=== PATIENT | female | born 1980 | race Caucasian/White ===

== ENCOUNTER 2024-06-27 08:41 | Outpatient (AMB) | payer MEDICARE, MEDICAID, SELFPAY ==
--- NOTE | 2024-06-27 08:49 | MHC.OFFVIS ---
Vital Signs 06/27/24 09:03 Height 5 ft 2 in Weight 250 lb 3.594 oz BMI 45.8 BP 120/80 Blood Pressure Location Rt brachial Position Sitting Respiration 16 Pulse 104 H Pulse Source Pulse Oximeter Pulse Oximetry (%) 97 Oxygen Delivery Method Room Air Intake Visit Reasons: Arthralgia/ATC med rec recieved Intake Note: Patient presents for Arthralgia. Cyst behind left knee and swollen since March. Right knee pain. Allergies citalopram [From Celexa] Allergy (Mild, Verified 06/27/24 08:54) Abdominal Pain Medication List - Last Reconciled 06/27/24 by Juan Mark MD albuterol sulfate 90 mcg/actuation 2 puffs inhalation Q6H PRN aspirin 81 mg PO DAILY atorvastatin 80 mg PO DAILY fluticasone propionate 50 mcg/actuation 1 spray intranasal BID hydroxychloroquine 400 mg PO DAILY levothyroxine 300 mcg PO DAILY metformin 1,000 mg PO BID semaglutide (Ozempic) 0.25 mg subcut QWEEK HPI Comments Details: L knee swelling since March. ER ruled out DVT with ultrasound. Unable to walk and using walking at times. She is also using compression stockings without benefit. She had x-ray in left knee, which revealed OA and was referred to PT. She started PT and had one session. PT noted a cyst behind knee. Cyst is painful. She also reports that provider also felt a cyst behind her knee. She denies the term Dykes's cyst being mentioned on an ultrasound. She has been taking Celebrex 100 mg twice a day without benefit. At last visit at [facility], I injected her with right knee cortisone injection 02/01/2024 with benefit. Denies fevers, rash, oral ulcers, Raynaud's phenomenon, urinary symptoms. She has been compliant with hydroxychloroquine. She denies compliance with iron supplement. Review of Systems Const All systems reviewed & are unremarkable except as noted in HPI and below Physical Exam Vital Signs: Last Vital Signs Pulse 104 H 06/27/24 09:03 Resp 16 06/27/24 09:03 BP 120/80 06/27/24 09:03 Pulse Ox 97 06/27/24 09:03 Oxygen Delivery Method Room Air 06/27/24 09:03 BMI result Body Mass Index 45.8 Const Other: General: Comfortable CVS: RRR Respiratory: clear to auscultation bilaterally. Good respiratory effort Skin: No lesions seen MSK: No tenderness of any joints. No synovitis. Good range of motion of upper extremities. Nontender joint line of knees. Tenderness of bilateral hamstrings and distal tendon attachment. No Dykes cyst was palpated. No knee effusion was palpated. Knee flexion 90 degrees left side. Assessment & Plan Assessment & Plan (1) Systemic lupus erythematosus: Comment: History of SLE diagnosed 2007 after [facility] admission presenting with pleurisy, cutaneous SLE and positive double-stranded DNA 1:20. She was on prednisone and hydroxychloroquine. History of chronic leukopenia, iron deficiency anemia, low C4 and elevated ESR. She has had myalgias related to uncontrolled hypothyroidism. Clinically quiescent on hydroxychloroquine. Code(s): M32.9 - Systemic lupus erythematosus, unspecified Category: Medical Qualifiers: Systemic lupus erythematosus organ involvement: unspecified Systemic lupus erythematosus type: unspecified Qualified Code(s): M32.9 - Systemic lupus erythematosus, unspecified Plan: Will obtain labs for disease and drug monitoring of high-risk medication this visit Continue hydroxychloroquine 400 mg daily Eye exam for hydroxychloroquine surveillance visual field testing 11/19/2021 is okay. Eye exam September 2023 without toxicity noted. She was supposed to return for visual field testing but patient does not recall following up. I have asked her to call her skin diver for visual field test. Return to clinic in 3 months (2) Other detention (current) drug therapy: Code(s): Z79.899 - Other detention (current) drug therapy Category: Medical Plan: See above. (3) Knee pain, left: Comment: History of osteoarthritis with recent cortisone injection 02/01/2024 with benefit. Subsequently, in March she developed left leg swelling and reports cyst was palpated posterior knee. I did not appreciate popliteal cyst suggestive of Dykes cyst on exam. It is possible that she has had a ruptured Dykes's cyst contributing to left leg swelling. Hamstring strain is contributing to posterior knee pain. Code(s): M25.562 - Pain in left knee Category: Medical Qualifiers: Chronicity: chronic Qualified Code(s): M25.562 - Pain in left knee; G89.29 - Other chronic pain Plan: Continue physical therapy Will increase Celebrex 100 mg b.i.d. to 200 mg b.i.d. Continue wearing compression stockings. When she is not wearing compression stockings she should wear hinged brace. Prescription sent to [facility]. Return to clinic 3 months Orders: Orders Aspartate Amino Transferase Today M32.9 - Systemic lupus erythematosus, unspecified, Z79.899 - Other detention (current) drug therapy Creatinine Today M32.9 - Systemic lupus erythematosus, unspecified, Z79.899 - Other detention (current) drug therapy T Spot TB Today M32.9 - Systemic lupus erythematosus, unspecified, Z79.899 - Other bed bug exterminator (current) drug therapy Complement C4 Today M32.9 - Systemic lupus erythematosus, unspecified, Z79.899 - Other detention (current) drug therapy Anti DNA DS Antibody Today M32.9 - Systemic lupus erythematosus, unspecified, Z79.899 - Other detention (current) drug therapy Alanine Aminotransferase Today M32.9 - Systemic lupus erythematosus, unspecified, Z79.899 - Other bed bug exterminator (current) drug therapy C Reactive Protein Today M32.9 - Systemic lupus erythematosus, unspecified, Z79.899 - Other bed bug exterminator (current) drug therapy Complete Blood Count Auto Diff Today M32.9 - Systemic lupus erythematosus, unspecified, Z79.899 - Other detention (current) drug therapy Erythrocyte Sedimentation Rate Today M32.9 - Systemic lupus erythematosus, unspecified, Z79.899 - Other detention (current) drug therapy Hepatitis B,C Profile Today M32.9 - Systemic lupus erythematosus, unspecified, Z79.899 - Other detention (current) drug therapy Complement C3 Today M32.9 - Systemic lupus erythematosus, unspecified, Z79.899 - Other detention (current) drug therapy UA w Microscopic Today M32.9 - Systemic lupus erythematosus, unspecified, Z79.899 - Other detention (current) drug therapy Medications: New leg brace (Knee Support Brace) As directed Left knee hinged brace. Dx osteoarthritis 1 ea 0RF celecoxib (Celebrex) Take 1 tablet twice a day with food. (Increased dose) 200 mg PO BID 60 caps 2RF Coding Level of Care Code Est Pt Level 4 (58233) Complex EM visit Add On G2211 Diagnoses Systemic lupus erythematosus, unspecified SLE type, unspecified organ involvement status M32.9 Systemic lupus erythematosus organ involvement: unspecified Systemic lupus erythematosus type: unspecified Other detention (current) drug therapy Z79.899 Chronic pain of left knee M25.562; G89.29 Chronicity: chronic
[2024-06-27 09:03] VITALS: BP 120/80; PULSE 104; RESP 16; O2SAT 97; BMI 45.8
== END 2024-06-27 09:35 | disposition home or self-care (01) ==
PROVIDERS: PCP Nurse Practitioner; Visit Provider Internal Medicine Rheumatology
DX: M32.9 Systemic lupus erythematosus, unspecified (principal); Z79.899 Other long term (current) drug therapy; M25.562 Pain in left knee; G89.29 Other chronic pain
CPT/HCPCS: 99214; G2211

== ENCOUNTER → 2024-06-27 08:41 | Outpatient (BNVA) | payer MEDICARE, SELFPAY | PROVIDERS: PCP Nurse Practitioner; Visit Provider Internal Medicine Rheumatology | DX: M32.9 Systemic lupus erythematosus, unspecified (principal); M25.562 Pain in left knee; G89.29 Other chronic pain; Z79.899 Other long term (current) drug therapy | CPT/HCPCS: 99212 ==

== ENCOUNTER 2024-09-27 08:43 | Outpatient (AMB) | payer MEDICARE, MEDICAID, SELFPAY ==
[2024-09-27 08:56] VITALS: BP 122/82; PULSE 93; O2SAT 97; BMI 46.7
--- NOTE | 2024-09-27 08:56 | A.OFFVIS_ITS ---
Vital Signs 09/27/24 08:56 Height 5 ft 2 in Weight 255 lb 4.725 oz BMI 46.7 BP 122/82 Blood Pressure Location Lt brachial Position Sitting Pulse 93 Pulse Source Pulse Oximeter Pulse Oximetry (%) 97 Oxygen Delivery Method Room Air Intake Visit Reasons: Arthralgia/ATC Intake Note: Patient presents for Arthralgia. Pt states that left leg is still swollen from the last time that she was seen. Accompanied by: Spouse Allergies citalopram [From Celexa] Allergy (Mild, Verified 09/27/24 09:02) Abdominal Pain HPI HPI Arthralgia/ATC: Details: She continues to have left knee pain. She completed physical therapy. Pain is mostly localized to the posterior left knee with intermittent anterior pain. She has been taking Celebrex 100 mg twice a day. She was not given higher dose prescribed last visit from pharmacy. Denies fevers, dyspnea, pleurisy, rash, oral ulcers, urinary symptoms, Raynaud's syndrome. Review of Systems Const All systems reviewed & are unremarkable except as noted in HPI and below Physical Exam Vital Signs: Last Vital Signs Pulse 93 09/27/24 08:56 BP 122/82 09/27/24 08:56 Pulse Ox 97 09/27/24 08:56 Oxygen Delivery Method Room Air 09/27/24 08:56 BMI result Body Mass Index 46.7 Const Other: General: Comfortable CVS: RRR Respiratory: clear to auscultation bilaterally. Good respiratory effort Skin: No lesions seen MSK: No tenderness of any joints. No synovitis. Good range of motion of upper extremities. Left knee joint line tenderness. Tenderness of left hamstrings and distal tendon attachment. No Dykes cyst was palpated. No knee effusion was palpated. Knee flexion 90 degrees left side. Soft tissue swelling left calf compared to right. Office Procedures AMB Joint Injection/Aspiration Joint Injection/Aspiration Details: Left knee joint Prep: site was prepped using aseptic technique Injected: 40 mg of, Kenalog, with 1 mL of and 1% plain lidocaine Procedure: The patient tolerated the procedure well. Postprocedure protocol was discussed with patient. Coding 13893 - Large joint Procedure code (CPT) selection complete Office Meds lidocaine (PF) 10 mg/mL (1 %) injection solution Performing Provider: Juan Mark MD Performing Location: [facility] Administered by: Juan Mark MD on 09/27/24 23:24 Dose Route Admin Location Dispensed Lot Number Expiration Date [facility] [place] [employer] 10 mg Infiltration 2 mL [id number] [employer] Kenalog 40 mg/mL suspension for injection Performing Provider: Juan Mark MD Performing Location: [facility] Administered by: Juan Mark MD on 09/27/24 23:24 Dose Route Admin Location Dispensed Lot Number Expiration Date [facility] [place] [employer] 40 mg intra-articular 1 mL [id number] [employer] Assessment & Plan Assessment & Plan (1) Systemic lupus erythematosus: Comment: Clinically quiescent on hydroxychloroquine. She did not have labs done after last visit. History of SLE diagnosed 2007 after [facility] admission presenting with pleurisy, cutaneous SLE and positive double-stranded DNA 1:20. She was on prednisone and hydroxychloroquine. History of chronic leukopenia, iron deficiency anemia, low C4 and elevated ESR. She has had myalgias related to uncontrolled hypothyroidism. Code(s): M32.9 - Systemic lupus erythematosus, unspecified Category: Medical Qualifiers: Systemic lupus erythematosus organ involvement: unspecified Systemic lupus erythematosus type: unspecified Qualified Code(s): M32.9 - Systemic lupus erythematosus, unspecified Plan: Patient will obtain labs for disease and drug monitoring of high-risk medication this visit Continue hydroxychloroquine 400 mg daily Eye exam for hydroxychloroquine surveillance visual field testing 11/19/2021 is okay. Eye exam September 2023 without toxicity noted. She was supposed to return for visual field testing but has not been able to schedule appointment. I have asked her to call her special events assistant for visual field test. If she does not have appointment scheduled by next visit, I will not be able to continue to prescribe hydroxychloroquine. Return to clinic in 3 months (2) Other group home (current) drug therapy: Code(s): Z79.899 - Other long term care pharmacist (current) drug therapy Category: Medical Plan: See above. (3) Osteoarthritis of left knee: Comment: Uncontrolled pain likely leading to secondary hamstring strain. She also had possibility of Dykes's cyst rupture contributing to posterior knee discomfort palpated by ortho provider. I do not appreciate Dykes's cyst on exam. Failed PT. Last cortisone injection left knee 02/01/2024 with benefit. Code(s): M17.12 - Unilateral primary osteoarthritis, left knee Category: Medical Qualifiers: Osteoarthritis type: primary Qualified Code(s): M17.12 - Unilateral primary osteoarthritis, left knee Plan: Patient received left knee cortisone injection knee brace prescription given to patient Continue to do exercises learned from PT If pain does not improve with cortisone injection, she will call office. I will then prescribe Celebrex 200 mg twice a day Return to clinic in 3 months Orders: Orders AMB Joint Injection/Aspiration Today M17.12 - Unilateral primary osteoarthritis, left knee Medications: New hydroxychloroquine 400 mg (2 x 200 mg) PO DAILY 180 tabs 0RF Refilled leg brace (Knee Support Brace) As directed Left knee hinged brace. Dx osteoarthritis 1 ea 0RF Coding Level of Care Code Est Pt Level 4 (29528) Complex EM visit Add On G2211 Diagnoses Systemic lupus erythematosus, unspecified SLE type, unspecified organ involvement status M32.9 Systemic lupus erythematosus organ involvement: unspecified Systemic lupus erythematosus type: unspecified Other long term care pharmacist (current) drug therapy Z79.899 Primary osteoarthritis of left knee M17.12 Osteoarthritis type: primary CPT Codes Coding - 41432 Large joint: 33918 - Large joint ([id number])
--- OUTSIDE RECORDS SUMMARY | 2024-09-27 09:24 | XMS_ITS | Clinical Summary ---
Author Organization [facility] Address [address] [place] [address] Phone Care Team Providers Care School Psychometrist Name Role Phone Janna De Paz Primary Care Provider [phone] Allergies Active Allergy Reactions Criticality Noted Date Comments Citalopram Hydrobromide Diarrhea,Nausea And Vomiting High 01/24/2009 abd cramping. Duloxetine 08/15/2024 Medications ferrous sulfate 325 mg (65 mg elemental iron) tablet Take 1 Tab by mouth 3 times daily. 08/30/2020 Active albuterol HFA (PROAIR HFA ; PROVENTIL HFA ; VENTOLIN HFA) 90 mcg/actuation inhaler Inhale 2 Puffs into the lungs every 6 hours as needed for Cough or Wheezing. 02/17/2012 Active levothyroxine sodium (TIROSINT) 125 mcg capsule Take 1 Tab by mouth daily. 02/02/2012 Active Active Problems Problem Noted Date Diagnosed Date DVT, lower extremity 10/24/2021 Overview (07/17/2024): 11/13/2020 Left LE DVT: near occlusive thrombosis of left common femoral and left femoral vein; occlusive thrombosis of left popliteal and posterior tibial vein Fibroid uterus 07/12/2020 Overview (07/17/2024): 08/14/2019 Pelvic Sono Impression IMPRESSION: Limited exam. Enlarged uterus with at least 2 fibroids measuring up to 9.3 cm. ??Endometrial complex not identified. Depression 01/17/2009 Sleep apnea 07/12/2007 Overview (07/17/2024): Dr lucas on cpap IMO update Systemic lupus erythematosus 03/07/2007 Overview (07/17/2024): 02/05: pleural effusions; + anti-DNA, low complements, arthralgias, rash; treated with Plaquenil and prednisone Eye exam September 2010 Hypothyroidism 11/09/2005 Overview (07/17/2024): Lab Results Component Value Date TSH 45.80 07/12/2020 TSH 10.44 02/29/2012 TSH 18.39 02/17/2012 Referral to endocrine Encounters Date Type Department Care Team Description 09/27/2024 7:30 AM EST Treatment [facility] [address] [phone] Ruthann Johnson, PT Chronic bilateral low back pain without sciatica (Primary Dx) 09/25/2024 7:30 AM EST Treatment [facility] [address] [phone] Oscar Ashraf, LABORER/KEY MAN Chronic bilateral low back pain without sciatica (Primary Dx) 09/13/2024 8:00 AM EST Treatment [facility] [address] [phone] Parth Toledo, LABORER/KEY MAN Chronic bilateral low back pain without sciatica (Primary Dx) 09/11/2024 7:30 AM EST Treatment [facility] [address] [phone] Oscar Ashraf, LABORER/KEY MAN Chronic bilateral low back pain without sciatica (Primary Dx) 09/05/2024 7:30 AM EST Treatment [facility] [address] [phone] Parth Toledo, LABORER/KEY MAN Myofascial pain (Primary Dx) 09/01/2024 7:30 AM EST Evaluation [facility] [address] [phone] Ruthann Johnson, PT Low back pain (Primary Dx); Myofascial pain; Chronic bilateral low back pain without sciatica 09/01/2024 Plan of Care Documentation [facility] [address] [phone] 08/23/2024 8:30 AM EST Treatment [address] [phone] Joann Johnson, PT Left knee pain, unspecified chronicity (Primary Dx) 08/15/2024 8:30 AM EST Consult Orthopedic Surgery [facility] 160 175 [facility] [address] [place] [address] Ina Chavarria MD Popliteal cyst, left 08/10/2024 7:30 AM EST Treatment [address] [phone] Oscar Ashraf, LABORER/KEY MAN Left knee pain, unspecified chronicity (Primary Dx) 08/03/2024 7:30 AM EST Treatment [address] [phone] Oscar Ashraf, LABORER/KEY MAN Left knee pain, unspecified chronicity (Primary Dx) 07/25/2024 7:30 AM EST Treatment [address] [phone] Parth Toledo, LABORER/KEY MAN Left knee pain, unspecified chronicity (Primary Dx) 07/20/2024 7:30 AM EST Treatment [address] [phone] Oscar Ashraf, LABORER/KEY MAN Left knee pain, unspecified chronicity (Primary Dx) 07/17/2024 7:30 AM EST Treatment [address] [phone] Moskal, Joann, PT Left knee pain, unspecified chronicity from Last 3 Months Immunizations Name Administration Dates Next Due Hepatitis B (Nhfivas-J-Qtmgk , Recombivax HB-Adult) 19yo and older 08/24/2000 PPD Test 04/09/2001,04/07/2001 Surgical History Surgery Date Site/Laterality Comments TUBAL LIGATION PROCEDURE: HISTORICAL TUBAL LIGATION SECTION PROCEDURE: HISTORICAL DELIVERY Medical History Medical History Date Comments Acute bronchospasm 01/31/2007 DX:Acute bron chospasm Pneumonia, organism unspecified(486) 01/31/2007 DX:Pneumonia, organism unspecified(486) Noncompliance with medication regimen 05/10/2008 DX:Noncompliance with medication regimen Systemic lupus erythematosus (CMS/HCC) 03/07/2007 DX:Systemic lupus erythematosus (HCC); COMMENT: 02/05: pleural effusions; + anti-DNA, low complements, arthralgias, rash; treated with Plaquenil and prednisone Depression 01/17/2009 DX:Depression Cholelithiasis 2017 DX:Cholelithiasi s Renal calculi DX:Renal calculi ; COMMENT: 2018 Fatty liver 09/2017 DX:Fatty liver Family History Medical History Relation Name Comments Hyperlipidemia Father Stroke Father Coronary artery disease Mother Hyperlipidemia Mother Breast cancer Neg Hx Ovarian cancer Neg Hx Relation Name Status Comments Brother Alive 1,healthy Father Alive Mother Alive palpitations Sister Alive 1,healthy Social History Tobacco Use Types Packs/Day Years Used Date Smoking Tobacco: Former Smokeless Tobacco: Never Alcohol Use Standard Drinks/Week Comments Yes 0 (1 standard drink = 0.6 oz pur e alcohol) Comments Unknown Sex and Gender Information Value Date Recorded Sex Assigned at Not on file Legal Sex Female 4:56 AM EST Gender Identity Not on file Sexual Orientation Not on file Obstetrics History Last Filed Vital Signs Vital Sign Reading Time Taken Comments Blood Pressure - - Pulse - - Temperature - - Respiratory Rate - - Oxygen Saturation - - Inhaled Oxygen Concentration - - Weight 114 kg (252 lb) 08/15/2024 8:33 AM EST Height 157.5 cm (5' 2 ) 08/15/2024 8:33 AM EST Body Mass Index 46.09 08/15/2024 8:33 AM EST Plan of Treatment Health Maintenance Due Date Last Done Comments Breast Cancer Screening 1980 Diabetes: Annual Foot Exam 1990 Diabetes: Annual Retina Eye Exam 1990 Hepatitis A Vaccines (1 of 2 - Risk 2-dose series) 1999 Medicare Annual Wellness Visit 07/05/2022 Social Influencers of Health Screening 07/05/2022 COVID-19 Vaccine ( season) 2024 10/07/2023, 07/31/2022, 05/13/2022, Additional history exists Diabetes: Blood Sugar Control Test (HGBA1C) 01/12/2025 07/14/2024 Diabetes: Annual Urine Albumin-Creatinine Ratio (uACR) 02/23/2025 02/24/2024, 02/17/2012 Diabetes: Annual GFR (Glomerular Filtration Rate) 02/23/2025 02/24/2024, 07/17/2010 Depression Screening 05/30/2025 05/30/2024 Cholesterol Screening (Lipid Panel) 10/06/2028 10/07/2023, 10/07/2023, 01/02/2019 DTaP,Tdap,and Td Vaccines (3 - Td or Tdap) 06/01/2033 06/01/2023, 01/13/2013 HIV Screening Completed 02/01/2012 Hepatitis C Screening Completed 07/31/2022, 011 Hepatitis B Vaccines Completed 10/07/2023, 08/24/2000, 06/16/2000 Influenza Vaccine Completed 05/02/2024, , 05/13/2022, Additional history exists Pneumococcal Vaccine: Pediatrics (0 to 5 Years) and At-Risk Patients (6 to 64 Years) Aged Out 07/14/2024, 02/10/2007 No longer eligibl e based on patient's age to complete this topic HIB Vaccines Aged Out No longer eligi ble based on patient's age to complete this topic HPV Vaccines Aged Out No longer eligi ble based on patient's age to complete this topic IPV Vaccines Aged Out No longer eligi ble based on patient's age to complete this topic MMR Vaccines Aged Out No longer eligi ble based on patient's age to complete this topic Meningococcal ACWY Vaccine Aged Out N o longer eligible based on patient's age to complete this topic Meningococcal B Vacine Aged Out No lo nger eligible based on patient's age to complete this topic RSV Immunization Patients Under 20 months Aged Out No longer eligible based on patient's age to complete this topic Varicella Vaccines Aged Out No longer eligible based on patient's age to complete this topic Goals Goal Patient Goal Type Associated Problems Recent Progress Patient-Stated? Author LTG - 8 visits General No Joann Johnson, PT Note: 05/30/2024 11:38 AM - Active [...] Patient is independent and compliant with HEP PT STG (4 visits) General No Ruthann Johnson, PT Note: Pt will demonstrate compliance with HEP Pt will report decreased pain level to < 5/10 at worst Pt will increase lumbar AROM to 75% without pain Pt will increase hip ABD MMT to 3/5 Pt will increase hip extension MMT to 3-/5 PT LTG (8 visits) General No Ruthann Johnson, PT Note: Pt will demonstrate independence with HEP Pt will report decreased pain level to < 2/10 at worst Pt will demonstrate full pain-free lumbar AROM Pt will increase hip MMT to at least 3+/5 Pt will report increased standing and walking tolerance to ad lily Procedures Procedure Name Priority Date/Time Associated Diagnosis Comments URINE ALBUMIN CREATININE RATIO Routine 02/17/2012 HIV SCREENING Routine 02/01/2012 HEPATITIS C SCREENING Routine 07/15/2011 ANNUAL BMP BLOOD TEST Routine 07/17/2010 from Last 3 Months or Most Recently Relevant to Health Maintenance Results * Urine Albumin Creatinine Ratio (02/17/2012) Urine Albumin Creatinine Ratio Abstracted Historical Provider HEALTH MAINTENANCE Final Result * HIV Screening (02/01/2012) HIV Screening Abstracted Historical Provider HEALTH MAINTENANCE Final Result * Hepatitis C Screening (07/15/2011) Hepatitis C Screening Abstracted Historical Provider HEALTH MAINTENANCE Final Result * Annual BMP Blood Test (07/17/2010) Annual BMP Blood Test Abstracted Result [facility] Historical Provider HEALTH MAINTENANCE Final Result from Last 3 Months or Most Recently Relevant to Health Maintenance Insurance MEDICARE MEDICAID - [place] Care Teams School Psychometrist Relationship Specialty Start Date End Date Janna De Paz PA [address] [place] [address] PCP - General Internal Medicine 05/12/19
--- OUTSIDE RECORDS SUMMARY | 2024-09-27 09:24 | XMS_ITS | Encounter Summary ---
Author Organization [facility] Address [address] [place] [address] Care Team Providers Care Instructional Technology Coordinator Name Role Phone Janna De Paz Primary Care Provider [phone] Reason for Visit * Consultation (Routine) - Authorized Specialty Diagnoses / Procedures Referred By Contac t Referred To Contact Physical Therapy Diagnoses Low back pain Myofascial pain Philip Saldana MD [address] [place] [address] Phone: tel: fax: [address] [address] Phone: tel: fax: Referral ID Status Reason Start Date Expiration Date Visits Requested Visits Authorized [id number] Authorized Specialty Services Required 08/24/2024 08/24/2025 8 8 Encounter Details Date Type Department Care Team (Late st Contact Info) Description 09/27/2024 7:30 AM EST Treatment [facility] [address] [phone] Ruthann Johnson PT Chronic bilateral low back pain without sciatica (Primary Dx) Social History Tobacco Use Types Packs/Day Years [...] standing and walking tolerance to ad lily documented as of this encounter Visit Diagnoses Diagnosis Chronic bilateral low back pain without sciatica- Primary documented in this encounter Care Teams Instructional Technology Coordinator Relationship Specialty Start Date End Date Janna De Paz PA [address] [place] [address] PCP - General Internal Medicine 05/12/19 documented as of this encounter
--- OUTSIDE RECORDS SUMMARY | 2024-09-27 09:24 | XMS_ITS | Encounter Summary ---
Author Organization [facility] Address [address] [place] [address] Care Team Providers Care Director Of Quantitative Research Name Role Phone Zoey Bragg NP Primary Care Provider [phone] Reason for Visit * Reason Comments Case Management SACHIN Assessment Encounter Details Date Type Department Care Team ([facility] st Contact Info) Description 11/15/2020 Interim Notes [address] [phone] Sangeeta Mccray, RN [address] [place] [phone] Social History Tobacco Use Types Packs/Day Years Used Date Smoking Tobacco: Former Cigarettes Smokeless Tobacco: Former Comments:Occassional use of cigs on stressful days Alcohol Use Standard Drinks/Week Comments Yes 1 (1 standard drink = 0.6 oz pur e alcohol) Socially Social Connections Answer Date Recorded Social Connections and Isolation 0 03/21/2019 Financial Resource Strain Answer Date R ecorded Financial Resource Strain 0 2018 Stress Answer Date Recorded Stress 0 03/21/2019 Physical Activity Answer Date Recorded Physical Activity 0 03/21/2019 Food Insecurity Answer Date Recorded Food 0 03/21/2019 Transportation Needs Answer Date Record ed Transportation 0 03/21/2019 Housing Stability Answer Date Recorded Housing 0 03/21/2019 Safety and Environment Answer Date Keanu rded Safety 0 03/21/2019 Utilities Answer Date Recorded Utilities 0 03/21/2019 Employment Answer Date Recorded Employment 0 03/21/2019 Comments No Sex and Gender Information Value Date Recorded Sex Assigned at Female 01/02/2019 9:50 AM PDT Legal Sex Female 12:35 PM PDT Gender Identity Female 01/02/2019 9:50 AM PDT Sexual Orientation Straight 05/07/2022 4: 31 PM PDT COVID-19 Exposure Response Date Recorded In the last month, have you been in contact with someone who was confirmed or suspected to have Coronavirus / COVID-19? No / Unsure 10/22/2020 4:12 PM PDT documented as of this encounter Plan of Treatment Upcoming Encounters Date Type Department Care Team (Late st Contact Info) Description 10/06/2024 4:30 PM EST / Visits [address] [phone] Monika Camacho, BLOWER BLAST FURNACE [address] [place] [phone] 10/18/2024 8:40 AM EDT Office Visit [address] [phone] Zoey Bragg NP [address] [place] [phone] 10/31/2024 8:40 AM EDT Office Visit [address] [phone] Boo Hubbard MD [address] [place] [address] documented as of this encounter Visit Diagnoses Not on filedocumented in this encounter Additional Health Concerns Infection Onset Date Last Indicated Resolved Time COVID-19 (rule-out) Comment:Added automatically based on ordered lab. 01/03/2021 01/03/2021 01/08/2021 10:45 AM PDT Assessment Noted Time PHQ-9 Depression Total Score: 0 10/08/19 21 1:42 PM PST documented as of this encounter Care Teams Director Of Quantitative Research Relationship Specialty Start Date End Date Zoey Bragg NP [address] [place] [address] PCP - General Family Medicine, SAWYER HELPER 06/07/24 documented as of this encounter
--- OUTSIDE RECORDS SUMMARY | 2024-09-27 09:25 | XMS_ITS | Encounter Summary ---
Author Organization [facility] Address [address] [place] [address] Care Team Providers Care Report Manager Name Role Phone Janna De Paz Primary Care Provider [phone] Reason for Visit * Consultation (Routine) - Closed Specialty Diagnoses / Procedures Referred By Contac t Referred To Contact Physical Therapy Diagnoses Left knee pain, unspecified chronicity Philip Saldana MD [address] [place] [address] Phone: tel: fax: [facility] [address] [address] Phone: tel: fax: Referral ID Status Reason Start Date Expiration Date V isits Requested Visits Authorized [id number] Closed Specialty Services Required 07/11/2024 07/11/2025 16 8 Encounter Details Date Type Department Care Team (Late st Contact Info) Description 09/05/2024 7:30 AM EST Treatment [facility] [address] [phone] Parth Toledo, LINDEN Myofascial pain (Primary Dx) Social History Tobacco Use Types [...] on file documented as of this encounter Progress Notes * Parth Toledo PTA - 09/05/2024 7:30 AM EST [facility] - Outpatient PHYSICAL THERAPY DAILY TREATMENT NOTE - OP Date: 09/05/2024 Visit Number: [id number] Patient Name: Isabel Morton : 1980 Age: 44 y.o. Gender: female Diagnosis: ICD-10-CM ICD-9-CM 1. Myofascial pain M79.18 729.1 Date of Onset/Surgery: 09/01/2024 Referring Provider: Philip Saldana MD Insurance: Payor: MEDICARE / Plan: MEDICARE PART A & B / Product Type: Medicare / Patient Identified by: Parth Toledo PTA Language: Setswana Medications: Current Outpatient Medications on File Prior to Visit Medication Sig Dispense Refill albuterol HFA (PROAIR HFA ; PROVENTIL HFA ; VENTOLIN HFA) 90 mcg/actuation inhaler Inhale 2 Puffs into the lungs every 6 hours as needed for Cough or Wheezing. ferrous sulfate 325 mg (65 mg elemental iron) tablet Take 1 Tab by mouth 3 times daily. levothyroxine sodium (TIROSINT) 125 mcg capsule Take 1 Tab by mouth daily. No current facility-administered medications on file prior to visit. Allergies: is allergic to citalopram hydrobromide and cymbalta [duloxetine]. Precautions: Fall risk: No Patient/Caregiver Goals: SUBJECTIVE Subjective Report: pt reports cont pain across lower back Chart Reviewed: Yes Pain Lower back 6/10 OBJECTIVE TREATMENT INTERVENTION: Nu step x 5 min Hamstring and hip flexor stretch 2 x 20 sec hold each (B) Standing hip ext/abd/marching x 15 each (B) LTR x 3 with 20 sec hold (B) H/L hip add pillow squeeze x 15 H/L abd bracing x 15 H/L abd bracing with marching x 15 (B) (B) LE traction with feet on tball ASSESSMENT/Response to Treatment Fair some pain with there ex Patient Education: Education provided: Yes Education Provided To: Patient utilizing Explanation mode(s) of education Response to Education: Verbal Understanding PLAN POC Development/Review: No Change in the Plan of Care; Participants: Patient Total Treatment Time: 30 Modalities: Therapeutic procedures: Documentation completed by Parth Toledo PTA documented in this encounter Plan of Treatment Not on [...] compliant with HEP PT STG (4 visits) Ruthann Deshpande, PT Note: Pt will demonstrate compliance with HEP Pt will report decreased pain level to < 5/10 at worst Pt will increase lumbar AROM to 75% without pain Pt will increase hip ABD MMT to 3/5 Pt will increase hip extension MMT to 3-/5 PT LTG (8 visits) Ruthann Deshpande, PT Note: Pt will demonstrate independence with HEP Pt will report decreased pain level to < 2/10 at worst Pt will demonstrate full pain-free lumbar AROM Pt will increase hip MMT to at least 3+/5 Pt will report increased standing and walking tolerance to ad lily documented as of this encounter Visit Diagnoses Diagnosis Myofascial pain- Primary Unspecified myalgia and myositis documented in this encounter Care Teams Report Manager Relationship Specialty Start Date End Date Janna De Paz PA [address] [place] [address] PCP - General Internal Medicine 05/12/19 documented as of this encounter
--- OUTSIDE RECORDS SUMMARY | 2024-09-27 09:25 | XMS_ITS | Encounter Summary ---
Author Organization [facility] Address [address] [place] [address] Care Team Providers Care Sand Blaster Name Role Phone Janna De Paz Primary Care Provider Reason for Visit * Consultation (Routine) - Authorized Specialty Diagnoses / Procedures Referred By Contac t Referred To Contact Physical Therapy Diagnoses Low back pain Myofascial pain Philip Saldana MD [address] [place] [address] Phone: tel: fax: [address] [address] Phone: tel: fax: Referral ID Status Reason Start Date Expiration Date Visits Requested Visits Authorized [id number] Authorized Specialty Services Required 08/24/2024 08/24/2025 8 8 Encounter Details Date Type Department Care Team (Latest Contact Info) Description 09/01/2024 7:30 AM EST Evaluation [facility] [address] [address] Ruthann Johnson PT Low back pain (Primary Dx); Myofascial pain; Chronic bilateral low back pain without sciatica Social History Tobacco Use Types Packs/Day Years [...] as of this encounter Progress Notes * Ruthann Johnson PT - 09/01/2024 7:30 AM EST [facility] - Outpatient PHYSICAL THERAPY EVALUATION Date: 09/01/2024 Visit Number: 7 Patient Name: Isabel Morton : 1980 Age: 44 y.o. Gender: female Diagnosis: ICD-10-CM ICD-9-CM 1. Low back pain M54.50 724.2 Ambulatory referral to Physical Therapy and Athletic Training 2. Myofascial pain M79.18 729.1 Ambulatory referral to Physical Therapy and Athletic Training Date of Onset/Surgery: 09/01/2024 Referring Provider: Philip Saldana MD Insurance: Payor: MEDICARE / Plan: MEDICARE PART A & B / Product Type: Medicare / Patient identified by: Ruthann Johnson PT Language: Speaks and understands Samoan as preferred language with no deaf interpreter required Chart Reviewed: Yes Medications: Current Outpatient Medications on File Prior [...] facility-administered medications on file prior to visit. Discussed current medications that may impact therapy. Medication list obtained and reviewed. Referto document in medical record. Advised Patient to contact MD with any questions regarding medications and importance of managing medication information. has a past medical history of Acute bronchospasm (01/31/2007), Cholelithiasis (2017), Depression (01/17/2009), Fatty liver (09/2017), Noncompliance with medication regimen (05/10/2008), Pneumonia, organism unspecified(486) (01/31/2007), Renal calculi, and Systemic lupus erythematosus (CMS/HCC) (03/07/2007). has a past surgical history that includes Tubal ligation and Section. is allergic to citalopram hydrobromide and cymbalta [duloxetine]. Precautions: DM, h/o heart condition (currently undergoing workup) Concurrent Services: No Concurrent Services Previous Medical Care/Therapy: pt goes to pain management every 5-6 months for injections into her low back (last session was 08/07/2024); pt just completed PT for L knee pain without significant improvement SUBJECTIVE History of Present Illness/Subjective Report: Pt presents with report of chronic low back pain since her hysterectomy in 2020. Pt reported that her most recent injections didn't work as well as previous injections. No recent imaging reported. Pt referred to PT for evaluation and treatment. Current Functional Limitations: Reported by Patient difficulty with housework (dishes, sweeping), shopping, prolonged walking, prolonged standing, sleeping, forward bending Is the patient at Risk for Falls: No Pain: Low back, chronic, achy/burning/throbbing/sharp/shooting, 5-6/10 currently, 9/10 at worst over the past week Home Environment: Pt lives in second floor apartment. Prior Level of Function: independent with ambulation, assist with dressing, assist with transfer into tub OBJECTIVE Posture: sitting: forward head, rounded shoulders, elevated and protracted scapulae, decreased lordosis Palpation: TTP central low back over L5/S1; CPA L2-L5: hypomobile Range of Motion: Lumbar AROM: Flexion: 50% +pain Extension: 50% +pain SB L: 50% +pain SB R: 50% +pain Rot L: 75% Rot R: 75% Hip IR PROM: WFL (B) Hip ER PROM: WFL (B) Hamstring length: decreased bilaterally to approximately -35 deg Strength: Hip MMT: ABD: 3-/5 L +pain, 3-/5 R +pain Extension: 2+/5 L +pain, 2+/5 R +pain Special Tests: Straight leg raise test: negative Crossed straight leg raise test: negative Anne's test: positive (B), L>R Leona's test: positive on L TREATMENT INTERVENTION Modalities: None performed Procedures: None performed ASSESSMENT/Response to Treatment: Isabel Morton is a 44 y.o. female presenting for outpatient physical therapy evaluation with complaints of chronic low back pain. Significant clinical findings include: decreased lumbar AROM, decreased hip and core strength and pain with functional movement. Patients progress may be limited by pain. Skilled Physical therapy is medically necessary to address limitations to increase lumbar stabilization, core strength and hip strength to provide stability in order to allow for greater ease during functional movement. Rehabilitation Potential: Rehab Potential: Functional Improvement in Response to Therapy Motivation for Rehab: Good Support Structure: Good Learning Needs: Were Patient Learning needs assessed: Yes Learning Preferences: Explanation and Printed Materials Barriers to Learning: No Barriers to Learning Patient Education: [x] Discussed, with patient and/or caregiver, the recommended plan of care/goals, the importance oftherapy and appointment compliance in order to achieve goals in a timely manner. Education provided: initiated HEP: supine piriformis and figure-4 stretch, 3 x 15 seconds each bilaterally with use of towel to assist with pull; lumbar flexion and extension AROM in HL, 10 x 5 second hold in each direction; instructed pt on proper use of towel roll to support lumbar spine when sitting Education Provided To: Patient utilizing Explanation, Demonstration, and Printed Material as mode(s) of education. Response to Education: Verbal Understanding and Demonstrated Skills GOALS Goals Addressed This Visit's Progress PT STG (4 visits) Pt will demonstrate compliance with HEP Pt will report decreased pain level to < 5/10 at worst Pt will increase lumbar AROM to 75% without pain Pt will increase hip ABD MMT to 3/5 Pt will increase hip extension MMT to 3-/5 PT STG (8 visits) Pt will demonstrate independence with HEP Pt will report decreased pain level to < 2/10 at worst Pt will demonstrate full pain-free lumbar AROM Pt will increase hip MMT to at least 3+/5 Pt will report increased standing and walking tolerance to ad lily PLAN POC Development/Review: Initial Evaluation; Participants: Patient Skilled Therapy Plan Required: YES- Reasons for Rehab and Medical Necessity -- Function in Community Planned Therapy Interventions: Cold Pack, Hot Pack, Kinesiotaping, Manual Therapy, Neuromuscular Re-education, Therapeutic Activity, Therapeutic Exercise, and Other: postural education Recommended Consults: lymphedema consult to evaluated swelling throughout LLE Equipment Recommended: none; Equipment Provided: none Frequency/Duration: 2x/wk for 4 wks BILLING TOTAL TREATMENT TIME: 60 Minutes Evaluation Medium Complexity Justification ::: A history of present problem with 1 - 2 personal factors and/or co-morbidities that impact the plan of care and An examination of body systems using standardized tests and measures in addressing a total of 3 or more elements from any of the following body structures and functions, activity limitations, and/or participation restrictions Documentation completed by Ruthann Johnson PT [address] [address] Dept: [phone] Dept PATIENT NAME: Isabel Morton : 1980 Certification: This is to certify that the above named patient, who is under my care, requires skilled Therapy services as described in the above treatment plan. I further certify that the services outlined in this plan are skilled and medically necessary. I have reviewed this plan for rehabilitation services, and I recommend that these services continue to meet the above stated goals and plan. SIGNATURE: DATE Philip Saldana MD Referring provider documented in this encounter Plan of Treatment Not on file documented as of this encounter Goals Goal Patient Goal Type Associated Problems Recent Progress Patient-Stated? Author LTG - 8 visits Joann Corley PT Note: 05/30/2024 11:38 AM - Active [...] with HEP PT STG (4 visits) Ruthann Deshpande PT Note: Pt will demonstrate compliance with [...] as of this encounter Visit Diagnoses Diagnosis Low back pain- Primary Lumbago Myofascial pain Unspecified myalgia and myositis Chronic bilateral low back pain without sciatica documented in this encounter Orders Outpatient Referral Count Last Ordered Date st Ordered Date AMB REFERRAL TO PHYSICAL THE [facility]AP[facility] AND ATHLETIC TRAINING 1 09/01/2024 documented in this encounter Care Teams Sand Blaster Relationship Specialty Start Date End Date Janna De Paz PA [facility] [place] [address] PCP - General Internal Medicine 05/12/19 documented as of this encounter
--- OUTSIDE RECORDS SUMMARY | 2024-09-27 09:25 | XMS_ITS | Encounter Summary ---
Author Organization [facility] Address [address] [place] [address] Care Team Providers Care Machine Design Teacher Name Role Phone Janna De Paz Primary Care Provider [phone] Reason for Visit * Consultation (Routine) - Authorized Specialty Diagnoses / Procedures Referred By Contac t Referred To Contact Physical Therapy Diagnoses Low back pain Myofascial pain Philip Saldana MD [address] [place] [address] Phone: tel: fax: [address] [address] Phone: tel: fax: Referral ID Status Reason Start Date Expiration Date Visits Requested Visits Authorized [id number] Authorized Specialty Services Required 08/24/2024 08/24/2025 8 8 Encounter Details Date Type Department Care Team (Late st Contact Info) Description 09/25/2024 7:30 AM EST Treatment [facility] [address] [address] Oscar Ashraf, EDGER LINER Chronic bilateral low back pain without sciatica [...] as of this encounter Progress Notes * Oscar Ashraf PTA - 09/25/2024 7:30 AM EST [facility] - Outpatient PHYSICAL THERAPY DAILY TREATMENT NOTE - OP Date: 09/25/2024 Visit Number: 5 Patient Name: Isabel Morton : 1980 Age: 44 y.o. Gender: female Diagnosis: ICD-10-CM ICD-9-CM 1. Chronic bilateral low back pain without sciatica M54.50 724.2 G89.29 338.29 Date of Onset/Surgery: 09/01/2024 Referring Provider: Philip Saldana MD Insurance: Payor: MEDICARE / Plan: MEDICARE PART A & B / Product Type: Medicare / Patient Identified by: Oscar Ashraf PTA Language: Palauan Medications: Current Outpatient Medications on File Prior [...] No Patient/Caregiver Goals: SUBJECTIVE Subjective Report: pt cont with pain in her back and knee Chart Reviewed: Yes Pain Lower back 6/10 OBJECTIVE TREATMENT INTERVENTION: Nu step x 6:30min lv 5 Hamstring and hip flexor stretch 3 x 20 sec hold each (B) Standing hip ext/abd/marching x 20 each (B) GREENtband LTR x 3 with 20 sec hold (B) 8 inch step ups x 20 Bridging x20 H/L with t-band pulldown for TA contraction x 15 with 5 sec hold ASSESSMENT/Response to Treatment Good pt mentioned making more appts sheing she missed some Patient Education: Education provided: Yes Education Provided To: Patient utilizing Explanation mode(s) of education Response to Education: Verbal Understanding PLAN POC Development/Review: No Change in the Plan of Care; Participants: Patient Total Treatment Time: 30 Modalities: Therapeutic procedures: Documentation completed by Oscar Ashraf PTA documented in this encounter Plan of [...] Primary documented in this encounter Care Teams Machine Design Teacher Relationship Specialty Start Date End Date Janna De Paz PA [address] [place] [address] PCP - General Internal Medicine 05/12/19 documented as of this encounter
--- OUTSIDE RECORDS SUMMARY | 2024-09-27 09:25 | XMS_ITS | Clinical Summary ---
Author Organization [facility] Address [address] [place] [address] Care Team Providers Care Attendant [employer] Name Role Phone Yemi Messifloresita STIVEN Primary Care Provider [phone] Source Comments PLEASE NOTE, if this patient is a minor, it may be UNLAWFUL to discuss sensitive information that is contained in these records (such as FAMILY PLANNING, MENTAL HEALTH or SUBSTANCE ABUSE) with the minor patient's parent or other person without the patient's specific authorization.[facility] Allergies Active Allergy Reactions Criticality Noted Date Comments Citalopram Other (See Comments) High 03/31/2016 Severe abdominal pain Medications miscellaneous medical supply miscIndications: Post-operative state,Uterine leiomyoma, unspecified location by miscellaneous route once daily Shower chair. 3 month need. Dx: post-operative status, h/o hysterectomy 1 Each 021 Active walker Walker, See Instructions, # 1 each, Refills 0, Tot. Refills 0, Maintenance, DX: Acute Left femoral DVT, leg pain, unstable gait Height:157 cm, Weight: 125.6 Kg , 11/15/20 12:01:00 EDT, Supply 021 Active hydrOXYchloroQUI NE (PLAQUENIL) 200 mg tablet Take 400 mg by mouth once daily 022 Active albuterol HFA 90 mcg/actuation inhalerIndicatio ns:Shortness of breath Inhale 2 Puffs into the lungs every 4 (four) hours as needed for shortness of breath 18 g 5 024 Active budesonide (PULMICORT FLEXHALER) 180 mcg/actuation inhalerIndicatio ns:Shortness of breath Inhale 1 Puff into the lungs 2 (two) times daily 3 Each 1 024 Active blood-glucose meter monitoring kitIndications:T ype 2 diabetes mellitus without complication, without long-term current use of insulin ([facility]) Check FBS daily E11.65. Freestyle Lite 1 Each 024 Active alcohol swabsIndications :Type 2 diabetes mellitus without complication, without long-term current use of insulin ([facility]) Check FBS daily E11.65. 100 Each 11 024 Active melatonin 10 mg capIndications:I nsomnia, unspecified type Take 1 Capsule by mouth nightly at bedtime as needed (insomnia) 90 Capsule 1 024 Active simvastatin (ZOCOR) 20 mg tabletIndication s:Type 2 diabetes mellitus with other circulatory complications ([facility]) Take 1 Tablet by mouth nightly at bedtime 90 Tablet 1 Active semaglutide (OZEMPIC) 0.25 mg or 0.5 mg (2 mg/3 mL) pen injectorIndicati ons:Type 2 diabetes mellitus with other circulatory complications ([facility]),Class 3 severe obesity due to excess calories with serious comorbidity and body mass index (BMI) of 45.0 to 49.9 in adult ([facility]) Inject 0.25 mg into the skin once a week for 28 days, THEN 0.5 mg once a week for 28 days. 3 mL 5 Active compress.stockin g,knee,reg,medIn dications:Type 2 diabetes mellitus with other circulatory complications ([facility]) Cmopresion stockings 20-30 mmHg; lifetime need. 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 Freestyle Lite 100 Each 11 024 Active lancetsIndicatio ns:Type 2 diabetes mellitus without complication, without long-term current use of insulin ([facility]) Check FBS daily E11.65. Freestyle Lite 100 Each 11 024 Active metFORMIN (GLUCOPHAGE) 1,000 mg tabletIndication s:Type 2 diabetes mellitus with other circulatory complications ([facility]) TAKE 1 TABLET BY MOUTH TWICE A DAY WITH A MEAL 180 Tablet 1 025 Active sertraline (ZOLOFT) 25 mg tabletIndication s:Current mild episode of major depressive disorder without prior episode ([facility]CC-[facility]),Anxiet y,Panic attacks Take 2 Tablets by mouth once daily for 180 days 60 Tablet 5 025 2024 Active metFORMIN (GLUCOPHAGE) 1,000 mg tabletIndication s:Type 2 diabetes mellitus with other circulatory complications ([facility]) Take 1 Tablet by mouth 2 (two) times daily with a meal 180 Tablet 1 024 2024 Discontinued sertraline (ZOLOFT) 25 mg tabletIndication s:Current mild episode of major depressive disorder without prior episode ([facility]CC-CMS),Anxiet y,Panic attacks Take 1 Tablet by mouth once daily for 180 days 30 Tablet 5 025 2024 Discontinued(I neffective therapy) Active Problems Problem Noted Date Diagnosed Date History of nuclear stress test 08/27/2024 Overview (08/27/2024): 08/18/24 [facility] Assessment/Plan 1. Abnormal stress test Although the nuclear stress test was abnormal there was no evidence of any associated wall motion abnormalities and the test was significant for breast attenuation. Moreover there was normal resting wall motion and function as well as normal LV function with a stress suggesting no significant or obstructive CAD. I suspect this is a false positive nuclear stress test. I do not think she is high or intermediate risk for atherosclerotic cardiovascular events in 10 years. Her risk could be in the intermediate range. Her symptoms are not conclusive. Therefore, there is no indication for any invasive evaluation to rule out coronary disease. Given her risk factors and symptoms it would be a good idea to rule out any significant coronary artery calcification by noncontrast CT of heart. We will order that and if it is highly positive, we will consider further evaluation in the future. Ordered: CT Heart W/O Dye Fan Eval ECG 12 Lead 2. SOB (shortness of breath) on exertion It is possibly multifactorial and morbid obesity, obstructive sleep apnea or potential contributory factors. At this time I am not highly suspicious for any significant or obstructive CAD or valvular heart disease. Ordered: CT Heart W/O Dye Fan Eval Echo Complete 3. Palpitations She had a significant episode of sudden tachycardia which resolved spontaneously. Given her morbid obesity and history of obstructive sleep apnea, she would be at risk for developing cardiac arrhythmia. Follow-up get an echocardiogram for further evaluation for LV and RV function as well as valvular heart disease. Ordered: Echo Complete We will give her a call after coronary CTA and echo are completed. If she needs any further evaluation we will discuss in detail during next visit or over phone. H/O complete eye exam 03/08/2024 Overview (03/08/2024): Eye exam 09/03/23 [facility]. Melasma 01/18/2024 Overview (01/18/2024): 01/10/24 Eval at [facility]. Recommends hydroquinone 4% cream BID, f/u 6 months. Panic attacks 11/25/2023 Shingles 11/25/2023 Overview (11/25/2023): Dx in ED 10/24/23 Type 2 diabetes mellitus wit hout complication, without long-term current use of insulin ([facility]) 10/12/2023 Financial difficulties 02/23/2023 Current episode of major dep ressive disorder without prior episode 05/22/2021 Anxiety 05/22/2021 Shortness of breath 03/25/2021 Overview (08/27/2024): 08/18/24: f/u [facility] Assessment/Plan 1. Dyspnea on exertion 2. Possible asthma 3. DIANNA on CPAP Other chronic medical problems: Morbid obesity with a BMI of 48, SLE, history of DVT on apixaban, uterine fibroids status post hysterectomy. Overall patient's dyspnea is likely multifactorial including obesity, deconditioning, atelectasis,. She is also at risk for pulmonary hypertension given her DIANNA, obesity, and potential diastolic dysfunction and pulmonary pathology. Additionally she may have asthma as clinically she is reporting some worsening triggers. - continue asa and statin, f/u with cardiology at scheduled appointment this week re abnormal stress test - Will order Echo due to possibility her sx are more cardiac - continue Symbicort twice daily - continue albuterol PRN as this seems to be helping the most - Encouraged to continue a regular exercise routine and weight loss, she will continue Ozempic - Will order CPAP per recent sleep study and she can f/u with sleep medicine at upcoming appointment. Return to clinic in 6 months. Thank you for allowing me to participate in the care of this patient. Was seen with PGY 3 Dr. Arango Echocardiogram 01/22/21 at [facility] shows 1. This is a technically difficult study. 2. Contrast was used to help delineate endocardial broders. Normal LV size, wall thickness and systolic function. Normal regional wall motion. LV ejection fraction is 55-60%. E-A reversal c/w mild diastolic relaxation abnormality. 3. Normal RV size. Reduced RV global systolic function. 4. Mitral valve not well visualized. Trace tricuspid regurgitation. Pulm artery systolic pressure could not be obtained. 6. Pulm valve not well visualized. 02/25/21 Eval [facility]. SOB on exertion, likely due to deconditioning, bedbound, weight gain. ? Of asthma due to hx seasonal allergies and eczema. Lupus pneumonitis less likely. Obtain PFT. If negative will obtain methacholine challenge test. Trial Flovent 110 2 puff BID and albuterol as needed. Recommend weight loss. F/u 6 months. 11/19/23 Eval at [facility]. Dyspnea is likely multifactoral. Recommends full PFTs, stress test with echo. Exercise, compliance with CPAP for DIANNA. Consider Symbicort in the future. 03/03/24 F/u [facility]; Dyspnea likely multifactoral. Recommend exercise, weight loss. Switch from Pulmicort to Symbicort. Reschedule sleep study and get CPAP. Advised nuclear stress test and referral to sleep medicine. Hepatic steatosis 01/23/2021 Overview (10/18/2023): Liver U/s 10/14/23 shows Diffuse hepatic steatosis, otherwise unremarkable ultrasound of the right upper quadrant. No cholelithiasis, gallbladder wall thickening, or biliary dilatation is appreciated. Acute deep vein thrombosis ( DVT) of femoral vein of left lower extremity ([facility]) 11/18/2020 Overview (02/10/2021): 11/13/20-11/15/20 admitted to [facility] for Acute DVT of Left femoral vein. presented tp the ED with left lower leg swelling and pain. U/s shows occlusive thrombosis of the left popliteal and posterior tibial veins. Thought to be provoked due to decreased mobility and recent surgery (JENNIFER 2 weeks ago). Started on Percocet and had increased dose with improvement of pain. D/c with walker and PT home eval. Transitioned to Apixaban 10 mg BID x 7 days and then 5 Mg BID. Percocet 5 mg 2 tabs PRN 6 hrs. F/u with PCP for further eval of DVT and repeat U/S> Incidental lung nodule 10/10/2020 Overview (10/10/2020): 10/07/20 CXR shows subcentimeter nodular density in the left lower lung olivares seen on frontal view but not visualized on lateral view. Chest CT considered for further eval. History of kidney stones 10/07/2020 Class 3 severe obesity due t o excess calories with serious comorbidity and body mass index (BMI) of 45.0 to 49.9 in adult ([facility]) 10/07/2020 Primary osteoarthritis of left knee 05/06/2020 Overview (08/23/2024): [facility]: Left knee pain: Discussed her knee pain was likely secondary to her osteoarthritis. I discussed the pathophysiology of Dykes? s cyst, which can occur as a result of underlying arthritis or degenerative meniscus tearing. Dykes? s cysts can wax and wane in size depending on activity level. Currently, there is no Dykes? s cyst to aspirate under ultrasound guidance. Left leg swelling: Advised she follow up with her primary care physician for further evaluation of her unilateral leg swelling. Discussed symptoms may be related to lymphedema versus lipedema, although this is generally bilateral, or venous insufficiency. Plan:Recommend she follow up with Dr. Mark regarding her knee arthritis. If she experiences recurrence of pain and swelling in the back of the knee, I would be happy to see her back for ultrasound-guided Dykes? s cyst aspiration. However, I did explain to her that this would not remove the cyst permanently as it is just a symptomatic treatment. Follow up as needed. 04/25/20 Eval at [facility] for L knee pain. X-rays normal. Given oxycodone and referred to [facility]. 05/23/20 Eval at [facility]. Dx Left knee medial compartment OA and patellofemoral pain. Given cortisone injection and referred to PT. Anemia 01/12/2019 Lupus (systemic lupus erythematosus) ([facility]) 0 03/31/2016 Overview (03/09/2024): 05/10/19 Eval at [facility], Dr Mark. Continue hydroxychloroquine 400 mg daily. 11/08/20 Eval at [facility], Dr Mark. Recommends lab work and f/u in 2 weeks. Plan to restart hydroxychloroquine once labs are back. 01/21/21 F/u [facility]. Start hydroxycholorquine. Check lupus labs, check for antipholipids 09/23/21 F/u [facility]. Check labs. Continue hydroxychloroquine 400 mg QD after labs are back. Get annual eye exam. F/u 3 months. 11/24/21 [facility]; no macular damage, may continue Plaquenil. F/u 6 months. 06/23/22 F/u [facility]. Continue Hydroxychloroquine. Referred to PM for tx fibromyalgia and to PT for knee arthritis. She self-d/c'd Eliquis, which she was taking for 2 DVTs. Needs f/u with PCP and cardiology regarding need for ongoing Eliquis. If not on Eliquis, consider starting meloxicam. 05/18/23 F/u [facility]. Non-compliance with hydroxychloroquine; advised to restart and recheck SLE markers. 08/19/22 F/u [facility]. Symptoms improved with improved compliance of hydroxychloroquine. Check labs, get eye exam. F/u 3 months 02/01/24 F/u [facility]. Recommends labs, continue hydroxychloroquine 200 mg 2 tabs daily; needs to f/u with ophthalmology re: visual field testing. 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 Plan to follow up within three months of new machine start or sooner for concerns. Cpap S/P JENNIFER-BSO 03/31/2016 Overview (11/18/2020): CT abd/pelvis w/ contrast 02/13/19 at [facility] shows slight interval increase in the size of the dominant anterior intramural fibroid and in the overall size of the enlarged fibroid uterus. Admitted to [facility] 10/14/20-10/17/20 . JENNIFER/BSO 10/14/20 Dr Bello at [facility] due to fibroids. Post-operative course complicated by hypercarbic respiratory failure, pt admitted to ICU. Recommended sleep study as outpatient. Resolved Problems Problem Noted Date Diagnosed Date Resolved Date Acquired hypothyroidism 07/31/2022 03/0 01/2024 Pneumonia 12/02/2020 07/31/2022 Overview (12/02/2020): [facility] ED 09/10/20. COVID testing negative. Tx for atypical pneumonia with doxycycline and prednisone. Acute respiratory failure wi th hypoxia and hypercarbia ([facility]) 11/18/2020 07/31/2022 Overview (11/18/2020): Admitted to [facility] 10/14/20-10/17/20 . JENNIFER/BSO 10/14/20 Dr Bello at [facility] due to fibroids. Post-operative course complicated by hypercarbic respiratory failure, pt admitted to ICU. Recommended sleep study as outpatient. Encounters Date Type Department Care Team Description 09/21/2024 4:30 PM EST BH/MH Visits [address] [phone] Monika Camacho, LEIF Current mild episode of major depressive disorder without prior episode ([facility]CC-CMS) (Primary Dx); Anxiety; Panic attacks 08/09/2024 4:00 PM EST BH/MH Visits [address] [phone] Monika Camacho, ADVERTISING WRITER Current mild episode of major depressive disorder without prior episode (HCC-CMS) (Primary Dx); Anxiety; Panic attacks 08/09/2024 Travel 07/18/2024 Interim Notes [address] [phone] Pebbles Moran MA 07/14/2024 10:00 AM EST Office Visit [address] [phone] Zoey Bragg NP Encounter for screening and preventative care (Primary Dx); Type 2 diabetes mellitus with other circulatory complications ([facility]); Chronic pain of left knee; Type 2 diabetes mellitus without complication, without long-term current use of insulin ([facility]); Class 3 severe obesity due to excess calories with serious comorbidity and body mass index (BMI) of 45.0 to 49.9 in adult ([facility]); Primary osteoarthritis of left knee; Current mild episode of major depressive disorder without prior episode ([facility]CC-[facility]); Sleep apnea, unspecified type; Panic attacks; Anxiety; Acute deep vein thrombosis (DVT) of femoral vein of left lower extremity ([facility]); Systemic lupus erythematosus, unspecified SLE type, unspecified organ involvement status ([facility]CC-CMS); Immunization due; Encounter for screening mammogram for malignant neoplasm of breast 07/14/2024 Interim Notes [address] [phone] Pebbles Moran MA 07/14/2024 Interim Notes [address] [phone] Pebbles Moran MA 07/14/2024 Interim Notes [address] [phone] Pebbles Moran MA 07/14/2024 Interim Notes [address] [phone] Pebbles Moran MA 07/14/2024 Travel from Last 3 Months Immunizations Name Administration Dates Next Due Flu, Preservative Free 06/01/2023,05/13/2022, Hep B, Adult/Adol (ENERGIX/RECOMBIVAX) 1,06/16/2000 Hep B,adult,adjuvanted (HEPLISAV) 10/07/2023 INFLUENZA, SEASONAL, INJECTABLE 05/13/20,04/25/2020,05/15/2016,06/17,09/05/2012 INFLUENZA, SEASONAL, INJECTA BLE, PRESERVATIVE FREE 06/04/2014 Influenza (FLUBLOK),recombinant,injectable,prese rvative Free 05/02/2024 Moderna COVID-19 Vaccine, re d cap blue label, 12+ Primary Series 05/13/2022 PFIZER COVID VACCINE, PURPLE CAP, 12+ 03/25/2021 PNEUMOCOCCAL CONJUGATE PCV 2 0 (Prevnar) 07/14/2024 PNEUMOCOCCAL POLYSACCHARIDE PPV23 02/10/2007 Pfizer COVID-19 (Comirnaty), Mrna, Lnp-s, Pf, Daron-sucrose, 30 Mcg/0.3 Ml, 12yr+ 10/07/2023 Pfizer-BioNTech COVID-19 Vac cine Bivalent, ([place]ON PFIZER-BIONTECH COVID-19 VACCINE BIVALENT, ([place]ON CAP 07/31/2022 TDAP 06/01/2023,01/13/2013 Family History Medical History Relation Name Comments No Known Problems Brother Heart Problems Father High Cholesterol Father Hypertension Father Heart Problems Mother Other (See Comments) Mother Vertigo Cancer Sister Uterine CA Relation Name Status Comments Brother Alive Daughter Alive Father Alive Mother Alive Sister Alive Son Alive Social History Tobacco Use Types Packs/Day Years Used Date Smoking Tobacco: Former Cigarettes Smokeless Tobacco: Former Tobacco Cessation:Counseling Given: Not Answered Comments:Occassional use of cigs on stressful days Alcohol Use Standard Drinks/Week Comments Yes 1 (1 standard drink = 0.6 oz pur e alcohol) Socially Social Connections Answer Date Recorded Connectedness 0 02/23/2023 Financial Resource Strain Answer Date R ecorded Financial Resource Strain 0 2022 Stress Answer Date Recorded Stress 0 02/23/2023 Physical Activity Answer Date Recorded Physical Activity 0 03/21/2019 Food Insecurity Answer Date Recorded Food 0 02/23/2023 Transportation Needs Answer Date Record ed Transportation 0 02/23/2023 Housing Stability Answer Date Recorded Housing 0 02/23/2023 Safety and Environment Answer Date Keanu rded Safety 1 10/07/2023 Utilities Answer Date Recorded Utilities 0 02/23/2023 Employment Answer Date Recorded Stress 0 10/20/2021 Comments No Sex and Gender Information Value Date Recorded Sex Assigned at Female 01/02/2019 9:50 AM PDT Legal Sex Female 12:35 PM PDT Gender Identity Female 01/02/2019 9:50 AM PDT Sexual Orientation Straight 05/07/2022 4: 31 PM PDT Last Filed Vital Signs Vital Sign Reading Time Taken Comments Blood Pressure 112/80 07/14/2024 10:23 AM EST Pulse 83 07/14/2024 10:23 AM EST Temperature 36.5 ??C (97.7 ??F) 07/14/2024 1 0:23 AM EST Respiratory Rate 16 07/14/2024 10:2 3 AM EST Oxygen Saturation 97% 07/14/2024 10: 23 AM EST Inhaled Oxygen Concentration - - Weight 115.4 kg (254 lb 6.4 oz) 024 10:23 AM EST Height 157.5 cm (5' 2 ) 07/14/2024 10:2 3 AM EST Body Mass Index 46.53 07/14/2024 10:23 AM EST Plan of Treatment Upcoming Encounters Date Type Department Care Team (Late st Contact Info) Description 10/06/2024 4:30 PM EST BH/MH Visits [facility] [address] [place] [phone] Monika Camacho FNP [address] [place] [phone] 10/18/2024 8:40 AM EDT Office Visit [facility] [address] [place] [phone] Zoey Bragg NP [address] [place] [address] 10/31/2024 8:40 AM EDT Office Visit [facility] [address] [place] [phone] Boo Hubbard MD [address] [place] [address] Health Maintenance Due Date Last Done Comments Dental Examination 1980 HPV Screening 1980 Pap + HPV 1980 Pap Smear 2001 Breast Cancer Screening (Mammogram) 2020 [id number] ( season) 2024 10/07/2023, 07/31/2022, 05/13/2022, Additional history exists Alcohol and Drug Screen 08/02/2024 02/24/20 24, 07/31/2022, 03/25/2021, Additional history exists Depression Monitoring 08/30/2024 05/30/2024 , 12/29/2023, 09/09/2023, Additional history exists Retinopathy Screening 09/03/2024 09/03/2023 , 09/03/2023, 09/03/2023 (Managed by Outside Provider) Lipid Screening 10/06/2024 10/07/2023, 07/04, 01/02/2019 Relationship Safety Screening/Counseling 10/06/2024 10/07/2023, 07/31/2022, 01/13/2021 Diabetes HbA1c 01/12/2025 07/14/2024, 01/31, 10/07/2023, Additional history exists Diabetes Foot Exam 02/23/2025 02/24/2024 Diabetes Microalbumin (w/Creatinine) 02/23/2025 02/24/2024 Serum Creatinine 02/23/2025 02/24/2024, 01/2024, 07/31/2022, Additional history exists TSH Monitoring 02/23/2025 02/24/2024, 03/0 01/2024, 10/07/2023, Additional history exists Hypertension Screening (#1) 07/14/2025 Medicare Annual Wellness Visit 07/14/2025 07/14/2024 Tobacco Screening 07/14/2025 07/14/2024 Imm-DTaP/Tdap/Td (3 - Td or Tdap) 06/01/2033 023, 01/13/2013 HIV Screening Completed 07/31/2022 Hepatitis C Screening Completed 07/31/2022 Imm-Hepatitis B Completed 10/07/2023, 08/03, 06/16/2000 Imm-Influenza Completed 05/02/2024, 05/04, 05/13/2022, Additional history exists Imm-Pneumococcal Completed 07/14/2024, 02/10/2007 Cervical Ablation/Cold-Knife Conization Discontinued Cervical Cancer Screening Discontinued Cervical Cryotherapy Discontinued Colposcopy Discontinued Endometrial Biopsy Discontinued Excision/Leep Discontinued HPV Genotyping Discontinued Vaginal Pap Discontinued Vulvoscopy Discontinued Procedures Procedure Name Priority Date/Time Associated Diagnosis Comments REFERRAL SCANNED DOCUMENT 09/05/2024 3:00 AM EST HEALTH HISTORY SCANNED DOCUMENT 09/01/2024 3:00 AM EST REFERRAL SCANNED DOCUMENT 08/16/2024 3:00 AM EST REFERRAL TO ORTHOPEDICS Routine 08/15/2024 3:00 AM EST Primary osteoarthritis of left knee Popliteal cyst, left HEMOGLOBIN GLYCOSYLATED A1C Routine 07/14/2024 11:51 AM EST Type 2 diabetes mellitus with other circulatory complications (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) MICROALBUMIN/CREATIN INE RATIO, URINE, RANDOM Routine 02/24/2024 11:38 AM EDT Type 2 diabetes mellitus with other circulatory complications ([facility]) LIPID PANEL Routine 10/07/2023 2:12 PM EST Acquired hypothyroidism Class 3 severe obesity due to excess calories with serious comorbidity and body mass index (BMI) of 50.0 to 59.9 in adult (HCC-CMS) Anemia, unspecified type Elevated LFTs EYE EXAM 09/03/2023 3:00 AM EST HIV 1/2 AG & AB W/RFLX (4TH GEN) Routine 07/31/2022 3:56 PM EST Exposure to potential infection HEPATITIS C AB W/RFLX HCV RNA, QT, RT PCR Routine 07/31/2022 3:56 PM EST Exposure to potential infection from Last 3 Months or Most Recently Relevant to Health Maintenance Results * REFERRAL SCANNED DOCUMENT (09/05/2024 3:00 AM EST) Only the most recent of2 resultswithin the time period is included. 09/05/2024 3:00 AM EST Sangeeta Pearce ADVERTISING WRITER SCAN REFERRAL Final Res ult * HEALTH HISTORY SCANNED DOCUMENT (09/01/2024 3:00 AM EST) 09/01/2024 3:00 AM EST [facility] Provider Default SCAN OTHER ORDERS Final Re sult * REFERRAL TO ORTHOPEDICS (08/15/2024 3:00 AM EST) 08/15/2024 3:00 AM EST Abhijit Bowman ADVERTISING WRITER REFERRAL Edited Resul t - Final * (ABNORMAL) HEMOGLOBIN GLYCOSYLATED A1C (07/14/2024 11:51 AM EST) HEMOGLOBIN A1C 6.0(H) <5.7 % of total Hgb [facility] Comment: For someone without known diabetes, a hemoglobin A1c value between 5.7% and 6.4% is consistent with prediabetes and should be confirmed with a follow-up test. For someone with known diabetes, a value <7% indicates that their diabetes is well controlled. A1c targets should be individualized based on duration of diabetes, age, comorbid conditions, and other considerations. This assay result is consistent with an increased risk of diabetes. Currently, no consensus exists regarding use of hemoglobin A1c for diagnosis of diabetes for children. Blood Blood / Unknown 07/14/2024 1 1:51 AM EST 07/14/2024 11:52 AM EST Zoey Bragg AUDITING CLERK LAB - BLOOD DRAW Final Result Performing Organization Address [facility] de Phone [place] [address], [employer] [address] [address] * THYROID CASCADING REFLEX PANEL (02/24/2024 11:38 AM EDT) Pathologist [facility] TSH 0.62 0.40 - 4.50 mIU/L [facility] Comment: ?Reference Range ?> or = 20 Years ??0.40-4.50 ? Ranges ?First trimester ?0.26-2.66 ?Second trimester ?? 0.55-2.73 ?Third trimester ?0.43-2.91 Blood Blood / Unknown 02/24/2024 1 1:38 AM EDT 02/24/2024 11:38 AM EDT Narrative y prime [facility] - 02/25/2024 4:21 PM EDT FASTING:YES Sangeeta Pearce ADVERTISING WRITER LAB - BLOOD DRAW Edited R esult - Final Performing Organization Address [facility] Co de Phone Number [employer] [address] [address], [employer] [address] [address] * MICROALBUMIN/CREATININE RATIO, URINE, RANDOM (02/24/2024 11:38 AM EDT) CREATININE, RANDOM URINE 177 20 - 275 mg/dL [facility] MICROALBUMIN 0.5 mg/dL [facility] Comment: Reference Range Not established MICROALBUMIN/CREA TININE RATIO, RANDOM URINE 3 <30 mg/g creat [facility] Comment: The ADA defines abnormalities in albumin excretion as follows: Albuminuria Category ?Result (mg/g creatinine) Normal to Mildly increased ?? <30 Moderately increased ? 30-299 Severely increased ? > OR = 300 The ADA recommends that at least two of three specimens collected within a 3-6 month period be abnormal before considering a patient to be within a diagnostic category. Urine Urine specimen / Unknown 02/24/2024 11:38 AM EDT 02/24/2024 11:38 AM EDT Narrative [facility] - 02/25/2024 4:21 PM EDT FASTING:YES Sangeeta Pearce ADVERTISING WRITER LAB - NO BLOOD DRAW Final Result [facility] [address] [place] [address], [facility] [address] [place] [phone] * (ABNORMAL) BASIC METABOLIC PANEL CALCIUM TOTAL (02/24/2024 11:38 AM EDT) Pathologist [facility] GLUCOSE 155(H) 65 - 99 mg/dL [facility] Comment: ?Fasting reference interval For someone without known diabetes, a glucose value >125 mg/dL indicates that they may have diabetes and this should be confirmed with a follow-up test. UREA NITROGEN (BUN) 14 7 - 25 mg/dL [facility] CREATININE (blood) 0.79 0.50 - 0.99 mg/dL [facility] EGFR 95 > OR = 60 mL/min/1. 73m2 [facility] BUN/CREATININE RATIO SEE NOTE: [employer] Comment: ?? Not Reported: BUN and Creatinine are within ?? reference range. ? SODIUM 137 135 - 146 mmol/L [facility] POTASSIUM 4.2 3.5 - 5.3 mmol/L [employer] [facility] CHLORIDE 103 98 - 110 mmol/L [employer] [facility] CARBON DIOXIDE 25 20 - 32 mmol/L [employer] [facility] CALCIUM 9.6 8.6 - 10.2 mg/dL [employer] [facility] Blood Blood / Unknown 02/24/2024 1 1:38 AM EDT 02/24/2024 11:38 AM EDT Narrative y prime [facility] - 02/25/2024 4:21 PM EDT FASTING:YES us SteffanyTeresa Pearce ADVERTISING WRITER LAB - BLOOD DRAW Edited R esult - Final y prime [facility] [address] [address], [facility] [address] [address] * (ABNORMAL) LIPID PANEL (10/07/2023 2:12 PM EST) [facility] CHOLESTEROL, TOTAL 276(H) <200 mg/dL [employer] [facility] HDL CHOLESTEROL 59 > OR = 50 mg/dL [employer] [facility] TRIGLYCERIDES 269(H) <150 mg/dL [employer] [facility] Comment: If a non-fasting specimen was collected, consider repeat triglyceride testing on a fasting specimen if clinically indicated. Sina et al. J. of Clin. Lipidol. 2015;9:129-169. LDL-CHOLESTEROL 173(H) 99 mg/dL (calc) [facility] Comment: Reference range: <100 Desirable range <100 mg/dL for primary prevention; ?? <70 mg/dL for patients with CHD or diabetic patients with > or = 2 CHD risk factors. LDL-C is now calculated using the Ho-Syd calculation, which is a validated novel method providing better accuracy than the Friedewald equation in the estimation of LDL-C. Ho SS et al. VITALIY. 2013;310(19): 9335-6871 (http://education.Dashwire/faq/JYR565) CHOL/HDLC RATIO 4.7 <5.0 (calc) [facility] NON-HDL CHOLESTEROL 217(H) <130 mg/dL (calc) [facility] Comment: For patients with diabetes plus 1 major ASCVD risk factor, treating to a non-HDL-C goal of <100 mg/dL (LDL-C of <70 mg/dL) is considered a therapeutic option. Blood Blood / Unknown 10/07/2023 2 :12 PM EST 10/07/2023 2:12 PM EST Narrative [facility] - 10/08/2023 1:41 PM EST FASTING:UNKNOWN Sangeeta Pearce [facility] LAB - BLOOD DRAW Final Re sult [employer] [address] [address], [employer] [address] [address] * EYE EXAM (09/03/2023 3:00 AM EST) 09/03/2023 3:00 AM EST Sangeeta Pearce [facility] OTHER Final Res ult * HEPATITIS C AB W/RFLX HCV RNA, QT, RT PCR (07/31/2022 3:56 PM EST) HEPATITIS C ANTIBODY NON-REACT MODESTO NON-REACT MODESTO [employer] [facility] SIGNAL TO CUT-OFF <0.02 <1.00 [facility] Comment: HCV antibody was non-reactive. There is no laboratory evidence of HCV infection. In most cases, no further action is required. However, if recent HCV exposure is suspected, a test for HCV RNA (test code 04400) is suggested. For additional information please refer to http://education.TheRouteBox/faq/IDY84q9 (This link is being provided for informational/ educational purposes only.) Blood Blood / Unknown 07/31/2022 3 :56 PM EST 07/31/2022 3:57 PM EST Narrative y prime [facility] - 08/01/2022 2:07 AM EST FASTING:NO Philip Saldana MD LAB - BLOOD DRAW Edited Resu lt - Final Performing Organization Address [facility]/ZIP Co de Phone Number [employer] [address] [address], [employer] [address] ([facility]) [place] [address] * HIV 1/2 AG & AB W/RFLX (4TH GEN) (07/31/2022 3:56 PM EST) HIV AG/AB, 4TH GEN NON-REAC TIVE NON-REAC TIVE [employer] [facility] Comment: HIV-1 antigen and HIV-1/HIV-2 antibodies were not detected. There is no laboratory evidence of HIV infection. PLEASE NOTE: This information has been disclosed to you from records whose confidentiality may be protected by state law. ??If your state requires such protection, then the state law prohibits you from making any further disclosure of the information without the specific written consent of the person to whom it pertains, or as otherwise permitted by law. A general authorization for the release of medical or other information is NOT sufficient for this purpose. ?? For additional information please refer to http://education.TheRouteBox/faq/EGY311 (This link is being provided for informational/ educational purposes only.) The performance of this assay has not been clinically validated in patients less than 2 years old. Blood Blood / Unknown 07/31/2022 3 :56 PM EST 07/31/2022 3:57 PM EST Narrative y prime [facility] - 08/01/2022 2:07 AM EST FASTING:NO Philip Saldana MD LAB - BLOOD DRAW Final Resul t Performing Organization Address [facility] Co de Phone Number [employer] [address] [address], [employer] [address] ([facility]) [place] [address] from Last 3 Months or Most Recently Relevant to Health Maintenance [place] Care Teams Attendant Campground Relationship Specialty Start Date End Date Zoey Bragg NP [facility] [place] [address] PCP - General Family Medicine, AUDITING CLERK 06/07/24
--- OUTSIDE RECORDS SUMMARY | 2024-09-27 09:25 | XMS_ITS | Encounter Summary ---
Author Organization [facility] Address [address] [place] [address] Care Team Providers Care Roll Forming Machine Set Up Mechanic Name Role Phone Janna De Paz Primary Care Provider [phone] Encounter Details Date Type Department Care Team (Late st Contact Info) Description 05/30/2024 10:30 AM EDT Hospital Encounter TH HISTORIC ENCOUNTERS EASTERN CONVERSION ONLY Saul Daniels, STIVEN [address] [place] [phone] Social History Tobacco Use Types Packs/Day Years [...] with HEP PT STG (4 visits) General Ruthann Bullock, PT Note: Pt will demonstrate compliance with HEP Pt will report decreased pain level to < 5/10 at worst Pt will increase lumbar AROM to 75% without pain Pt will increase hip ABD MMT to 3/5 Pt will increase hip extension MMT to 3-/5 PT LTG (8 visits) General Ruthann Bullock, PT Note: Pt will demonstrate independence with HEP Pt will report decreased pain level to < 2/10 at worst Pt will demonstrate full pain-free lumbar AROM Pt will increase hip MMT to at least 3+/5 Pt will report increased standing and walking tolerance to ad lily documented as of this encounter Visit Diagnoses Not on filedocumented in this encounter Care Teams Roll Forming Machine Set Up Mechanic Relationship Specialty Start Date End Date Janna De Paz PA [facility] [place] [address] PCP - General Internal Medicine 05/12/19 documented as of this encounter
--- OUTSIDE RECORDS SUMMARY | 2024-09-27 09:25 | XMS_ITS | Encounter Summary ---
Author Organization [facility] Address [address] [place] [address] Care Team Providers Care Reproduction Machine Loader Name Role Phone Janna De Paz Primary Care Provider [phone] Encounter Details Date Type Department Care Team (Latest Contact Info) Description 09/01/2024 Plan of Care Documentation [address] [phone] Social History Tobacco Use Types Packs/Day Years [...] of this encounter Progress Notes * Ruthann Johnson, PT - 09/01/2024 2:40 PM EST [facility] - Outpatient PHYSICAL THERAPY EVALUATION Date: 09/01/2024 Visit Number: 7 Patient Name: Isabel Morton : 1980 Age: 44 y.o. Gender: female Diagnosis: ICD-10-CM ICD-9-CM 1. Low back pain M54.50 724.2 Ambulatory referral to Physical Therapy and Athletic Training 2. Myofascial pain M79.18 729.1 Ambulatory referral to Physical Therapy and Athletic Training 3. Chronic bilateral low back pain without sciatica M54.50 724.2 G89.29 338.29 Date of Onset/Surgery: 09/01/2024 Referring Provider: Philip Saldana MD Insurance: Payor: MEDICARE / Plan: MEDICARE PART A & B / Product Type: Medicare / Patient identified by: Ruthann Johnson PT Language: Speaks and understands Maltese as preferred language with no translator/interpreter required Chart Reviewed: Yes Medications: Current Outpatient [...] (01/31/2007), Renal calculi, and Systemic lupus erythematosus ([facility]/HCC) (03/07/2007). has a past surgical history that [...] and/or participation restrictions Documentation completed by Ruthann Johnson, PT [address] [address] Dept: [phone] Dept PATIENT NAME: Isabel Morton : 1980 [...] on filedocumented in this encounter Care Teams Reproduction Machine Loader Relationship Specialty Start Date End Date Janna De Paz PA [address] [place] [address] PCP - General Internal Medicine 05/12/19 documented as of this encounter
--- OUTSIDE RECORDS SUMMARY | 2024-09-27 09:25 | XMS_ITS | Encounter Summary ---
Author Organization [facility] Address [address] [place] [address] Care Team Providers Care Warp Starter Name Role Phone Zoey Bragg NP Primary Care Provider [phone] Reason for Visit * Reason Comments Behavioral Health Problem Encounter Details Date Type Department Care Team ([facility] st Contact Info) Description 09/21/2024 4:30 PM EST / Visits [facility] [address] [place] [phone] Monika Camacho FNP [address] [place] [phone] Current mild episode of major depressive disorder without prior episode (HCC-CMS) (Primary Dx); Anxiety; Panic attacks Social History Tobacco Use Types Packs/Day Years [...] Orientation Straight 05/07/2022 4: 31 PM PDT documented as of this encounter Progress Notes * LEIF Hernandez - 09/21/2024 4:55 PM EST Subjective The following visit was conducted via Audio only. I educated the patient/guardian on the terms of telehealth and the patient verbally consented to this telemedicine visit. The patient was identified using their Name, and [facility] ID. I identified myself as LIEF HERNANDEZ from [facility]. It was conducted in a private space to protect HIPPA sensitive information. Precautions were taken to provide confidentiality and security and patient was made aware of privacy considerations. The patients location was obtained and is [facility] home The patient/guardian was notified that the services were being provided from [facility] Location. The patient/guardian was notified how they can see a clinician in-person in the event of an emergency or if otherwise needed. Visit START TIME 4.30 pm END TIME 5 pm Supervisor Particleboard used during visit? No HPI Isabel Morton is a 44 year old female s being seen at the clinic for a follow-up appointment who has a history, and is being treated for depression and anxiety. Depression The patient reported experiencing mood has been stable Anxiety - The patient reported experiencing severe symptoms in the form of excessive worrying. 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 Sleep - The patient reported average sleep sleeping 6-7 hours a night. Panic attacks-Occasional once a week Stressors -As above Appetite - The patient reported a normal appetite Manic symptoms The patient denies any manic symptoms in the form of racing thoughts, mood swings, increased energy, reckless behavior, or less need for sleep. The patient reports being compliant with medications. The Patient reports a good, response to medications. The patient denies side effects and desires toremain on current medications and consider increasing dose. The patient stated depression 1/10 and anxiety 9/10 on a scale of 1-10. 1 being none and 10 being the worst. Current Outpatient Medications Medication Sig Dispense Refill ??? sertraline (ZOLOFT) 25 mg tablet Take 2 Tablets by mouth once daily for 180 days 60 Tablet 5 ??? metFORMIN (GLUCOPHAGE) 1,000 mg tablet TAKE 1 TABLET BY MOUTH TWICE A DAY WITH A MEAL 180 Tablet 1 ??? blood sugar diagnostic (FREESTYLE TEST) strips Check FBS daily E11.65. Freestyle Lite 100 Each 11 ??? diclofenac sodium (VOLTAREN) 1 % gel Apply topically 2 (two) times daily 100 g 3 ??? lancets Check FBS daily E11.65. Freestyle Lite 100 Each 11 ??? levothyroxine 300 mcg tablet TAKE 1 TABLET BY MOUTH EVERY DAY 90 Tablet 0 ??? celecoxib (CELEBREX) 100 mg capsule Take 1 Capsule by mouth 2 (two) times daily 60 Capsule 2 ??? compress.stocking,knee,reg,med Cmopresion stockings 20-30 mmHg; lifetime need. Wear daily as needed for leg swelling; Ht 5'2 Wt 265 lb 2 Each 2 ??? semaglutide (OZEMPIC) 0.25 mg or 0.5 mg (2 mg/3 mL) pen injector Inject 0.25 mg into the skin once a week for 28 days, THEN 0.5 mg once a week for 28 days. 3 mL 5 ??? simvastatin (ZOCOR) 20 mg tablet Take 1 Tablet by mouth nightly at bedtime 90 Tablet 1 ??? melatonin 10 mg cap Take 1 Capsule by mouth nightly at bedtime as needed (insomnia) 90 Capsule 1 ??? alcohol swabs Check FBS daily E11.65. 100 Each 11 ??? blood-glucose meter monitoring kit Check FBS daily E11.65. Freestyle Lite 1 Each 0 ??? budesonide (PULMICORT FLEXHALER) 180 mcg/actuation inhaler Inhale 1 Puff into the lungs 2 (two)times daily 3 Each 1 ??? albuterol HFA 90 mcg/actuation inhaler Inhale 2 Puffs into the lungs every 4 (four) hours as needed for shortness of breath 18 g 5 ??? hydrOXYchloroQUINE (PLAQUENIL) 200 mg tablet Take 400 mg by mouth once daily ??? tim Cooper, See Instructions, # 1 each, Refills 0, Tot. Refills 0, Maintenance, DX: Acute Left femoral DVT, leg pain, unstable gait Height:157 cm, Weight: 125.6 Kg , 11/15/20 12:01:00 EDT,Supply ??? miscellaneous medical supply misc by miscellaneous route once daily Shower chair. 3 month need.Dx: post-operative status, h/o hysterectomy 1 Each 0 No current facility-administered medications for this visit. Safety Assessment (Suicide/Homicidal Risk) Feels like hurting self DENIES Violence Risk: No Active Intent, No Plan Feels like hurting others DENIES Suicidal Risk: No Active SI, No Plan Emotion/Mood Calm Coping (Observed Emotional State) Cooperative Speech Clear, coherent Orientation WNL and Oriented to all domains Thought Processes WNL Hallucinations Denies hallucinations Delusions No delusions Review of Systems- As noted Objective Couldn't be done as this was done over the phone There were no vitals filed for this visit. Estimated body mass index is 46.53 kg/m?? as calculated from the following: Height as of 07/14/24: 5' 2 (1.575 m). Weight as of 07/14/24: 254 lb 6.4 oz (115.4 kg). No height and weight on file for this encounter. Physical Exam Couldn't be done as this was done over the phone Assessment and Plan 1. Current mild episode of major depressive disorder without prior episode ([facility]) (Primary) - sertraline (ZOLOFT) 25 mg tablet; Take 2 Tablets by mouth once daily for 180 days Dispense: 60 Tablet; Refill: 5 2. Anxiety - sertraline (ZOLOFT) 25 mg tablet; Take 2 Tablets by mouth once daily for 180 days Dispense: 60 Tablet; Refill: 5 3. Panic attacks - sertraline (ZOLOFT) 25 mg tablet; Take 2 Tablets by mouth once daily for 180 days Dispense: 60 Tablet; Refill: 5 - Increase dose to Sertraline 50 mg - F/U 6 Weeks documented in this encounter Plan of Treatment Upcoming Encounters Date Type Department Care Team (Late st Contact Info) Description 10/06/2024 4:30 PM EST BH/MH Visits [facility] [address] [place] [address] Monika Camcaho, TRASH COLLECTOR [address] [place] [address] 10/18/2024 8:40 AM EDT Office Visit [address] [phone] Zoey Bragg NP [address] [place] [address] 10/31/2024 8:40 AM EDT Office Visit [address] [phone] [place] [address] [place] [address] documented as of this encounter Visit Diagnoses Diagnosis Current mild episode of major depressive disorder without prior episode ([facility])- Primary Anxiety Anxiety state, unspecified Panic attacks Panic disorder without agoraphobia documented in this encounter Additional Health Concerns Assessment Noted Time PHQ-9 Depression Total Score: 8 05/30/20 24 2:45 PM PDT documented as of this encounter Care Teams Warp Starter Relationship Specialty Start Date End Date Zoey Bragg NP [address] [place] [address] PCP - General Family Medicine, LUBRICATION SERVICER 06/07/24 documented as of this encounter
--- OUTSIDE RECORDS SUMMARY | 2024-09-27 09:25 | XMS_ITS | Encounter Summary ---
Author Organization [facility] Address [address] [place] [address] Care Team Providers Care Director Oracle Name Role Phone Janna De Paz Primary Care Provider [phone] Reason for Visit * Consultation (Routine) - Authorized Specialty Diagnoses / Procedures Referred By Contac t Referred To Contact Physical Therapy Diagnoses Low back pain Myofascial pain Philip Saldana MD [address] [place] [address] Phone: tel: fax: [address] [address] Phone: tel: fax: Referral ID Status Reason Start Date Expiration Date Visits Requested Visits Authorized [id number] Authorized Specialty Services Required 08/24/2024 08/24/2025 8 8 Encounter Details Date Type Department Care Team (Late st Contact Info) Description 09/13/2024 8:00 AM EST Treatment [facility] [address] [address] Parth Toledo, FISH PACKER Chronic bilateral low back pain without sciatica [...] Progress Notes * Parth Toledo PTA - 09/13/2024 8:00 AM EST [facility] - Outpatient PHYSICAL THERAPY DAILY TREATMENT NOTE - OP Date: 09/13/2024 Visit Number: 4 Patient Name: Isabel Morton : 1980 Age: 44 y.o. Gender: female Diagnosis: ICD-10-CM ICD-9-CM 1. Chronic bilateral low back pain without sciatica M54.50 724.2 G89.29 338.29 Date of Onset/Surgery: 09/01/2024 Referring Provider: Philip Saldana MD Insurance: Payor: MEDICARE / Plan: MEDICARE PART A & B / Product Type: Medicare / Patient Identified by: Parth Toledo PTA Language: Croatian Medications: Current Outpatient Medications on File Prior [...] knee Chart Reviewed: Yes Pain Lower back 10 OBJECTIVE TREATMENT INTERVENTION: Nu step x 5 min Hamstring and hip flexor stretch 3 x 20 sec hold each (B) Standing hip ext/abd/marching x 15 each (B) orange tband LTR x 3 with 20 sec hold (B) 8 inch step ups x 15 Bridging x20 H/L with red tball on abdomen UE press down x 15 with 5 sec hold Lumbar support taping with kinesiotape ASSESSMENT/Response to Treatment Good tape care discussed with pt Patient Education: Education provided: Yes Education Provided [...] Patient-Stated? Author LTG - 8 visits General Joann Mallory PT Note: 05/30/2024 11:38 AM - Active [...] Primary documented in this encounter Care Teams Director Oracle Relationship Specialty Start Date End Date Janna De Paz PA [address] [place] [address] PCP - General Internal Medicine 05/12/19 documented as of this encounter
--- OUTSIDE RECORDS SUMMARY | 2024-09-27 09:25 | XMS_ITS | Encounter Summary ---
Author Organization [facility] Address [address] [place] [address] Care Team Providers Care Conversion Man Name Role Phone Janna De Paz Primary Care Provider [phone] Reason for Visit * Consultation (Routine) - Closed Specialty Diagnoses / Procedures Referred By Contac t Referred To Contact Physical Therapy Diagnoses Left knee pain, unspecified chronicity Philip Saldana MD [address] [place] [address] Phone: tel: fax: [facility] [address] [address] Phone: tel: fax: Referral ID Status Reason Start Date Expiration Date V isits Requested Visits Authorized [id number] Closed Specialty Services Required 07/11/2024 07/11/2025 16 8 Encounter Details Date Type Department Care Team (Late st Contact Info) Description 09/11/2024 7:30 AM EST Treatment [facility] [address] [address] Oscar Ashraf, CISCO CERTIFIED INTERNETWORK EXPERT Chronic bilateral low back pain without sciatica [...] Progress Notes * Oscar Ashraf PTA - 09/11/2024 7:30 AM EST [facility] - Outpatient PHYSICAL THERAPY DAILY TREATMENT NOTE - OP Date: 09/11/2024 Visit Number: 9 Patient Name: Isabel Morton : 1980 Age: 44 y.o. Gender: female Diagnosis: ICD-10-CM ICD-9-CM 1. Chronic bilateral low back pain without sciatica M54.50 724.2 G89.29 338.29 Date of Onset/Surgery: 09/01/2024 Referring Provider: Philip Saldana MD Insurance: Payor: MEDICARE / Plan: MEDICARE PART A & B / Product Type: Medicare / Patient Identified by: Oscar Ashraf PTA Language: Amharic Medications: Current Outpatient Medications on File Prior [...] back Chart Reviewed: Yes Pain Lower back 02/08 TREATMENT INTERVENTION: Nu step x 5 min Hamstring and hip flexor stretch 3 x 20 sec hold each (B) Standing hip ext/abd/marching x 20 each (B) LTR x 3 with 20 sec hold (B) 6 inch step ups 2 x10 ea Bridging x20 ASSESSMENT/Response to Treatment Fair - easily fatigues with exercises Patient Education: Education provided: Yes Education Provided [...] Primary documented in this encounter Care Teams Conversion Man Relationship Specialty [place] [address] [place] [phone] PCP - General Internal Medicine 05/12/19 documented as of this encounter
== END 2024-09-27 09:43 | disposition home or self-care (01) ==
PROVIDERS: PCP Nurse Practitioner; Visit Provider Internal Medicine Rheumatology
DX: M32.9 Systemic lupus erythematosus, unspecified (principal); Z79.899 Other long term (current) drug therapy; M17.12 Unilateral primary osteoarthritis, left knee
CPT/HCPCS: 20610; 99214

== ENCOUNTER 2024-09-27 08:43 | Outpatient (REF) | payer MEDICARE, MEDICAID, SELFPAY ==
--- OUTSIDE RECORDS SUMMARY | 2024-09-27 11:25 | XMS_ITS | Encounter Summary ---
Author Organization [facility] Address [address] [place] [address] Care Team Providers Care Corn Detasseler Name Role Phone Janna De Paz Primary Care Provider [phone] Reason for Visit * Consultation (Routine) - Authorized Specialty Diagnoses / Procedures Referred By Contac t Referred To Contact Physical Therapy Diagnoses Low back pain Myofascial pain Philip Saldana MD [address] [place] [address] Phone: tel: fax: [address] [address] Phone: tel: fax: Referral ID Status Reason Start Date Expiration Date Visits Requested Visits Authorized [id number] Authorized Specialty Services Required 08/24/2024 08/24/2025 8 8 Encounter Details Date Type Department Care Team (Late st Contact Info) Description 09/25/2024 7:30 AM EST Treatment [facility] [address] [address] Oscar Ashraf, INFECTION CONTROL COORDINATOR Chronic bilateral low back pain without sciatica [...] Ashraf PTA - 09/25/2024 7:30 AM EST [facility] - Outpatient PHYSICAL THERAPY DAILY TREATMENT [...] Patient Identified by: Oscar Ashraf PTA Language: Cymro Medications: Current Outpatient Medications on File Prior [...] Primary documented in this encounter Care Teams Corn Detasseler Relationship Specialty Start Date End Date Janna De Paz PA [address] [place] [phone] PCP - General Internal Medicine 05/12/19 documented as of this encounter
--- OUTSIDE RECORDS SUMMARY | 2024-09-27 11:25 | XMS_ITS | Encounter Summary ---
Author Organization [facility] Address [address] [place] [address] Care Team Providers Care Complaint Clerk Name Role Phone Janna De Paz Primary Care Provider [phone] Reason for Visit * Consultation (Routine) - Authorized Specialty Diagnoses / Procedures Referred By Contac t Referred To Contact Physical Therapy Diagnoses Low back pain Myofascial pain Philip Saldana MD [address] [place] [address] Phone: tel: fax: [address] [address] Phone: tel: fax: Referral ID Status Reason Start Date Expiration Date Visits Requested Visits Authorized [id number] Authorized Specialty Services Required 08/24/2024 08/24/2025 8 8 Encounter Details Date Type Department Care Team (Late st Contact Info) Description 09/27/2024 7:30 AM EST Treatment [facility] [address] [address] Ruthann Johnson PT Chronic bilateral [...] Progress Notes * Ruthann Johnson, PT - 09/27/2024 7:30 AM EST [facility] - Outpatient PHYSICAL THERAPY DAILY TREATMENT NOTE - OP Date: 09/27/2024 Visit Number: 6 Patient Name: Isabel Morton : 1980 Age: 44 y.o. Gender: female Diagnosis: ICD-10-CM ICD-9-CM 1. Chronic bilateral low back pain without sciatica M54.50 724.2 G89.29 338.29 Date of Onset/Surgery: 09/01/2024 Referring Provider: Philip Saldana MD Insurance: Payor: MEDICARE / Plan: MEDICARE PART A & B / Product Type: Medicare / Patient Identified by: Ruthann Johnson, PT Language: Egyptian Medications: Current Outpatient Medications on File Prior [...] risk: No Patient/Caregiver Goals: SUBJECTIVE Subjective Report: Pt reported that her back pain is still about the same as when she began therapy. Pt reported that she is doing her exercises at home but doesn't get relief from them. Chart Reviewed: Yes Pain Lower back 02/08 OBJECTIVE TREATMENT INTERVENTION: Nu step, load 4, BLE, x 5 minutes Standing hamstring and hip flexor stretch 3 x 15 sec hold each (B) Standing resisted bilateral shoulder extension with TAC, green TB, 10 x 5 seconds Seated hip flexor/quadriceps stretch, 3 x 15 seconds (B) SKTC, 3 x 15 seconds (B) LTR, x 10 Lumbar AROM: Flexion: 25% +pain Extension: 25% +pain SB L: 25% +pain SB R: 50% +pain Rot L: 50% +pain Rot R: 50% +pain Hip MMT: ABD: 3-/5 L, 3+/5 R Extension: 2+/5 L, 3-/5 R ASSESSMENT/Response to Treatment Fair Pt tolerated therapy session with c/o slight increased pain during therex and re-evaluation. Pt has not demonstrated any significant improvement since initial evaluation. Pt is agreeable to discharge on this date and will follow-up with PCP to discuss future POC. Short-term goals: Pt will demonstrate compliance with HEP - MET Pt will report decreased pain level to < 5/10 at worst -NOT MET Pt will increase lumbar AROM to 75% without pain - NOT MET Pt will increase hip ABD MMT to 3/5 - NOT MET Pt will increase hip extension MMT to 3-/5 - NOT MET Patient Education: Education provided: Yes Education Provided To: Patient utilizing Explanation mode(s) of education Response to Education: Verbal Understanding PLAN POC Development/Review: Changes in the Plan of Care; Participants: Patient Total Treatment Time: 25 Modalities: Therapeutic procedures: Therapeutic Exercise Time Entry: 25 Documentation completed by Ruthann Johnson PT documented in this encounter Plan of Treatment [...] Primary documented in this encounter Care Teams Complaint Clerk Relationship Specialty Start Date End Date Janna De Paz PA [address] [place] [phone] PCP - General Internal Medicine 05/12/19 documented as of this encounter
--- OUTSIDE RECORDS SUMMARY | 2024-09-27 11:25 | XMS_ITS | Clinical Summary ---
Author Organization [facility] Address [address] [place] [address] Phone Care Team Providers Care Salesperson Women'S Hats Name Role Phone Janna De Paz Primary Care Provider [phone] Allergies Active Allergy Reactions Criticality Noted Date [...] Team Description 09/27/2024 7:30 AM EST Treatment [facility] [address] [phone] Ruthann Johnson, PT Chronic bilateral low back pain without sciatica (Primary Dx) 09/25/2024 7:30 AM EST Treatment [facility] [address] [phone] Oscar Ashraf, IT NETWORK ENGINEER Chronic bilateral low back pain without sciatica (Primary Dx) 09/13/2024 8:00 AM EST Treatment [facility] [address] [phone] Parth Toledo, IT NETWORK ENGINEER Chronic bilateral low back pain without sciatica (Primary Dx) 09/11/2024 7:30 AM EST Treatment [facility] [address] [phone] Oscar Ashraf, IT NETWORK ENGINEER Chronic bilateral low back pain without sciatica (Primary Dx) 09/05/2024 7:30 AM EST Treatment [facility] [address] [phone] Parth Toledo, IT NETWORK ENGINEER Myofascial pain (Primary Dx) 09/01/2024 7:30 AM EST Evaluation [facility] [address] [phone] Ruthann Johnson, PT Low back pain (Primary Dx); Myofascial pain; Chronic bilateral low back pain without sciatica 09/01/2024 Plan of Care Documentation [facility] [address] [phone] 08/23/2024 8:30 AM EST Treatment [address] [phone] Joann Johnson, PT Left knee pain, unspecified chronicity (Primary Dx) 08/15/2024 8:30 AM EST Consult Orthopedic Surgery [facility] 160 175 [facility] [address] [place] [address] Ina Chavarria MD Popliteal cyst, left 08/10/2024 7:30 AM EST Treatment [address] [address] Oscar Ashraf, IT NETWORK ENGINEER Left knee pain, unspecified chronicity (Primary Dx) 08/03/2024 7:30 AM EST Treatment [address] [phone] Oscar Ashraf, IT NETWORK ENGINEER Left knee pain, unspecified chronicity (Primary Dx) 07/25/2024 7:30 AM EST Treatment [address] [address] Parth Toledo, IT NETWORK ENGINEER Left knee pain, unspecified chronicity (Primary Dx) 07/20/2024 7:30 AM EST Treatment [address] [phone] Oscar Ashraf, IT NETWORK ENGINEER Left knee pain, unspecified chronicity (Primary Dx) 07/17/2024 7:30 AM EST Treatment [address] [address] Moskal, Joann, PT Left knee pain, unspecified chronicity from Last 3 Months Immunizations Name Administration Dates Next Due Hepatitis B (Eqtmkju-C-Tnlkj , Recombivax HB-Adult) 19yo and older 08/24/2000 [...] Patient is independent and compliant with HEP Procedures Procedure Name Priority Date/Time Associated Diagnosis Comments URINE ALBUMIN CREATININE RATIO Routine 02/17/2012 HIV SCREENING Routine 02/01/2012 HEPATITIS C SCREENING Routine 07/15/2011 ANNUAL BMP BLOOD TEST Routine 07/17/2010 from Last 3 Months or Most Recently Relevant to Health Maintenance Results * Urine Albumin Creatinine Ratio (02/17/2012) [facility] Urine Albumin Creatinine Ratio Abstracted [facility] Provider HEALTH MAINTENANCE Final Result * HIV Screening (02/01/2012) [facility] HIV Screening Abstracted [facility] Provider HEALTH MAINTENANCE Final Result * Hepatitis C Screening (07/15/2011) [facility] Hepatitis C Screening Abstracted Result [facility] Provider HEALTH MAINTENANCE Final Result * Annual BMP Blood Test (07/17/2010) [facility] Annual BMP Blood Test Abstracted [facility] Provider HEALTH MAINTENANCE Final Result from Last 3 Months or Most Recently Relevant to Health Maintenance Insurance MEDICARE MEDICAID - [place] Care Teams Salesperson Women'S Hats Relationship Specialty Start Date End Date Janna De Paz PA [facility] [place] [phone] PCP - General Internal Medicine 05/12/19
--- OUTSIDE RECORDS SUMMARY | 2024-09-27 11:25 | XMS_ITS | Encounter Summary ---
Author Organization [facility] Address [address] [place] [address] Care Team Providers Care Business Team Leader Name Role Phone Janna De Paz Primary Care Provider [phone] Reason for Visit * Consultation (Routine) - Closed Specialty Diagnoses / Procedures Referred By Contac t Referred To Contact Physical Therapy Diagnoses Left knee pain, unspecified chronicity Philip Saldana MD [address] [place] [address] Phone: tel: fax: [facility] [address] [address] Phone: tel: fax: Referral ID Status Reason Start Date Expiration Date V isits Requested Visits Authorized [id number] Closed Specialty Services Required 07/11/2024 07/11/2025 16 8 Encounter Details Date Type Department Care Team (Late st Contact Info) Description 09/11/2024 7:30 AM EST Treatment [facility] [address] [phone] Oscar Ashraf, 3RD MATE Chronic bilateral low back pain without sciatica [...] Ashraf PTA - 09/11/2024 7:30 AM EST [facility] - Outpatient PHYSICAL THERAPY DAILY TREATMENT NOTE [...] Patient Identified by: Oscar Ashraf PTA Language: French Medications: Current Outpatient Medications on File Prior [...] Primary documented in this encounter Care Teams Business Team Leader Relationship Specialty Start Date End Date Janna De Paz PA [address] [place] [address] PCP - General Internal Medicine 05/12/19 documented as of this encounter
--- OUTSIDE RECORDS SUMMARY | 2024-09-27 11:25 | XMS_ITS | Encounter Summary ---
Author Organization [facility] Address [address] [place] [address] Care Team Providers Care Vp Transportation Name Role Phone Zoey Bragg NP Primary Care Provider [phone] Reason for Visit * Reason Comments Case Management SACHIN Assessment Encounter Details Date Type Department Care Team ([facility] st Contact Info) Description 11/15/2020 Interim Notes [address] [phone] Sangeeta Mccray, RN [address] [place] [address] Social History Tobacco Use Types Packs/Day Years [...] Description 10/06/2024 4:30 PM EST / Visits [address] [phone] Monika Camacho, SET UP MECHANIC CROWN ASSEMBLY MACHINE [address] [place] [phone] 10/18/2024 8:40 AM EDT Office Visit [address] [phone] Zoey Bragg NP [address] [place] [address] 10/31/2024 8:40 AM EDT Office Visit [address] [phone] Boo Hubbard MD [address] [place] [address] documented as of this encounter Visit Diagnoses Not on filedocumented in this encounter Additional Health Concerns Infection Onset Date Last Indicated Resolved Time COVID-19 (rule-out) Comment:Added automatically based on ordered lab. 01/03/2021 01/03/2021 01/08/2021 10:45 AM PDT Assessment Noted Time PHQ-9 Depression Total Score: 0 10/08/19 21 1:42 PM PST documented as of this encounter Care Teams Vp Transportation Relationship Specialty Start Date End Date Zoey Bragg NP [address] [place] [address] PCP - General Family Medicine, TECHNICAL ILLUSTRATOR 06/07/24 documented as of this encounter
--- OUTSIDE RECORDS SUMMARY | 2024-09-27 11:26 | XMS_ITS | Encounter Summary ---
Author Organization [facility] Address [address] [place] [address] Care Team Providers Care Print Color Matcher Name Role Phone Janna De Paz Primary Care Provider [phone] Encounter Details Date Type Department Care Team (Latest Contact Info) Description 09/01/2024 Plan of Care Documentation [address] [phone] Social History Tobacco Use Types Packs/Day Years [...] Johnson, PT - 09/01/2024 2:40 PM EST [facility] - Outpatient PHYSICAL THERAPY [...] Ruthann Johnson PT Language: Speaks and understands Wolof as preferred language with no hatchery worker required Chart Reviewed: Yes Medications: Current Outpatient [...] (01/31/2007), Renal calculi, and Systemic lupus erythematosus ([facility]/HCC) (03/07/2007). has a past surgical history that [...] restrictions Documentation completed by Ruthann Johnson, PT [address] [address] Dept: [phone] Dept PATIENT NAME: Isabel Morton : 1980 [...] on filedocumented in this encounter Care Teams Print Color Matcher Relationship Specialty Start Date End Date Janna De Paz PA [address] [place] [phone] PCP - General Internal Medicine 05/12/19 documented as of this encounter
--- OUTSIDE RECORDS SUMMARY | 2024-09-27 11:26 | XMS_ITS | Encounter Summary ---
Author Organization [facility] Address [address] [place] [address] Care Team Providers Care Metal Ceiling Hanger Name Role Phone Zoey Bragg NP Primary Care Provider [phone] Reason for Visit * Reason Comments Behavioral Health Problem Encounter Details Date Type Department Care Team ([facility] st Contact Info) Description 09/21/2024 4:30 PM EST / Visits [facility] [address] [place] [phone] Monika Camacho FNP [address] [place] [phone] Current mild episode of major depressive disorder [...] and [facility] ID. I identified myself as LEIF HERNANDEZ from [facility]. It was conducted in a private space to protect HIPPA sensitive information. Precautions were taken to provide confidentiality and security and patient was made aware of privacy considerations. The patients location was obtained and is [facility] home The patient/guardian was notified that the services were being provided from [facility] Location. The patient/guardian was notified how they can see a clinician in-person in the event of an emergency or if otherwise needed. Visit START TIME 4.30 pm END TIME 5 pm Engineering Technician Parking used during visit? No HPI Isabel Morton [...] of major depressive disorder without prior episode ([facility]) (Primary) - sertraline (ZOLOFT) 25 mg [...] 10/06/2024 4:30 PM EST BH/MH Visits [facility] [address] [place] [address] Monika Camacho, DISPLAY FABRICATION SUPERVISOR [address] [place] [address] 10/18/2024 8:40 AM EDT Office Visit [address] [phone] Zoey Bragg NP [address] [place] [address] 10/31/2024 8:40 AM EDT Office Visit [address] [phone] [place] [address] [place] [address] documented as of this encounter Visit Diagnoses Diagnosis Current mild episode of major depressive disorder without prior episode ([facility])- Primary Anxiety Anxiety state, unspecified Panic attacks Panic disorder without agoraphobia documented in this encounter Additional Health Concerns Assessment Noted Time PHQ-9 Depression Total Score: 8 05/30/20 24 2:45 PM PDT documented as of this encounter Care Teams Metal Ceiling Hanger Relationship Specialty Start Date End Date Zoey Bragg NP [address] [place] [address] PCP - General Family Medicine, TEXTILES PRINTER 06/07/24 documented as of this encounter
--- OUTSIDE RECORDS SUMMARY | 2024-09-27 11:26 | XMS_ITS | Encounter Summary ---
Author Organization [facility] Address [address] [place] [address] Care Team Providers Care Nurse Coordinator Name Role Phone Janna De Paz Primary Care Provider [phone] Reason for Visit * Consultation (Routine) - Authorized Specialty Diagnoses / Procedures Referred By Contac t Referred To Contact Physical Therapy Diagnoses Low back pain Myofascial pain Philip Saldana MD [address] [place] [address] Phone: tel: fax: [address] [address] Phone: tel: fax: Referral ID Status Reason Start Date Expiration Date Visits Requested Visits Authorized [id number] Authorized Specialty Services Required 08/24/2024 08/24/2025 8 8 Encounter Details Date Type Department Care Team (Latest Contact Info) Description 09/01/2024 7:30 AM EST [facility] [address] [phone] Ruthann Johnson PT Low back [...] Johnson PT - 09/01/2024 7:30 AM EST [facility] - Outpatient PHYSICAL THERAPY EVALUATION Date: [...] Ruthann Johnson PT Language: Speaks and understands Croatian as preferred language with no translator and interpreter required Chart Reviewed: Yes Medications: Current [...] restrictions Documentation completed by Ruthann Johnson PT [address] [address] Dept: [phone] Dept PATIENT NAME: Isabel Morton : 1980 [...] Orders Outpatient Referral Count Last Ordered Date Fir st Ordered Date AMB REFERRAL TO [facility] 1 09/01/2024 documented in this encounter Care Teams Nurse Coordinator Relationship Specialty Start Date End Date Janna De Paz PA [address] [place] [address] PCP - General Internal Medicine 05/12/19 documented as of this encounter
--- OUTSIDE RECORDS SUMMARY | 2024-09-27 11:26 | XMS_ITS | Encounter Summary ---
Author Organization [facility] Address [address] [place] [address] Care Team Providers Care Puddler Helper Name Role Phone Janna De Paz Primary Care Provider [phone] Reason for Visit * Consultation (Routine) - Closed Specialty Diagnoses / Procedures Referred By Contac t Referred To Contact Physical Therapy Diagnoses Left knee pain, unspecified chronicity Philip Saldana MD [address] [place] [address] Phone: tel: fax: [facility] [address] [address] Phone: tel: fax: Referral ID Status Reason Start Date Expiration Date V isits Requested Visits Authorized [id number] Closed Specialty Services Required 07/11/2024 07/11/2025 16 8 Encounter Details Date Type Department Care Team (Late st Contact Info) Description 09/05/2024 7:30 AM EST Treatment [facility] [address] [address] Parth Toledo, LINDEN Myofascial pain [...] Toledo PTA - 09/05/2024 7:30 AM EST [facility] - Outpatient PHYSICAL THERAPY DAILY TREATMENT [...] Patient Identified by: Parth Toledo PTA Language: Spanish Medications: Current Outpatient Medications on File Prior [...] myositis documented in this encounter Care Teams Puddler Helper Relationship Specialty Start Date End Date Janna De Paz PA [address] [place] [phone] PCP - General Internal Medicine 05/12/19 documented as of this encounter
--- OUTSIDE RECORDS SUMMARY | 2024-09-27 11:26 | XMS_ITS | Clinical Summary ---
Author Organization [facility] Address [address] [place] [address] Care Team Providers Care Supervisor Melt House Name Role Phone Yemi Messifloresita STIVEN Primary Care Provider [phone] Source Comments PLEASE NOTE, if this patient [...] complication, without long-term current use of insulin ([facility]) Check FBS daily E11.65. Freestyle Lite 1 Each 024 Active alcohol swabsIndications :Type 2 diabetes mellitus without complication, without long-term current use of insulin ([facility]) Check FBS daily E11.65. 100 Each 11 024 Active melatonin 10 mg capIndications:I nsomnia, unspecified type Take 1 Capsule by mouth nightly at bedtime as needed (insomnia) 90 Capsule 1 024 Active simvastatin (ZOCOR) 20 mg tabletIndication s:Type 2 diabetes mellitus with other circulatory complications ([facility]) Take 1 Tablet by mouth nightly at bedtime 90 Tablet 1 Active semaglutide (OZEMPIC) 0.25 mg or 0.5 mg (2 mg/3 mL) pen injectorIndicati ons:Type 2 diabetes mellitus with other circulatory complications ([facility]),Class 3 severe obesity due to excess calories with serious comorbidity and body mass index (BMI) of 45.0 to 49.9 in adult ([facility]) Inject 0.25 mg into the skin once a week for 28 days, THEN 0.5 mg once a week for 28 days. 3 mL 5 Active compress.stockin g,knee,reg,medIn dications:Type 2 diabetes mellitus with other circulatory complications ([facility]) Cmopresion stockings 20-30 mmHg; lifetime need. [...] nuclear stress test 08/27/2024 Overview (08/27/2024): 08/18/24 [facility] Cardiology Assessment/Plan 1. Abnormal stress test Although [...] exam 03/08/2024 Overview (03/08/2024): Eye exam 09/03/23 [facility]. Melasma 01/18/2024 Overview (01/18/2024): 01/10/24 Eval at [facility] Dermatology. Recommends hydroquinone 4% cream BID, f/u 6 months. Panic attacks 11/25/2023 Shingles 11/25/2023 Overview (11/25/2023): Dx in ED 10/24/23 Type 2 diabetes mellitus wit hout complication, without long-term current use of insulin ([facility]) 10/12/2023 Financial difficulties 02/23/2023 Current episode of major dep ressive disorder without prior episode 05/22/2021 Anxiety 05/22/2021 Shortness of breath 03/25/2021 Overview (08/27/2024): 08/18/24: f/u [facility] Pulmonary Assessment/Plan 1. Dyspnea on exertion 2. [...] PGY 3 Dr. Arango Echocardiogram 01/22/21 at [facility] shows 1. This is a technically difficult [...] Pulm valve not well visualized. 02/25/21 Eval [facility] Pul. SOB on exertion, likely due to deconditioning, bedbound, weight gain. ? Of asthma due to hx seasonal allergies and eczema. Lupus pneumonitis less likely. Obtain PFT. If negative will obtain methacholine challenge test. Trial Flovent 110 2 puff BID and albuterol as needed. Recommend weight loss. F/u 6 months. 11/19/23 Eval at [facility] Pul. Dyspnea is likely multifactoral. Recommends full PFTs, stress test with echo. Exercise, compliance with CPAP for DIANNA. Consider Symbicort in the future. 03/03/24 F/u [facility] Pul; Dyspnea likely multifactoral. Recommend exercise, weight [...] of femoral vein of left lower extremity ([facility]) 11/18/2020 Overview (02/10/2021): 11/13/20-11/15/20 admitted to [facility] for Acute DVT of Left femoral vein. [...] (BMI) of 45.0 to 49.9 in adult ([facility]) 10/07/2020 Primary osteoarthritis of left knee 05/06/2020 Overview (08/23/2024): [facility] Orthopedics: Left knee pain: Discussed her knee [...] Follow up as needed. 04/25/20 Eval at [facility] for L knee pain. X-rays normal. Given oxycodone and referred to [facility]. 05/23/20 Eval at [facility]. Dx Left knee medial compartment OA and patellofemoral pain. Given cortisone injection and referred to PT. Anemia 01/12/2019 Lupus (systemic lupus erythematosus) ([facility]) 0 03/31/2016 Overview (03/09/2024): 05/10/19 Eval at [facility], Dr Mark. Continue hydroxychloroquine 400 mg daily. 11/08/20 Eval at [facility], Dr Mark. Recommends lab work and f/u [...] thyroiditis Sleep apnea 03/31/2016 Overview (09/09/2024): 09/05/24: [facility]: DIANNA-order placed for new machine. Plan to follow up within three months of new machine start or sooner for concerns. Cpap S/P JENNIFER-BSO 03/31/2016 Overview (11/18/2020): CT abd/pelvis w/ contrast 02/13/19 at [facility] shows slight interval increase in the size of the dominant anterior intramural fibroid and in the overall size of the enlarged fibroid uterus. Admitted to [facility] 10/14/20-10/17/20 . JENNIFER/BSO 10/14/20 Dr Bello at [facility] due to fibroids. Post-operative course complicated by hypercarbic respiratory failure, pt admitted to ICU. Recommended sleep study as outpatient. Resolved Problems Problem Noted Date Diagnosed Date Resolved Date Acquired hypothyroidism 07/31/2022 03/0 01/2024 Pneumonia 12/02/2020 07/31/2022 Overview (12/02/2020): [facility] ED 09/10/20. COVID testing negative. Tx for atypical pneumonia with doxycycline and prednisone. Acute respiratory failure wi th hypoxia and hypercarbia ([facility]) 11/18/2020 07/31/2022 Overview (11/18/2020): Admitted to [facility] 10/14/20-10/17/20 . JENNIFER/BSO 10/14/20 Dr Bello at [facility] due to fibroids. Post-operative course complicated by hypercarbic respiratory failure, pt admitted to ICU. Recommended sleep study as outpatient. Encounters Date Type Department Care Team Description 09/21/2024 4:30 PM EST BH/MH Visits [address] [phone] Monika Camacho, LEIF Current mild episode of major depressive disorder without prior episode (HCC-CMS) (Primary Dx); Anxiety; Panic attacks 08/09/2024 4:00 PM EST BH/MH Visits [address] [phone] Monika Camacho, SUPERVISORY HISTORIAN Current mild episode of major depressive disorder without prior episode (HCC-CMS) (Primary Dx); Anxiety; Panic attacks 08/09/2024 Travel 07/18/2024 Interim Notes [address] [phone] Pebbles Moran MA 07/14/2024 10:00 AM EST Office Visit [address] [phone] Zoey Bragg NP Encounter for screening and [...] malignant neoplasm of breast 07/14/2024 Interim Notes [address] [phone] Pebbles Moran MA 07/14/2024 Interim Notes [address] [phone] Pebbles Moran MA 07/14/2024 Interim Notes [address] [phone] Pebbles Moran MA 07/14/2024 Interim Notes [address] [phone] Pebbles Moran MA 07/14/2024 Travel [...] 10/06/2024 4:30 PM EST BH/MH Visits [facility] [address] [place] [address] Monika Camacho FNP [address] [place] [address] 10/18/2024 8:40 AM EDT Office Visit [facility] [address] [place] [address] Zoey Bragg NP [address] [place] [address] 10/31/2024 8:40 AM EDT Office Visit [facility] [address] [place] [address] Boo Hubbard MD [address] [place] [address] Health Maintenance Due Date Last Done Comments Dental Examination 1980 HPV Screening 1980 Pap + HPV 1980 Pap Smear 2001 Breast Cancer Screening (Mammogram) 2020 [id number] ( season) 2024 10/07/2023, 07/31/2022, 05/13/2022, Additional [...] 2 diabetes mellitus with other circulatory complications ([facility]) THYROID CASCADING REFLEX PANEL Routine 02/24/2024 11:38 AM EDT 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 09/05/2024 3:00 AM EST Sangeeta Pearce SUPERVISORY HISTORIAN SCAN REFERRAL Final Res ult * HEALTH HISTORY SCANNED DOCUMENT (09/01/2024 3:00 AM EST) 09/01/2024 3:00 AM EST [facility] Provider Default SCAN OTHER ORDERS Final Re sult * REFERRAL TO ORTHOPEDICS (08/15/2024 3:00 AM EST) 08/15/2024 3:00 AM EST Abhijit Bowman SUPERVISORY HISTORIAN REFERRAL Edited Resul t - Final * (ABNORMAL) HEMOGLOBIN GLYCOSYLATED A1C (07/14/2024 11:51 AM EST) HEMOGLOBIN A1C 6.0(H) <5.7 % of total Hgb [employer] Comment: For someone without known diabetes, a [...] EST 07/14/2024 11:52 AM EST Zoey Bragg ELEVATOR ATTENDANT LAB - BLOOD DRAW Final Result Performing Organization Address [facility] de [place] [address], [facility] [address] [address] * THYROID CASCADING REFLEX PANEL (02/24/2024 11:38 AM EDT) Pathologist [facility] TSH 0.62 0.40 - 4.50 mIU/L [facility] Comment: ?Reference Range ?> or = 20 Years ??0.40-4.50 ? Ranges ?First trimester ?0.26-2.66 ?Second trimester ?? 0.55-2.73 ?Third trimester ?0.43-2.91 Blood Blood / Unknown 02/24/2024 1 1:38 AM EDT 02/24/2024 11:38 AM EDT Narrative [employer] [facility] - 02/25/2024 4:21 PM EDT FASTING:YES Sangeeta Pearce SUPERVISORY HISTORIAN LAB - BLOOD DRAW Edited R esult - Final Performing Organization Address [facility] Co de Phone Number [place] [address] [address], [facility] [address] [address] * MICROALBUMIN/CREATININE RATIO, URINE, RANDOM (02/24/2024 11:38 AM EDT) CREATININE, RANDOM URINE 177 20 - 275 mg/dL [employer] MICROALBUMIN 0.5 mg/dL [facility] [employer] [facility] Comment: Reference Range Not established MICROALBUMIN/CREA TININE RATIO, RANDOM URINE 3 <30 mg/g creat [employer] Comment: The ADA defines abnormalities in albumin [...] AM EDT 02/24/2024 11:38 AM EDT Narrative [facility] - 02/25/2024 4:21 PM EDT FASTING:YES Sangeeta Pearce SUPERVISORY HISTORIAN LAB - NO BLOOD DRAW Final Result [facility] [address] [place] [address], [employer] [address] [place] [phone] * (ABNORMAL) BASIC METABOLIC PANEL CALCIUM TOTAL (02/24/2024 11:38 AM EDT) Pathologist [facility] GLUCOSE 155(H) 65 - 99 mg/dL [facility] Comment: ?Fasting reference interval For someone without known diabetes, a glucose value >125 mg/dL indicates that they may have diabetes and this should be confirmed with a follow-up test. UREA NITROGEN (BUN) 14 7 - 25 mg/dL [employer] CREATININE (blood) 0.79 0.50 - 0.99 mg/dL [employer] EGFR 95 > OR = 60 mL/min/1. 73m2 [employer] BUN/CREATININE RATIO SEE NOTE: [employer] Comment: ?? Not Reported: BUN and Creatinine are within ?? reference range. ? SODIUM 137 135 - 146 mmol/L [employer] POTASSIUM 4.2 3.5 - 5.3 mmol/L [facility] CHLORIDE 103 98 - 110 mmol/L [place] [facility] CARBON DIOXIDE 25 20 - 32 mmol/L [place] [facility] CALCIUM 9.6 8.6 - 10.2 mg/dL [place] [facility] Blood Blood / Unknown 02/24/2024 1 1:38 AM EDT 02/24/2024 11:38 AM EDT Narrative [facility] [facility] - 02/25/2024 4:21 PM EDT FASTING:YES us SteffanyTeresa Pearce SUPERVISORY HISTORIAN LAB - BLOOD DRAW Edited R esult - Final [facility] [facility] [address] [address], [facility] [address] [address] * (ABNORMAL) LIPID PANEL (10/07/2023 2:12 PM EST) [facility] CHOLESTEROL, TOTAL 276(H) <200 mg/dL [place] [facility] HDL CHOLESTEROL 59 > OR = 50 mg/dL [place] [facility] TRIGLYCERIDES 269(H) <150 mg/dL [place] [facility] Comment: If a non-fasting specimen was collected, consider repeat triglyceride testing on a fasting specimen if clinically indicated. Sina et al. J. of Clin. Lipidol. 2015;9:129-169. LDL-CHOLESTEROL 173(H) 99 mg/dL (calc) [facility] Comment: Reference range: <100 Desirable range <100 mg/dL for primary prevention; ?? <70 mg/dL for patients with CHD or diabetic patients with > or = 2 CHD risk factors. LDL-C is now calculated using the Ho-Syd calculation, which is a validated novel method providing better accuracy than the Friedewald equation in the estimation of LDL-C. Ho SS et al. VITALIY. 2013;310(19): 8056-0492 (http://education.[employer]/faq/BUS679) CHOL/HDLC RATIO 4.7 <5.0 (calc) [facility] NON-HDL CHOLESTEROL 217(H) <130 mg/dL (calc) [facility] Comment: For patients with diabetes plus 1 major ASCVD risk factor, treating to a non-HDL-C goal of <100 mg/dL (LDL-C of <70 mg/dL) is considered a therapeutic option. Blood Blood / Unknown 10/07/2023 2 :12 PM EST 10/07/2023 2:12 PM EST Narrative [facility] - 10/08/2023 1:41 PM EST FASTING:UNKNOWN Sangeeta Pearce [facility] LAB - BLOOD DRAW Final Re sult [place] [address] [address], [place] [address] [address] * EYE EXAM (09/03/2023 3:00 AM EST) 09/03/2023 3:00 AM EST Sangeeta Pearce [facility] OTHER Final Res ult * HEPATITIS C AB W/RFLX HCV RNA, QT, RT PCR (07/31/2022 3:56 PM EST) HEPATITIS C ANTIBODY NON-REACT MODESTO NON-REACT MODESTO [place] [facility] SIGNAL TO CUT-OFF <0.02 <1.00 [facility] Comment: HCV antibody was non-reactive. There is no laboratory evidence of HCV infection. In most cases, no further action is required. However, if recent HCV exposure is suspected, a test for HCV RNA (test code 02926) is suggested. For additional information please refer to http://education.[employer]faq/UAK00y0 (This link is being provided for informational/ educational purposes only.) Blood Blood / Unknown 07/31/2022 3 :56 PM EST 07/31/2022 3:57 PM EST Narrative [facility] [facility] - 08/01/2022 2:07 AM EST FASTING:NO Philip Saldana MD LAB - BLOOD DRAW Edited Resu lt - Final Performing Organization Address [facility]/ZIP Co de Phone Number [place] [address] [address], [facility] [address] ([facility] [place] [address] * HIV 1/2 AG & AB W/RFLX (4TH GEN) (07/31/2022 3:56 PM EST) HIV AG/AB, 4TH GEN NON-REAC TIVE NON-REAC TIVE [place] [facility] Comment: HIV-1 antigen and HIV-1/HIV-2 antibodies [...] ?? For additional information please refer to http://education.[employer]faq/UOJ477 (This link is being provided for informational/ educational purposes only.) The performance of this assay has not been clinically validated in patients less than 2 years old. Blood Blood / Unknown 07/31/2022 3 :56 PM EST 07/31/2022 3:57 PM EST Narrative [facility] - 08/01/2022 2:07 AM EST FASTING:NO Philip Saldana MD LAB - BLOOD DRAW Final Resul t Performing Organization Address [facility] Co de Phone Number [place] [address] [address], [facility] [address] ([facility]) [place] [address] from Last 3 Months or Most Recently Relevant to Health [place] Care Teams Supervisor Melt House Relationship Specialty Start Date End Date Zoey Bragg NP [facility] [place] [address] PCP - General Family Medicine, ELEVATOR ATTENDANT 06/07/24
--- OUTSIDE RECORDS SUMMARY | 2024-09-27 11:26 | XMS_ITS | Encounter Summary ---
Author Organization [employer] [facility] Address [address] [place] [address] Care Team Providers Care Chucking Lathe Operator Name Role Phone Janna De Paz Primary Care Provider [phone] Encounter Details Date Type Department Care Team (Late st Contact Info) Description 05/30/2024 10:30 AM EDT Hospital Encounter TH HISTORIC ENCOUNTERS [facility]ASTERN CONVERSION ONLY Saul Daniels, STIVEN [address] [place] [phone] Social History Tobacco Use Types Packs/Day Years [...] on filedocumented in this encounter Care Teams Chucking Lathe Operator Relationship Specialty Start Date End Date Janna De Paz PA [address] [place] [address] PCP - General Internal Medicine 05/12/19 documented as of this encounter
--- OUTSIDE RECORDS SUMMARY | 2024-09-27 11:26 | XMS_ITS | Encounter Summary ---
Author Organization [facility] Address [address] [place] [address] Care Team Providers Care Modeling Agent Name Role Phone Janna De Paz Primary Care Provider [phone] Reason for Visit * Consultation (Routine) - Authorized Specialty Diagnoses / Procedures Referred By Contac t Referred To Contact Physical Therapy Diagnoses Low back pain Myofascial pain Philip Saldana MD [address] [place] [address] Phone: tel: fax: [address] [address] Phone: tel: fax: Referral ID Status Reason Start Date Expiration Date Visits Requested Visits Authorized [id number] Authorized Specialty Services Required 08/24/2024 08/24/2025 8 8 Encounter Details Date Type Department Care Team (Late st Contact Info) Description 09/13/2024 8:00 AM EST Treatment [facility] [address] [address] Parth [place], FELT PAD CUTTER Chronic bilateral low back pain without sciatica [...] [place] PTA - 09/13/2024 8:00 AM EST [facility] - Outpatient PHYSICAL THERAPY DAILY [...] Patient Identified by: Parth [place] PTA Language: Haitian Medications: Current Outpatient Medications on File Prior [...] Primary documented in this encounter Care Teams Modeling Agent Relationship Specialty Start Date End Date Janna De Paz PA [address] [place] [phone] PCP - General Internal Medicine 05/12/19 documented as of this encounter
[2024-09-27 18:37] LABS: MANUAL DIFF FLAG NO
[2024-09-27 18:51] LABS: Appearance Urine Cloudy; Color Urine Yellow; Glucose Urine UA Negative (Negative); Leukocyte Esterase Urine Trace (Negative); Nitrite Urine Negative (Negative); PH 5.5 (5.0-9.0); Specific Gravity - Urine 1.025 (1.005-1.025); UMIC TRIGGER UA YES; Urine Blood Negative (Negative); Urine Ketones Negative (Negative); Urine Protein Trace mg/dL (Neg-Trace)
[2024-09-27 18:52] LABS: Basophils Percent Auto 0.2 % (0-2); Eosinophils Absolute Auto 0.1 X10*3/uL (0.0-0.4); Eosinophils Percent Auto 1.4 % (0-4); Hematocrit 42.2 % (37.0-47.0); Hemoglobin 13.8 g/dl (12.0-16.0); Imm Gran Abs Auto 0.04 X10*3/uL (0.00-0.03); Imm Gran Pct Auto 0.8 % (0.0-0.4); Lymphocytes Absolute Auto 1.5 X10*3/uL (1.2-4.9); Lymphocytes Percent Auto 29.2 % (20-40); Mean Corpuscular HGB Conc 32.7 g/dl (31.0-35.0); Mean Corpuscular Volume 85.6 fL (80.0-98.0); Mean Platelet Volume 10.8 fL (9.4-12.3); Monocytes Absolute Auto 0.5 X10*3/uL (0.1-1.2); Monocytes Percent Auto 9.3 % (2-11); Neutrophils Percent Auto 59.1 % (45-73); Platelet Count 285 X10*3/uL (160-400); Red Blood Count 4.93 X10*6/uL (4.20-5.50); Red Cell Distribution Width 15.7 % (11.0-16.0)
[2024-09-27 18:58] LABS: Bacteria Urine 2+ (None Seen); RBC Urine 0-2 /HPF (0-2)
[2024-09-27 19:08] LABS: Alanine Aminotransferase 28 U/L (0-31); Aspartate Amino Transferase 29 U/L (5-31); C Reactive Protein 0.37 mg/dL (< or = 0.50); Estimated Glomerular Filt Rate > 60
[2024-09-27 19:56] LABS: Erythrocyte Sedimentation Rate 36 MM/HR (0-20)
[2024-09-28 09:04] LABS: HBS Num1 1.29 mIU/mL (0-7.99); HBc Num1 0.09 S/CO (0.00-0.79); HBsAGNum1 0.29 S/CO (0.00-0.99); Hepatitis B Core Antibody Nonreactive (Nonreactive); Hepatitis B Surface Antigen Negative (Negative); ~HepC Num1 0.62 S/CO (0.00-0.79); ~Hepatitis B Surface Antibody NONREACTIVE (Nonreactive); ~Hepatitis C Antibody Nonreactive (Nonreactive)
[2024-09-28 10:24] LABS: Complement C3 178 mg/dL (83-193)
[2024-09-29 09:03] LABS: Anti DNA DS Antibody 2 IU/mL
[2024-09-30 01:34] LABS: TS Negative Control Passed; TS Panel A 0; TS Panel B 0; TS Positive Control Passed; TSpotTB Negative (Negative)
== END 2024-09-27 08:44 | disposition home or self-care (01) ==
LOC: HO.HKASLDS 08:43
PROVIDERS: PCP Nurse Practitioner; Visit Provider Internal Medicine Rheumatology
DX: M32.9 Systemic lupus erythematosus, unspecified (principal); Z79.899 Other long term (current) drug therapy; M17.12 Unilateral primary osteoarthritis, left knee; Z11.59 Encounter for screening for other viral diseases; Z72.89 Other problems related to lifestyle
CPT/HCPCS: 20610; 36415; 81001; 82565; 84450; 84460; 85025; 85652; 86140; 86160; 86225; 86481; 86704; 86706; 86803; 87340; 99212; J2003; J3300

== ENCOUNTER 2024-12-21 08:23 | Outpatient (REF) | payer MEDICARE, MEDICAID, SELFPAY ==
--- OUTSIDE RECORDS SUMMARY | 2024-12-21 09:42 | XMS_ITS | Encounter Summary ---
Author Organization [facility] Address [address] [place] [address] Care Team Providers Care Retail Store Assistant Name Role Phone Jarad Bragg NP Primary Care Provider Reason for Referral * Gynecology (Routine) - New Request Specialty Diagnoses / Procedures Referred By Vickie johnson Referred To Contact Obstetrics & Gynecology Diagnoses Cyst of left ovary Jarad Bragg NP [address] [place] [address] Phone: tel: fax: Referral ID Status Reason Start Date Expiration Date Visits Requested Visits Authorized [id number] New Request Continuity of Care 12/20/2024 12/20/2025 1 1 Comments Reason for Referral: CONTRACEPTION: N/A COUNSELING/TESTING: N/A EVALUATION/TREATMENT: Other Reproductive Complaints (Endometriosis, PCOS, Fibroids/Cysts/Polyps,etc) Comments/Additional Information:-Patient is 44 [address] female with CT scan performed on 12/15 showing -left ovarian cyst measuring up to 4.4cm. Pelvic ultrasound characterization suggestion. US order placed for further evaluation. Please eval * Urology (Routine) - New Request Specialty Diagnoses / Procedures Referred By Vickie johnson Referred To Contact Urology Diagnoses Flank pain Jarad Bragg NP [address] [place] [address] Phone: tel: fax: Referral ID Status Reason Start Date Expiration Date Visits Requested Visits Authorized [id number] New Request Specialty Services Required 12/20/2024 12/20/2025 1 1 Comments Patient is 44 year old female with history of kidney stones, and flank pain. CT scan performed on 12/15/24 showing -3mm nonobstructing bilateral renal calculi. Please eval and treat. * Vascular Surgery (Routine) - Pending Review Specialty Diagnoses / Procedures Referred By iVckie johnson Referred To Contact Vascular Surgery Diagnoses Left leg swelling Jarad Bragg NP [address] [place] [address] Phone: tel: fax: Services, [facility] [address] Phone: tel: fax: Referral ID Status Reason Start Date Expiration Date Visits Requested Visits Authorized [id number] Pending Review Specialty Services Required 12/05/2024 12/05/2025 1 1 Comments Patient is a 44 year old female with history of left lower leg edema for 9 months. Patient has had ultrasounds that was negative for DVT. Patient has tried conservative treatment of compression stockings for 6 months. Please eval and treat for possibly lymphedema vs lipedema * Radiology Services (Routine) - Closed Specialty Diagnoses / Procedures Referred By Vickie johnson Referred To Contact Diagnoses History of kidney stones Flank pain Procedures CT ABDOMEN & PELVIS W/O CONTRAST MATERIAL Jarad Bragg NP [address] [place] [address] Phone: tel: fax: Radiology, [facility] [address] [address] Phone: tel: fax: Referral ID Status Reason Start Date Expiration Date V isits Requested Visits Authorized [id number] Closed Continuity of Care 12/05/2024 02/03/2025 1 1 Encounter Details Date Type Department Care Team (Late st Contact Info) Description 12/05/2024 10:20 AM EDT [facility] Visit [facility] [address] [place] [address] Jarad Bragg NP [address] [place] [address] Left leg swelling (Primary Dx); History of kidney stones; Flank pain; Frequency of urination; Cyst of left ovary Social History Tobacco Use Types Packs/Day Years [...] PM PDT documented as of this encounter Last Filed Vital Signs Vital Sign Reading Time Taken Comments Blood Pressure 118/70 12/05/2024 10:16 AM EDT Pulse 100 12/05/2024 10:16 AM EDT Temperature 36.8 ??C (98.3 ??F) 12/05/2024 10:16 AM E DT Respiratory Rate 16 12/05/2024 10:16 AM EDT Oxygen Saturation 97% 12/05/2024 10:16 AM EDT Inhaled Oxygen Concentration - - Weight 110.7 kg (244 lb) 12/05/2024 10:16 AM EDT Height 157.5 cm (5' 2 ) 12/05/2024 10:16 AM EDT Body Mass Index 44.63 12/05/2024 10:16 AM EDT documented in this encounter Progress Notes * Jarad Bragg NP - 12/20/2024 9:05 AM EDTAddended by: JARAD BRAGG on: 12/20/2024 09:05 AM Modules accepted: Orders * Jarad Bragg NP - 12/05/2024 10:20 AM EDT SUBJECTIVE 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 Patient speaks Romanian HPI: Isabel Morton is a 44 year old female who presents to clinic today for follow up on leg swelling. Patient has had persistent swelling in the left leg for approximately 9 months, since March of the previous year. An ultrasound was performed in the ER to screen for a blood clot. The patient hasbeen using compression stockings for 5 to 6 months, primarily during the day when active, but has not noticed significant improvement in the swelling. The patient had consulted with an insurance sales specialist for meniscal tear who discussed potential surgical options after patients BMI is reduced down to less than 40. Patient complains of frequent urination, dysuria and radiating flank pain for thepast five days. She denies hematuria fevers, chills or vaginal odor and discharge. She reports history of kidney stones and past kidney infection and is concerned this can be similar symptoms. Past Medical History: Diagnosis Date ??? Acquired hypothyroidism 07/31/2022 ??? SLE (systemic lupus erythematosus related syndrome) ([facility]) Current Outpatient Medications Medication Sig Dispense Refill ??? nitrofurantoin, macrocrystal-monohydrate, (MACROBID) 100 mg capsule Take 1 Capsule by mouth 2 (two) times daily for 7 days 14 Capsule 0 ??? celecoxib (CELEBREX) 100 mg capsule TAKE 1 CAPSULE BY MOUTH TWICE A DAY 60 Capsule 2 ??? simvastatin (ZOCOR) 40 mg tablet Take 1 Tablet by mouth nightly at bedtime 90 Tablet 1 ??? semaglutide (OZEMPIC) 1 mg/dose (4 mg/3 mL) pen injector Inject 1 mg into the skin once a week 3 mL 3 ??? levothyroxine 300 mcg tablet TAKE 1 TABLET BY MOUTH EVERY DAY 90 Tablet 0 ??? sertraline (ZOLOFT) 25 mg tablet Take [...] E11.65. Freestyle Lite 100 Each 11 ??? compress.stocking,knee,reg,med Cmopresion stockings 20-30 mmHg; lifetime need. Wear daily as needed for leg swelling; Ht 5'2 Wt 265 lb 2 Each 2 ??? melatonin 10 mg cap Take 1 [...] mg by mouth once daily ??? tim Walker, See Instructions, # 1 each, Refills 0, Tot. Refills 0, Maintenance, DX: Acute Left femoral DVT, leg pain, unstable gait Height:157 cm, Weight: 125.6 Kg , 11/15/20 12:01:00 EDT,Supply ??? miscellaneous medical supply misc by miscellaneous route once daily Shower chair. 3 month need.Dx: post-operative status, h/o hysterectomy 1 Each 0 No current facility-administered medications for this visit. Review of Systems Constitutional: Negative for chills, diaphoresis, fatigue and fever. HENT: Negative for ear pain, hearing loss, sore throat, tinnitus and trouble swallowing. Eyes: Negative for photophobia, pain, redness and visual disturbance. Respiratory: Negative for apnea, cough, chest tightness and shortness of breath. Cardiovascular: Positive for leg swelling. Negative for chest pain and palpitations. Left leg swelling Gastrointestinal: Negative for abdominal pain, constipation, diarrhea, nausea and vomiting. Endocrine: Negative for polydipsia, polyphagia and polyuria. Genitourinary: Negative for dysuria, flank pain, frequency, hematuria and urgency. Musculoskeletal: Negative for arthralgias, back pain, gait problem and neck pain. Left knee pain Skin: Negative for rash and wound. Neurological: Negative for dizziness, syncope, weakness, numbness and headaches. Hematological: Does not bruise/bleed easily. Psychiatric/Behavioral: Negative for hallucinations, sleep disturbance and suicidal ideas. The patient is not nervous/anxious. OBJECTIVE Vitals reviewed Vitals: 12/05/24 1016 BP: 118/70 BP Site: Left Arm BP Position: Sitting BP Cuff Size: Large Adult Pulse: 100 Resp: 16 Temp: 98.3 ??F (36.8 ??C) SpO2: 97% Weight: 244 lb (110.7 kg) Height: 5' 2 (1.575 m) Estimated body mass index is 44.63 kg/m?? as calculated from the following: Height as of this encounter: 5' 2 (1.575 m). Weight as of this encounter: 244 lb (110.7 kg). The 10-year ASCVD risk score (Vasile ABRAHAM, et al., 2019) is: 1.2% Body mass index is 44.63 kg/m??. Lifestyle measures:BMI follow up plan: The patient was counseled regarding nutrition and physical activity. Depression screen: PHQ-9 Total Score (Auto Calculated) 8 at 05/30/2024 2:45 PM 05/30/2024 2:45 PM Did patient decline PHQ screening? No Little interest or pleasure in doing things Nearly every day Feeling down, depressed or hopeless [include irritable if under 18] Nearly every day PHQ2 Score (!) 6 Little interest or pleasure in doing things Nearly every day Feeling down, depressed or hopeless [include irritable if under 18] Nearly every day Trouble falling or staying asleep, or sleeping too much Several days Feeling tired or having little energy Several days Poor appetite or overeating Not at all Feeling bad about yourself - or that you are a failure or have let yourself or your family down Notat all Trouble concentrating on things, such as reading the newspaper or watching television? Not at all Moving or speaking so slowly that other people could have noticed? Or the opposite - being so fidgety or restless that you have been moving around a lot more than usual Not at all Thoughts you would be better off or of hurting yourself in some way Not at all If you checked off any problems, how difficult have these problems made it for you to do your work,take care of things at home, or get along with other people? Somewhat difficult PHQ-9 Total Score (Auto Calculated) 8 Depression Severity: Mild Depression screening:DEPRESSION FU PROVIDED ( CMS-2): Assessed, follow-up as needed Physical Exam Constitutional: General: She is not in acute distress. Appearance: Normal appearance. She is not ill-appearing. She has obesity HENT: Head: Normocephalic and atraumatic. Cardiovascular: Rate and Rhythm: Normal rate and regular rhythm. Heart sounds: Normal heart sounds. No murmur heard. Pulmonary: Effort: Pulmonary effort is normal. No respiratory distress. Breath sounds: Normal breath sounds. Abdominal: Tenderness: There is right CVA tenderness. There is no left CVA tenderness. Comments: R flank tenderness to palpation Musculoskeletal: Left lower le+ Edema present. Skin: General: Skin is warm. Neurological: General: No focal deficit present. Mental Status: She is alert. Psychiatric: Mood and Affect: Mood normal. ASSESSMENT & PLAN Isabel Morton is a 44 year old female patient, who was seen today for an acute visit. M79.89 Left leg swelling (primary encounter diagnosis) Plan : ??? REFERRAL TO VASCULAR SURGERY ??? Patient instructed to continue with compression stockings and elevation of legs at times Z87.442 History of kidney stones Plan : ? ? CT ABDOMEN & PELVIS W/O CONTRAST MATERIAL ??? URINALYSIS, MULTISTIX (POCT) R10.9 Flank pain Plan : ? ? CT ABDOMEN & PELVIS W/O CONTRAST MATERIAL ??? URINALYSIS, COMPLETE W/REFLEX TO CULTURE R35.0 Frequency of urination Plan : ??? URINALYSIS, COMPLETE W/REFLEX TO CULTURE Medications were reviewed in detail with the patient, who acknowledges understanding and agrees with the plan of care as discussed. Encouraged to follow up with any questions or concerns. Return in about 3 months (around 03/07/2025) for leg swelling. documented in this encounter Miscellaneous Notes * Patient Instructions - Jarad Bragg NP - 12/05/2024 11:03 AM EDT If you are not able to keep your appointment please call 24-48 hours before your appointment to cancel or reschedule. documented in this encounter Plan of Treatment Upcoming Encounters Date Type Department Care Team (Late st Contact Info) Description 01/12/2025 4:30 PM EDT / Visits [facility] [address] [place] [phone] Monika Camacho FNP [address] [place] [address] Scheduled Orders Name Type Priority Associated Diagnoses Orde r Schedule US PELVIC COMPLETE & TRANSVAG Imaging Routine Cyst of left ovary Ordered: 12/20/2024 Scheduled Referrals Name Type Priority Associated Diagnoses Orde r Schedule REFERRAL TO VASCULAR SURGERY Referral Routine Left leg swelling Ordered: 12/05/2024 REFERRAL TO UROLOGY Referral Routine Flank pain Ordered: 12/20/2024 INTERNAL REFERRAL FAMILY PLANNING Referral Routine Cyst of left ovary Ordered: 12/20/2024 documented as of this encounter Procedures Procedure Name Priority Date/Time Associated Diagnosis Comments CT ABDOMEN & PELVIS W/O CONTRAST MATERIAL Routine 12/15/2024 3:00 AM EDT History of kidney stones Flank pain URINALYSIS, MULTISTIX (POCT) Routine 12/05/2024 11:22 AM EDT History of kidney stones URINE CULTURE W ID & SENS Routine 12/05/2024 11:18 AM EDT Frequency of urination URINALYSIS, COMPLETE W/REFLEX TO CULTURE Routine 12/05/2024 11:18 AM EDT Flank pain Frequency of urination RFLX - REFLEXIVE URINE CULTURE Routine 12/05/2024 11:18 AM EDT Frequency of urination documented in this encounter Results * CT ABDOMEN & PELVIS W/O CONTRAST MATERIAL (12/15/2024 3:00 AM EDT) 12/15/2024 3:00 AM EDT us Jarad Bragg AUTOMATED LOGISTICS SPECIALIST IMG CT Final Result * (ABNORMAL) URINALYSIS, MULTISTIX (POCT) (12/05/2024 11:22 AM EDT) URINE GLUCOSE 100 (+/-) NEGATIVE [facility] PO[facility] URINE BILIRUBIN SMALL(A) NEGATIVE [facility] POCT URINE KETONES NEGATIVE NEGATIVE [facility] POCT URINE SPECIFIC GRAVITY 1.030(A) <=1.005 - >=1.030 [facility] PO[facility] URINE BLOOD NEGATIVE NEGATIVE [facility] PO[facility] URINE PH 5.5 5.0 - 8.5 [facility] PO[facility] URINE PROTEIN 30 (1+)(A) Negative [facility] PO[facility] URINE UROBILINOGEN 1.0 0.2 - 1.0 E.U./dL [facility] PO[facility] URINE NITRITE POSITIVE(A) NEGATIVE [facility] POCT URINE LEUKOCYTES NEGATIVE NEGATIVE [facility] POCT URINE COLOR ORANGE(A) STRAW, YELLOW [facility] ODOR URINE Normal Normal [facility] CLARITY OF URINE CLEAR CLEAR [facility] POCT Urine Urine specimen / Unknown 12/05/2024 11:22 AM EDT us Jarad Bragg NP LAB URINE AMBULATORY Final Resu lt [facility] POCT * URINE CULTURE W ID & SENS (12/05/2024 11:18 AM EDT) CULTURE See Note [employer] [facility] Comment: ??CULTURE, URINE, ROUTINE ?Micro Number: ?[id number] ??Test Status: ? Final ??Specimen Source: ?? Urine ??Specimen Quality: ??Adequate ??Result: ?Less than 10,000 CFU/mL of single Gram positive ? organism isolated. No further testing will be ? performed. If clinically indicated, recollection ? using a method to minimize contamination, with ? prompt transfer to Urine Culture Transport Tube, ? is recommended. 12/05/2024 11:1 8 AM EDT 12/06/2024 4:17 AM EDT us Jarad Bragg AUTOMATED LOGISTICS SPECIALIST LAB - MICROBIOLOGY AMBULATORY F inal Result Performing Organization Address City/[facility]/ZIP Co de Phone Number [employer] [address] [address], [employer] [address] [address] * RFLX - REFLEXIVE URINE CULTURE (12/05/2024 11:18 AM EDT) REFLEXIVE URINE CULTURE See Below [employer] [facility] Comment:CULTURE INDICATED - RESULTS TO FOLLOW 12/05/2024 11:1 8 AM EDT 12/06/2024 4:17 AM EDT Jarad Bragg AUTOMATED LOGISTICS SPECIALIST LAB - MICROBIOLOGY AMBULATORY E dited Result - Final Performing Organization Address City/[facility]/ZIP Co de Phone Number [employer] [address] [address], [facility] [address] [place] [address] * (ABNORMAL) URINALYSIS, COMPLETE W/REFLEX TO CULTURE (12/05/2024 11:18 AM EDT) COLOR DARK YELLOW YELLOW [facility] APPEARANCE CLEAR CLEAR [facility] SPECIFIC GRAVITY 1.021 1.001 - 1.035 [facility] URINE PH 5.5 5.0 - 8.0 [facility] GLUCOSE NEGATIVE NEGATIVE [facility] BILIRUBIN NEGATIVE NEGATIVE [facility] KETONES NEGATIVE NEGATIVE [facility] OCCULT BLOOD NEGATIVE NEGATIVE [facility] URINE PROTEIN 1+(A) NEGATIVE [facility] NITRITE POSITIVE(A) NEGATIVE [facility] LEUKOCYTE ESTERASE 1+(A) NEGATIVE [facility] URINE LEUKOCYTES 0-5 0 - 5 /HPF [facility] RBC NONE SEEN < OR = 2 [facility] SQUAMOUS EPITHELIAL CELLS 0-5 < OR = 5 /HPF [facility] BACTERIA MODERATE(A) NONE SEEN [facility] CALCIUM OXALATE CRYSTALS MODERATE(A) NONE OR FEW [facility] HYALINE CAST 0-5(A) NONE SEEN /LPF [facility] SEE NOTE See Below [facility] Comment: This urine was analyzed for the presence of WBC, RBC, bacteria, casts, and other formed elements. Only those elements seen were reported. Urine Urine specimen / Unknown 12/05/2024 11:18 AM EDT 12/06/2024 4:17 AM EDT Jarad Bragg AUTOMATED LOGISTICS SPECIALIST LAB URINE AMBULATORY Edited Res ult - Final [employer] [address] [address], [address] [place] [address] documented in this encounter Visit Diagnoses Diagnosis Left leg swelling- Primary Swelling of limb History of kidney stones Personal history of urinary calculi Flank pain Abdominal pain, unspecified site Frequency of urination Urinary frequency Cyst of left ovary Other and unspecified ovarian cyst documented in this encounter Additional Health Concerns Assessment Noted Time PHQ-9 Depression Total Score: 8 05/30/20 24 2:45 PM PDT documented as of this encounter Care Teams Retail Store Assistant Relationship Specialty Start Date End Date Jarad Bragg NP [facility] [place] [address] PCP - General Family Medicine, AUTOMATED LOGISTICS SPECIALIST 06/07/24 documented as of this encounter
--- OUTSIDE RECORDS SUMMARY | 2024-12-21 09:42 | XMS_ITS | Clinical Summary ---
Author Organization [facility] Address [address] [place] [address] Phone Care Team Providers Care Photographic Equipment Mechanic Name Role Phone Janna De Paz Primary Care Provider Allergies Active Allergy Reactions Criticality Noted Date [...] Care Team Description 11/28/2024 Telephone Orthopedic Surgery [facility] [address] [facility] [address] [place] [address] Blanca English SC 11/15/2024 1:30 PM EDT Office Visit Orthopedic [facility] [address] [facility] [address] [place] [phone] Ina Chavarria MD Primary osteoarthritis of left knee 09/27/2024 7:30 AM EST Treatment [facility] [address] [phone] Ruthann Johnson, PT Chronic bilateral low back pain without sciatica (Primary Dx) 09/25/2024 7:30 AM EST Treatment [facility] [address] [phone] Oscar Ashraf, MICA PLATE LAYER HAND Chronic bilateral low back pain without sciatica (Primary Dx) from Last 3 Months Immunizations Name Administration Dates Next Due Hepatitis B (Hweruul-B-Oyyvj , Recombivax HB-Adult) 19yo and older 08/24/2000 PPD Test 04/09/2001,04/07/2001 Surgical History Surgery Date Site/Laterality Comments TUBAL LIGATION PROCEDURE: HISTORICAL TUBAL LIGATION SECTION PROCEDURE: HISTORICAL DELIVERY Medical History Medical History Date Comments Acute bronchospasm 01/31/2007 DX:Acute bron chospasm Pneumonia, organism unspecified(486) 01/31/2007 DX:Pneumonia, organism unspecified(486) Noncompliance with medication regimen 05/10/2008 DX:Noncompliance with medication regimen Systemic lupus erythematosus ([facility] V24, [facility] V28) 03/07/2007 DX:Systemic lupus erythemato aisha (HCC); [...] * Urine Albumin Creatinine Ratio (02/17/2012) Pathologist [facility] Urine Albumin Creatinine Ratio Abstracted Historical Provider HEALTH MAINTENANCE Final Result * HIV Screening (02/01/2012) [facility] HIV Screening Abstracted Historical Provider HEALTH MAINTENANCE Final Result * Hepatitis C Screening (07/15/2011) [facility] Hepatitis C Screening Abstracted [facility] Provider HEALTH MAINTENANCE Final Result * Annual BMP Blood Test (07/17/2010) Pathologist [facility] Annual BMP Blood Test Abstracted [facility] Provider HEALTH MAINTENANCE Final Result from Last 3 Months or Most Recently Relevant to Health Maintenance Insurance MEDICARE MEDICAID - [place] Care Teams Photographic Equipment Mechanic Relationship Specialty Start Date End Date Janna De Paz PA [address] [place] [address] PCP - General Internal Medicine 05/12/19
--- OUTSIDE RECORDS SUMMARY | 2024-12-21 09:42 | XMS_ITS | Encounter Summary ---
Author Organization [facility] Address [address] [place] [address] Care Team Providers Care Hotel Casino Floorperson Name Role Phone Zoey Bragg NP Primary Care Provider [phone] Reason for Visit * Reason Comments Case Management SACHIN Assessment Encounter Details Date Type Department Care Team ([facility] st Contact Info) Description 11/15/2020 Interim Notes [facility]aring [facility] Main [address] [place] [phone] Sangeeta Mccray, RN [address] [place] [address] Social History Tobacco Use Types Packs/Day Years [...] Upcoming Encounters Date Type Department Care Team ([facility] st Contact Info) Description 01/12/2025 4:30 PM EDT / Visits [facility] [address] [place] [phone] Monika Camacho FNP [address] [place] [phone] documented as of this encounter Visit Diagnoses Not on filedocumented in this encounter Additional Health Concerns Infection Onset Date Last Indicated Resolved Time COVID-19 (rule-out) Comment:Added automatically based on ordered lab. 01/03/2021 01/03/2021 01/08/2021 10:45 AM PDT Assessment Noted Time PHQ-9 Depression Total Score: 0 10/08/19 21 1:42 PM PST documented as of this encounter Care Teams [employer] Floorperson Relationship Specialty Start Date End Date Zoey Bragg NP [facility] [place] [address] PCP - General Family Medicine, RAILROAD WATCHMAN 06/07/24 documented as of this encounter
--- OUTSIDE RECORDS SUMMARY | 2024-12-21 09:42 | XMS_ITS | Encounter Summary ---
Author Organization [facility] Address [address] [place] [address] Care Team Providers Care Electro Mechanical Solar Technician Name Role Phone Janna De Paz Primary Care Provider [phone] Encounter Details Date Type Department Care Team (Late st Contact Info) Description 05/30/2024 10:30 AM EDT Hospital Encounter TH HISTORIC ENCOUNTERS EASTERN CONVERSION ONLY Saul Daniels, [facility] [address] [place] [address] Social History Tobacco Use Types [...] on filedocumented in this encounter Care Teams Electro Mechanical Solar Technician Relationship Specialty Start Date End Date Janna De Paz PA [address] [place] [address] PCP - General Internal Medicine 05/12/19 documented as of this encounter
--- OUTSIDE RECORDS SUMMARY | 2024-12-21 09:42 | XMS_ITS | Encounter Summary ---
Author Organization [facility] Address [address] [place] [address] Care Team Providers Care Team Facilitator Name Role Phone Zoey Bragg [facility] Primary Care Provider [phone] Encounter Details Date Type Department Care Team ([facility] st Contact Info) Description 12/20/2024 Results Follow-Up [facility] [address] [place] [id number] Zoey Bragg NP [address] [place] [address] CT ABDOMEN & PELVIS W/O CONTRAST MATERIAL Social History Tobacco Use Types Packs/Day Years [...] PM PDT documented as of this encounter Miscellaneous Notes * Result Encounter Note - Zoey Bragg NP - 12/20/2024 9:05 AM EDT Good morning can you please reach out to patient and let her know CT scan of abdomen came back showing: -3mm nonobstructing bilateral renal calculi. (Since she has history of kidney stones and she was symptomatic I am going to place referral to urology for further evaluation). In the mean time patient should increase fluid intake to 2.5 to 3 L per day to help with passage of stones. -left ovarian cyst measuring up to 4.4cm. Pelvic ultrasound will be placed for further evaluation & referral to our internal [facility]. Thank you documented in this encounter Plan of Treatment Upcoming Encounters Date Type Department Care Team (Late st Contact Info) Description 01/12/2025 4:30 PM EDT / Visits [facility] [address] [place] [phone] Monika Camacho FNP [address] [place] [phone] documented as of this encounter Visit Diagnoses Not on filedocumented in this encounter Additional Health Concerns Assessment Noted Time PHQ-9 Depression Total Score: 8 05/30/20 24 2:45 PM PDT documented as of this encounter Care Teams Team Facilitator Relationship Specialty Start Date End Date Zoey Bragg NP [address] [place] [address] PCP - General Family Medicine, [facility] [facility] 06/07/24 documented as of this encounter
--- OUTSIDE RECORDS SUMMARY | 2024-12-21 09:43 | XMS_ITS | Clinical Summary ---
Author Organization [facility] Address [address] [place] [address] Care Team Providers Care Tufter Hand Name Role Phone Kurtcecilio Messifloresita STIVEN Primary Care Provider [phone] Source Comments PLEASE NOTE, if this patient is a minor, it may be UNLAWFUL to discuss sensitive information that is contained in these records (such as FAMILY PLANNING, MENTAL HEALTH or SUBSTANCE ABUSE) with the minor patient's parent or other person without the patient's specific authorization.RONNY Allergies Active Allergy Reactions Criticality Noted Date Comments Citalopram Other (See Comments) High 03/31/2016 Severe abdominal pain Medications miscellaneous medical supply miscIndications:P ost-operative state,Uterine leiomyoma, unspecified location by miscellaneous route once daily Shower chair. 3 month need. Dx: post-operative status, h/o hysterectomy 1 Each 10/08/19 21 Active walker Walker, See Instructions, # 1 each, Refills 0, Tot. Refills 0, Maintenance, DX: Acute Left femoral DVT, leg pain, unstable gait Height:157 cm, Weight: 125.6 Kg , 11/15/20 12:01:00 EDT, Supply 11/16/19 21 Active hydrOXYchloroQUIN E (PLAQUENIL) 200 mg tablet Take 400 mg by mouth once daily 01/29/20 22 Active albuterol HFA 90 mcg/actuation inhalerIndication s:Shortness of breath Inhale 2 Puffs into the lungs every 4 (four) hours as needed for shortness of breath 18 g 5 10/07/19 24 Active budesonide (PULMICORT FLEXHALER) 180 mcg/actuation inhalerIndication s:Shortness of breath Inhale 1 Puff into the lungs 2 (two) times daily 3 Each 1 10/08/19 24 Active blood-glucose meter monitoring kitIndications:Ty pe 2 diabetes mellitus without complication, without long-term current use of insulin ([facility]) Check FBS daily E11.65. Freestyle Lite 1 Each 10/12/19 24 Active alcohol swabsIndications: Type 2 diabetes mellitus without complication, without long-term current use of insulin ([facility]) Check FBS daily E11.65. 100 Each 11 10/12/19 24 Active melatonin 10 mg capIndications:In somnia, unspecified type Take 1 Capsule by mouth nightly at bedtime as needed (insomnia) 90 Capsule 1 11/22/19 24 Active compress.stocking ,knee,reg,medIndi cations:Type 2 diabetes mellitus with other circulatory complications ([facility]) Cmopresion stockings 20-30 mmHg; lifetime need. Wear daily as needed for leg swelling; Ht 5'2 Wt 265 lb 2 Each 2 02/24/20 24 Active diclofenac sodium (VOLTAREN) 1 % gelIndications:Ch ronic pain of left knee Apply topically 2 (two) times daily 100 g 3 07/14/20 24 Active blood sugar diagnostic (FREESTYLE TEST) stripsIndications :Type 2 diabetes mellitus without complication, without long-term current use of insulin ([facility]) Check FBS daily E11.65. Freestyle Lite 100 Each 11 07/14/20 24 Active lancetsIndication s:Type 2 diabetes mellitus without complication, without long-term current use of insulin ([facility]) Check FBS daily E11.65. 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 TAKE 1 TABLET BY MOUTH EVERY DAY 90 Tablet 10/10/19 25 Active semaglutide (OZEMPIC) 1 mg/dose (4 mg/3 mL) pen injector Inject 1 mg into the skin once a week 3 mL 3 10/19/19 25 Active simvastatin (ZOCOR) 40 mg tablet Take 1 Tablet by mouth nightly at bedtime 90 Tablet 1 10/21/19 25 Active celecoxib (CELEBREX) 100 mg capsuleIndication s:Left knee pain, unspecified chronicity TAKE 1 CAPSULE BY MOUTH TWICE A DAY 60 Capsule 2 10/31/19 25 Active nitrofurantoin, macrocrystal-mono hydrate, (MACROBID) 100 mg capsule Take 1 Capsule by mouth 2 (two) times daily for 7 days 14 Capsule 12/06/19 25 025 Active Problems Problem Noted Date Diagnosed Date Left ovarian cyst 12/20/2024 Overview (12/20/2024): 12/15/24 CT SCAN Impression: -3mm nonobstructing bilateral renal calculi. -left ovarian cyst measuring up to 4.4cm. Pelvic ultrasound characterization suggestion. Type 2 diabetes mellitus wit h other circulatory complications ([facility]) 10/17/2024 History of nuclear stress test 08/27/2024 Overview (08/27/2024): 08/18/24 [facility] Assessment/Plan 1. Abnormal stress test [...] exam 03/08/2024 Overview (03/08/2024): Eye exam 09/03/23 [facility]. Melasma 01/18/2024 Overview (01/18/2024): 01/10/24 Eval at [facility]. Recommends hydroquinone 4% cream BID, f/u 6 months. Panic attacks 11/25/2023 Shingles 11/25/2023 Overview (11/25/2023): Dx in ED 10/24/23 Type 2 diabetes mellitus wit hout complication, without long-term current use of insulin ([facility]) 10/12/2023 Financial difficulties 02/23/2023 Current episode of major dep ressive disorder without prior episode 05/22/2021 Anxiety 05/22/2021 Shortness of breath 03/25/2021 Overview (08/27/2024): 08/18/24: f/u [facility] Pulmonary Assessment/Plan 1. Dyspnea on exertion [...] PGY 3 Dr. Arango Echocardiogram 01/22/21 at [facility] shows 1. This is a technically difficult [...] Pulm valve not well visualized. 02/25/21 Eval [facility] Pul. SOB on exertion, likely due to deconditioning, bedbound, weight gain. ? Of asthma due to hx seasonal allergies and eczema. Lupus pneumonitis less likely. Obtain PFT. If negative will obtain methacholine challenge test. Trial Flovent 110 2 puff BID and albuterol as needed. Recommend weight loss. F/u 6 months. 11/19/23 Eval at [facility] Pul. Dyspnea is likely multifactoral. Recommends full PFTs, stress test with echo. Exercise, compliance with CPAP for DIANNA. Consider Symbicort in the future. 03/03/24 F/u [facility] Pul; Dyspnea likely multifactoral. Recommend exercise, [...] of femoral vein of left lower extremity ([facility]) 11/18/2020 Overview (02/10/2021): 11/13/20-11/15/20 admitted to [facility] for Acute DVT of Left femoral vein. presented tp the ED with left lower leg swelling and pain. U/s shows occlusive thrombosis of the left popliteal and posterior tibial veins. Thought to be provoked due to decreased mobility and recent surgery (JNENIFER 2 weeks ago). Started on Percocet and [...] further eval. History of kidney stones 10/07/2020 Overview (12/20/2024): 12/15/24 CT SCAN Impression: -3mm nonobstructing bilateral renal calculi. -left ovarian cyst measuring up to 4.4cm. Pelvic ultrasound characterization suggestion. Class 3 severe obesity due t o excess calories with serious comorbidity and body mass index (BMI) of 45.0 to 49.9 in adult 10/07/2020 Primary osteoarthritis of left knee 05/06/2020 Overview (11/16/2024): 11/15/24 [facility] Plan: advise she obtain MRI images on a disk for further review. Given her tricompartment arthritis she is not likely a candidate for meniscus repair. May be a candidiate for arthroscopy for menisectomy and removal of loose bodies but she does not report mechanical symptoms at this time. Follow up with PCP for further evaluation of swelling of left leg. 3/10/25: MRI knee rayus Tricompaetmental knee joint osteoarthritis findings prominent at the medial femoral joint space with joint space narrowing subchondral sclerosis and spurring. Free edge truncation / tear of medial meniscus with medial extrusion. Free joint effusion with synovitis and loose bodies [facility]: Left knee pain: Discussed her [...] Follow up as needed. 04/25/20 Eval at [facility] for L knee pain. X-rays normal. Given oxycodone and referred to [facility]. 05/23/[address] [facility]. Dx Left knee medial compartment OA and patellofemoral pain. Given cortisone injection and referred to PT. Anemia 01/12/2019 Lupus (systemic lupus erythematosus) ([facility]) 0 03/31/2016 Overview (03/09/2024): 05/10/[facility] Continue hydroxychloroquine 400 mg daily. 11/08/20 [facility] Recommends lab work and f/u in [...] thyroiditis Sleep apnea 03/31/2016 Overview (09/09/2024): 09/05/24: [facility]: DIANNA-order placed for new machine. Plan to follow up within three months of new machine start or sooner for concerns. Cpap S/P JENNIFER-BSO 03/31/2016 Overview (11/18/2020): CT abd/pelvis w/ contrast 02/13/19 at [facility] shows slight interval increase in the size of the dominant anterior intramural fibroid and in the overall size of the enlarged fibroid uterus. Admitted to [facility] 10/14/20-10/17/20 . JENNIFER/BSO 10/14/20 Dr Bello at [facility] due to fibroids. Post-operative course complicated by hypercarbic respiratory failure, pt admitted to ICU. Recommended sleep study as outpatient. Resolved Problems Problem Noted Date Diagnosed Date Resolved Date Acquired hypothyroidism 07/31/2022 03/0 01/2024 Pneumonia 12/02/2020 07/31/2022 Overview (12/02/2020): [facility] ED 09/10/20. COVID testing negative. Tx for atypical pneumonia with doxycycline and prednisone. Acute respiratory failure wi th hypoxia and hypercarbia ([facility]) 11/18/2020 07/31/2022 Overview (11/18/2020): Admitted to [facility] 10/14/20-10/17/20 . JENNIFER/BSO 10/14/20 Dr Bello at [facility] due to fibroids. Post-operative course complicated by hypercarbic respiratory failure, pt admitted to ICU. Recommended sleep study as outpatient. Encounters Date Type Department Care Team Description 12/20/2024 Results Follow-Up [address] [phone] ABDOMEN & PELVIS W/O CONTRAST MATERIAL 12/05/2024 10:20 AM EDT Office Visit [address] [phone] Zoey Bragg NP Left leg swelling (Primary Dx); History of kidney stones; Flank pain; Frequency of urination; Cyst of left ovary 11/17/2024 4:30 PM EDT / Visits [address] [phone] Monika Camacho FNP Current mild episode of major depressive disorder without prior episode ([facility] V24) (Primary Dx); Anxiety; Panic attacks 10/18/2024 8:40 AM EDT Office Visit [address] [phone] Zoey Bragg NP Type 2 diabetes mellitus with other circulatory complications (HCC-CMS) (Primary Dx); Primary osteoarthritis of left knee 10/13/2024 Interim Notes [address] [phone] Zoey Bragg NP Primary osteoarthritis of left knee (Primary Dx) 10/06/2024 4:30 PM EST BH/ Visits [address] [phone] Monika Camacho FNP Current mild episode of major depressive disorder without prior episode (HCC-CMS) (Primary Dx); Anxiety; Panic attacks 09/29/2024 Interim Notes [address] [phone] Zoey Bragg, STIVEN Osteoarthritis of left knee, unspecified osteoarthritis type (Primary Dx) from Last 3 Months Immunizations Immunization Administration Dates Next Due Flu, Preservative Free 06/01/2023,05/13/2022, Hep B, Adult/Adol (ENERGIX/RECOMBIVAX) 1,06/16/2000 Hep B,adult,adjuvanted (HEPLISAV) 10/07/2023 INFLUENZA, SEASONAL, INJECTABLE 05/13/20 22,04/25/2020,05/15/2016,06/17,09/05/2012 INFLUENZA, SEASONAL, INJECTA BLE, PRESERVATIVE FREE 06/04/2014 Influenza (FLUBLOK),recombinant,injectable,prese rvative Free 05/02/2024 Moderna COVID-19 Vaccine, re d cap blue label, 12+ Primary Series 05/13/2022 PFIZER COVID VACCINE, PURPLE CAP, 12+ 03/25/2021 PNEUMOCOCCAL CONJUGATE PCV 2 0 (Prevnar) 07/14/2024 PNEUMOCOCCAL POLYSACCHARIDE PPV23 (Pneumovax 23) 02/10/2007 Pfizer COVID-19 (Comirnaty), Mrna, Lnp-s, Pf, [...] Date R ecorded Financial Resource Strain 0 07/25/ 2023 Stress Answer Date Recorded Stress 0 02/23/2023 [...] Mass Index 44.63 12/05/2024 10:16 AM EDT Plan of Treatment Upcoming Encounters Date Type Department Care Team (Late st Contact Info) Description 01/12/2025 4:30 PM EDT / Visits [facility] [address] [place] [phone] Monika Camacho FNP [address] [place] [phone] Health Maintenance Due Date Last Done Comments Dental Examination 1980 HPV Screening 1980 Pap + HPV 1980 Medicare Annual Wellness Visit 1998 Pap Smear 2001 Breast Cancer Screening (Mammogram) 2020 [id number] ( season) 2024 10/07/2023, 07/31/2022, 05/13/2022, Additional history exists Alcohol and Drug Screen 08/02/2024 02/24/20 24, 07/31/2022, 03/25/2021, Additional history exists Depression Monitoring 08/30/2024 05/30/2024 , 12/29/2023, 09/09/2023, Additional history exists Retinopathy Screening 09/03/2024 09/03/2023 , 09/03/2023, 09/03/2023 (Managed by Outside Provider) Relationship Safety Screening/Counseling 10/06/2024 10/07/2023, 07/31/2022, 01/13/2021 Serum Creatinine 02/23/2025 02/24/2024, 01/2024, 07/31/2022, Additional history exists TSH Monitoring 02/23/2025 02/24/2024, 03/0 01/2024, 10/07/2023, Additional history exists Urine Albumin Creatinine Rat io Screening 02/23/2025 02/24/2024 Diabetes HbA1c 04/20/2025 10/18/2024, 07/02, 02/24/2024, Additional history exists Anxiety Screening 05/30/2025 05/30/2024 Tobacco Screening 07/14/2025 07/14/2024 Diabetes Foot Exam 10/18/2025 10/18/2024, 0 10/18/2024, 02/24/2024 Lipid Screening 10/18/2025 10/18/2024, 03/0 01/2024, 07/31/2022, Additional history exists Hypertension Screening (#1) 12/05/2025 Imm-DTaP/Tdap/Td (3 - Td or Tdap) 06/01/2033 [...] 12/05/2024 11:18 AM EDT Frequency of urination RFLX - REFLEXIVE URINE CULTURE Routine 12/05/2024 11:18 AM EDT Frequency of urination URINALYSIS, COMPLETE W/REFLEX TO CULTURE Routine 12/05/2024 11:18 AM EDT Flank pain Frequency of urination REFERRAL SCANNED DOCUMENT 11/15/2024 3:00 AM EDT REFERRAL TO ORTHOPEDICS Routine 11/15/2024 3:00 AM EDT Primary osteoarthritis of left knee LIPID PANEL Routine 10/18/2024 10:12 AM EDT Type 2 diabetes mellitus with other circulatory complications ([facility]) HEMOGLOBIN GLYCOSYLATED A1C Routine 10/18/2024 10:12 AM EDT Type 2 diabetes mellitus with other circulatory complications (HCC-CMS) MR KNEE WO Routine 10/09/2024 3:00 AM EDT Osteoarthritis of left knee, unspecified osteoarthritis type THYROID CASCADING REFLEX PANEL Routine 02/24/2024 11:38 AM EDT 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 BASIC METABOLIC PANEL CALCIUM TOTAL Routine 02/24/2024 11:38 AM EDT Type 2 diabetes mellitus with other circulatory complications (HCC-CMS) MICROALBUMIN/CREATIN INE RATIO, URINE, RANDOM Routine 02/24/2024 11:38 AM EDT Type 2 diabetes mellitus with other circulatory complications ([facility]) EYE EXAM 09/03/2023 3:00 AM EST HIV 1/2 AG & AB W/RFLX (4TH GEN) Routine 07/31/2022 3:56 PM EST Exposure to potential infection HEPATITIS C AB W/RFLX HCV RNA, QT, RT PCR Routine 07/31/2022 3:56 PM EST Exposure to potential infection from Last 3 Months or Most Recently Relevant to Health Maintenance Results * CT ABDOMEN & PELVIS W/O CONTRAST MATERIAL (12/15/2024 3:00 AM EDT) 12/15/2024 3:00 AM EDT Zoey Bragg INSIDE CHANNEL ACCOUNT MANAGER IMG CT Final Result * (ABNORMAL) URINALYSIS, [...] / Unknown 12/05/2024 11:22 AM EDT us Zoey Bragg INSIDE CHANNEL ACCOUNT MANAGER LAB URINE AMBULATORY Final Resu lt Performing Organization Address [facility] Co de Phone Number [facility] BACK OFFICE POCT * URINE CULTURE W ID & SENS (12/05/2024 11:18 AM EDT) CULTURE See Note [facility] Comment: ??CULTURE, URINE, ROUTINE ?Micro Number: ?[id number] ??Test Status: ? Final ??Specimen Source: ?? Urine ??Specimen Quality: ??Adequate ??Result: ?Less than 10,000 CFU/mL of single Gram positive ? organism isolated. No further testing will be ? performed. If clinically indicated, recollection ? using a method to minimize contamination, with ? prompt transfer to Urine Culture Transport Tube, ? is recommended. 12/05/2024 11:1 8 AM EDT 12/06/2024 4:17 AM EDT us Zoey Bragg INSIDE CHANNEL ACCOUNT MANAGER LAB - MICROBIOLOGY AMBULATORY F inal Result Performing Organization Address [facility] Co de Phone Number [facility] [address] [address], [facility] [address] [place] [address] * (ABNORMAL) URINALYSIS, COMPLETE W/REFLEX TO CULTURE (12/05/2024 11:18 AM EDT) COLOR DARK YELLOW YELLOW [facility] APPEARANCE CLEAR CLEAR [facility] SPECIFIC GRAVITY 1.021 1.001 - 1.035 [facility] URINE PH 5.5 5.0 - 8.0 [facility] GLUCOSE NEGATIVE NEGATIVE [facility] BILIRUBIN NEGATIVE NEGATIVE [facility] KETONES NEGATIVE NEGATIVE [facility] OCCULT BLOOD NEGATIVE NEGATIVE [facility] URINE PROTEIN 1+(A) NEGATIVE [facility] NITRITE POSITIVE(A) NEGATIVE [facility] LEUKOCYTE ESTERASE 1+(A) NEGATIVE [facility] URINE LEUKOCYTES 0-5 0 - 5 /HPF [facility] RBC NONE SEEN < OR = 2 [facility] SQUAMOUS EPITHELIAL CELLS 0-5 < OR = 5 /HPF [facility] BACTERIA MODERATE(A) NONE SEEN [facility] CALCIUM OXALATE CRYSTALS MODERATE(A) NONE OR FEW [facility] HYALINE CAST 0-5(A) NONE SEEN /LPF [facility] SEE NOTE See Below [facility] Comment: This urine was analyzed for the presence of WBC, RBC, bacteria, casts, and other formed elements. Only those elements seen were reported. Urine Urine specimen / Unknown 12/05/2024 11:18 AM EDT 12/06/2024 4:17 AM EDT us Zoey Bragg INSIDE CHANNEL ACCOUNT MANAGER LAB URINE AMBULATORY Edited Res ult - Final Performing Organization Address City/[facility]/ZIP Co de Phone Number [facility] [address] [address], [facility] [address] [address] * RFLX - REFLEXIVE URINE CULTURE (12/05/2024 11:18 AM EDT) REFLEXIVE URINE CULTURE See Below [facility] Comment:CULTURE INDICATED - RESULTS TO FOLLOW 12/05/2024 11:1 8 AM EDT 12/06/2024 4:17 AM EDT us Zoey Bragg INSIDE CHANNEL ACCOUNT MANAGER LAB - MICROBIOLOGY AMBULATORY E dited Result - Final Performing Organization Address [facility]/ZIP Co de Phone Number [facility] [address] [address], [employer] [address] [address] * REFERRAL SCANNED DOCUMENT (11/15/2024 3:00 AM EDT) 11/15/2024 3:00 AM EDT [facility] INSIDE CHANNEL ACCOUNT MANAGER SCAN REFERRAL Final Result * REFERRAL TO ORTHOPEDICS (11/15/2024 3:00 AM EDT) 11/15/2024 3:00 AM EDT Zoey [facility] INSIDE CHANNEL ACCOUNT MANAGER REFERRAL Edited Result - Final * (ABNORMAL) HEMOGLOBIN GLYCOSYLATED A1C (10/18/2024 10:12 AM EDT) HEMOGLOBIN A1C 6.1(H) <5.7 % of total Hgb [facility] Comment: For someone without known diabetes, a [...] diabetes for children. Blood Blood / Unknown 10/18/2024 1 0:12 AM EDT 10/18/2024 10:12 AM EDT Narrative [facility] - 10/19/2024 4:07 AM EDT FASTING:YES [facility] INSIDE CHANNEL ACCOUNT MANAGER LAB - BLOOD DRAW Edited Result - Final [facility] [address] [place] [address], [facility] [address] [address] * (ABNORMAL) LIPID PANEL (10/18/2024 10:12 AM EDT) CHOLESTEROL, TOTAL 207(H) <200 mg/dL [facility] HDL CHOLESTEROL 58 > OR = 50 mg/dL [facility] TRIGLYCERIDES 121 <150 mg/dL [facility] LDL-CHOLESTEROL 126(H) 99 mg/dL (calc) [facility] Comment: Reference range: <100 Desirable range <100 mg/dL for primary prevention; ?? <70 mg/dL for patients with CHD or diabetic patients with > or = 2 CHD risk factors. LDL-C is now calculated using the Danielle calculation, which is a validated novel method providing better accuracy than the Friedewald equation in the estimation of LDL-C. Ho SS et al. VITALIY. 2013;310(19): 3154-7926 (http://education.[employer]/faq/FFU755) CHOL/HDLC RATIO 3.6 <5.0 (calc) [facility] NON-HDL CHOLESTEROL 149(H) <130 mg/dL (calc) [facility] Comment: For patients with diabetes plus 1 major ASCVD risk factor, treating to a non-HDL-C goal of <100 mg/dL (LDL-C of <70 mg/dL) is considered a therapeutic option. Blood Blood / Unknown 10/18/2024 1 0:12 AM EDT 10/18/2024 10:12 AM EDT Narrative [facility] - 10/19/2024 4:07 AM EDT FASTING:YES us Zoey Bragg NP LAB - BLOOD DRAW Final Result [facility] [address] [place] [address], [facility] [address] [place] [phone] * MR KNEE WO [[id number]](Rayus) (10/09/2024 3:00 AM EDT) 10/09/2024 3:00 AM EDT us Zoey Bragg NP IMG MRI Final Result [facility] Corporate Office [address], [address] [place] [address], [place] [phone] * THYROID CASCADING REFLEX PANEL (02/24/2024 11:38 AM EDT) Pathologist [facility] TSH 0.62 0.40 - 4.50 mIU/L [facility] Comment: ?Reference Range ?> or = 20 Years ??0.40-4.50 ? Ranges ?First trimester ?0.26-2.66 ?Second trimester ?? 0.55-2.73 ?Third trimester ?0.43-2.91 Blood Blood / Unknown 02/24/2024 1 1:38 AM EDT 02/24/2024 11:38 AM EDT Narrative [facility] - 02/25/2024 4:21 PM EDT FASTING:YES Sangeeta Pearce CLINICAL LABORATORY SERVICE TEACHER LAB - BLOOD DRAW Edited R esult - Final [facility] [address] [place] [address], [facility] [address] [place] [address] * MICROALBUMIN/CREATININE RATIO, URINE, RANDOM (02/24/2024 11:38 AM EDT) Pathologist [facility] CREATININE, RANDOM URINE 177 20 - 275 mg/dL [facility] MICROALBUMIN 0.5 mg/dL [employer] Comment: Reference Range Not established MICROALBUMIN/CREA TININE RATIO, RANDOM URINE 3 <30 mg/g creat [facility] Comment: The ADA defines abnormalities in albumin [...] AM EDT 02/24/2024 11:38 AM EDT Narrative [facility] - 02/25/2024 4:21 PM EDT FASTING:YES us Sangeeta Pearce CLINICAL LABORATORY SERVICE TEACHER LAB URINE AMBULATORY Yodit l Result [facility] [address] [address], [facility] [address] [place] [address] * (ABNORMAL) BASIC METABOLIC PANEL CALCIUM TOTAL (02/24/2024 11:38 AM EDT) GLUCOSE 155(H) 65 - 99 mg/dL [facility] Comment: ?Fasting reference interval For someone without known diabetes, a glucose value >125 mg/dL indicates that they may have diabetes and this should be confirmed with a follow-up test. UREA NITROGEN (BUN) 14 7 - 25 mg/dL [facility] CREATININE (blood) 0.79 0.50 - 0.99 mg/dL [facility] EGFR 95 > OR = 60 mL/min/1. 73m2 [facility] BUN/CREATININE RATIO SEE NOTE: [employer] Comment: ?? Not Reported: BUN and Creatinine are within ?? reference range. ? SODIUM 137 135 - 146 mmol/L [facility] POTASSIUM 4.2 3.5 - 5.3 mmol/L [facility] CHLORIDE 103 98 - 110 mmol/L [facility] CARBON DIOXIDE 25 20 - 32 mmol/L [facility] CALCIUM 9.6 8.6 - 10.2 mg/dL [facility] Blood Blood / Unknown 02/24/2024 1 1:38 AM EDT 02/24/2024 11:38 AM EDT Narrative [facility] - 02/25/2024 4:21 PM EDT FASTING:YES Sangeeta BROUSSARDP LAB - BLOOD DRAW Edited R esult - Final Performing Organization Address [facility]/ZIP Co de Phone Number [facility] [address] [address], [facility] [address] [address] * EYE EXAM (09/03/2023 3:00 AM EST) 09/03/2023 3:00 AM EST Steffany Portia CLINICAL LABORATORY SERVICE TEACHER OTHER Final Res ult * Hep C Antibody with Reflex HCV RNA (07/31/2022 3:56 PM EST) HEPATITIS C ANTIBODY NON-REACT [place] NON-REACT [place] [facility] SIGNAL TO CUT-OFF <0.02 <1.00 [facility] Comment: HCV antibody was non-reactive. There is no laboratory evidence of HCV infection. In most cases, no further action is required. However, if recent HCV exposure is suspected, a test for HCV RNA (test code 78377) is suggested. For additional information please refer to http://education.AirDroids/faq/AFT41i7 (This link is being provided for informational/ educational purposes only.) Blood Blood / Unknown 07/31/2022 3 :56 PM EST 07/31/2022 3:57 PM EST Narrative [facility] - 08/01/2022 2:07 AM EST FASTING:NO Philip Saldana MD LAB - BLOOD DRAW Edited Resu lt - Final Performing Organization Address City/[facility]/ZIP Co de Phone Number [facility] [address] [address], [employer] [address] ([address] [address] * HIV Ag & Ab with Reflex Western Blot (07/31/2022 3:56 PM EST) HIV AG/AB, 4TH GEN NON-REAC TIVE NON-REAC TIVE [facility] Comment: HIV-1 antigen and HIV-1/HIV-2 antibodies were [...] ?? For additional information please refer to http://education.AirDroids/faq/PJT861 (This link is being provided for informational/ educational purposes only.) The performance of this assay has not been clinically validated in patients less than 2 years old. Blood Blood / Unknown 07/31/2022 3 :56 PM EST 07/31/2022 3:57 PM EST Narrative [facility] - 08/01/2022 2:07 AM EST FASTING:NO us Philip Saldana MD LAB - BLOOD DRAW Final Resul t [facility] [address] [place] [address], [facility] [address]) [place] [address] from Last 3 Months or Most Recently Relevant to Health Maintenance Insurance [place] D[place] Care Teams Tufter Hand Relationship Specialty Start Date End Date Zoey Bragg NP [address] [place] [address] PCP - General Family Medicine, INSIDE CHANNEL ACCOUNT MANAGER 06/07/24
[2024-12-21 17:58] LABS: Appearance Urine Cloudy; Color Urine Yellow; Glucose Urine UA Negative (Negative); Leukocyte Esterase Urine Negative (Negative); Nitrite Urine Negative (Negative); Specific Gravity - Urine >= 1.030 (1.005-1.025); Urine Blood Negative (Negative); Urine Ketones Negative (Negative); Urine Protein Negative (Neg-Trace)
[2024-12-21 18:01] LABS: Bacteria Urine Trace (None Seen); RBC Urine 0-2 /HPF (0-2); WBC Urine 0-5 /HPF (0-5)
[2024-12-21 18:10] LABS: Alanine Aminotransferase 24 U/L (0-31); Aspartate Amino Transferase 30 U/L (5-31); C Reactive Protein 0.45 mg/dL (< or = 0.50); Estimated Glomerular Filt Rate > 60
[2024-12-21 18:13] LABS: Baso%MD 0.5 %; Hematocrit 42.6 % (37.0-47.0); IG%MD 0.2 %; Mean Corpuscular HGB Conc 32.9 g/dl (31.0-35.0); Mean Corpuscular Hemoglobin 27.7 pg (27.0-33.0); Mean Corpuscular Volume 84.2 fL (80.0-98.0); Mean Platelet Volume 10.7 fL (9.4-12.3); Mono%MD 11.8 %; Neut%MD 53.5 %; Platelet Count 323 X10*3/uL (160-400); Red Blood Count 5.06 X10*6/uL (4.20-5.50); Red Cell Distribution Width 14.5 % (11.0-16.0); White Blood Count 4.1 X10*3/uL (4.8-10.8)
[2024-12-21 18:20] LABS: Creatinine Urine 177.82 mg/dL; Protein/Creatinine Ratio, Ur 0.06 (<0.2); Total Protein Urine Random 10 mg/dL (<12)
[2024-12-21 18:38] LABS: Erythrocyte Sedimentation Rate 30 MM/HR (0-20)
[2024-12-21 18:40] LABS: Eosinophils Absolute Manual 0.1 X10*3/uL (0.0-0.4); Eosinophils Percent Manual 3 % (0-4); Lymphocytes Absolute Manual 1.1 X10*3/uL (1.2-4.9); Lymphocytes Percent Manual 28 % (20-40); Monocytes Absolute Manual 0.4 X10*3/uL (0.1-1.2); Monocytes Percent Manual 9 % (2-11); Neutrophils Percent Manual 60 % (45-73); Platelet Estimate NORMAL (NORMAL); Platelet Morphology Comment NORMAL; RBC Morphology NOTED; Toxic Vacuolation PRESENT
[2024-12-21 18:45] LABS: Neutrophils Absolute Manual 2.5 X10*3/uL (2.0-8.3)
[2024-12-22 21:27] LABS: Anti DNA DS Antibody 2 IU/mL
[2024-12-22 21:38] LABS: Complement C3 182 mg/dL (83-193)
== END 2024-12-21 08:24 | disposition home or self-care (01) ==
LOC: HO.HKASLDS 08:23
PROVIDERS: PCP Nurse Practitioner; Visit Provider Internal Medicine Rheumatology
DX: M32.9 Systemic lupus erythematosus, unspecified (principal); M25.562 Pain in left knee; G89.29 Other chronic pain; M17.12 Unilateral primary osteoarthritis, left knee; Z79.899 Other long term (current) drug therapy
CPT/HCPCS: 20610; 36415; 81001; 82565; 82570; 84156; 84450; 84460; 85007; 85027; 85652; 86140; 86160; 86225; 99212; J2003; J3300

== ENCOUNTER 2024-12-21 08:23 | Outpatient (AMB) | payer MEDICARE, MEDICAID, SELFPAY ==
--- NOTE | 2024-12-21 08:26 | A.OFFVIS_ITS ---
Vital Signs 12/21/24 08:27 Height 5 ft 2 in Weight 251 lb 5.231 oz BMI 46.0 BP 120/70 Blood Pressure Location Lt brachial Position Sitting Pulse 94 Pulse Source Pulse Oximeter Pulse Oximetry (%) 98 Oxygen Delivery Method Room Air Intake Visit Reasons: 3 Months Intake Note: Patient presents for Arthralgia. Accompanied by: Self / Same As Patient Allergies citalopram [From Celexa] Allergy (Mild, Verified 09/27/24 09:02) Abdominal Pain HPI HPI 3 Months: Details: Left knee pain started 4 days ago. She is having difficulty walking. No trauma or triggering event. She has been using Celebrex and icing knee without bene fit. Denies fevers, chills, dyspnea, pleurisy, sicca symptoms, oral ulcers, Raynaud's phenomenon, rash, urinary symptoms. She had MRI September 2024, which revealed tricompartment osteoarthritis and medial meniscus tear. Orthopedic surgeon gave her 2 options but she has only illegible for 1 option if her BMI is 40, which is arthroscopic procedure. She is on Ozempic. Last cortisone injection provided her benefit. She is more active since last injection. She also saw vascular surgery who thinks patient has lymphedema and we will be following up with patient in 3 months after patient wearing com pression stockings for consideration of ultrasounds. Physical Exam Vital Signs: Last Vital Signs Pulse 94 12/21/24 08:27 BP 120/70 12/21/24 08:27 Pulse Ox 98 12/21/24 08:27 Oxygen Delivery Method Room Air 12/21/24 08:27 BMI result Body Mass Index 46.0 Const Other: General: Comfortable CVS: RRR Respiratory: clear to auscultation bilaterally. Good respiratory effort Skin: No lesions seen MSK: No synovitis. Normal range of motion of upper extremities. Left knee joint line tenderness. No Dykes cyst was palpated. No knee effusion was palpated. Knee flexion 90 degrees left side. Office Procedures AMB Joint Injection/Aspiration Joint Injection/Aspiration Details: Left knee joint Prep: site was prepped using aseptic technique Injected: 40 mg of, Kenalog, with 1 mL of and 1% plain lidocaine Procedure: Informed verbal consent was obtained. The patient tolerated the procedure well. Postprocedure protocol was discussed with patient. Coding 94546 - Large joint Procedure code (CPT) selection complete Office Meds lidocaine (PF) 10 mg/mL (1 %) injection solution Performing Provider: Juan Mark MD Performing Location: [facility] Administered by: Juan Mark MD on 12/22/24 12:48 Dose Route Admin Location Dispensed Lot Number Expiration Date [place] Instructional Technology Coordinator 10 mg Infiltration 2 mL [id number] [facility] Kenalog 40 mg/mL suspension for injection Performing Provider: Juan Mark MD Performing Location: [facility] Administered by: Juan Mark MD on 12/22/24 12:48 Dose Route Admin Location Dispensed Lot Number Expiration Date [facility] Instructional Technology Coordinator 40 mg intra-articular 1 mL SD [id number] SHASH[employer] [facility]W[employer] [facility] Assessment & Plan Assessment & Plan (1) Systemic lupus erythematosus: Comment: Clinically quiescent on hydroxychloroquine. Labs 09/2024 reveal chronic low C4. She does not have a cytopenias, which she has had in the past likely attributed to compliance on hydroxychloroquine. History of SLE diagnosed 2007 after [facility] admission presenting with pleurisy, cutaneous SLE and positive double-stranded DNA 1:20. She was on prednisone and hydroxychloroquine. History of chronic leukopenia, iron deficiency anemia, low C4 and elevated ESR. She has had myalgias related to uncontrolled hypothyroidi sm. Code(s): M32.9 - Systemic lupus erythematosus, unspecified Category: Medical Qualifiers: Systemic lupus erythematosus organ involvement: unspecified Systemic lupus erythematosus type: unspecified Qualified Code(s): M32.9 - Systemic lupus erythematosus, unspecified Plan: Labs for disease and drug monitoring on high-risk medication due this visit Continue hydroxychloroquine 400 mg daily Eye exam for hydroxychloroquine surveillance visual field testing 11/19/2021 is okay. Eye exam September 2023 without toxicity noted. Requesting eye exam 10/03/2024. Return to clinic in 3 months (2) Knee pain, left: Comment: History of osteoarthritis with cortisone injection 02/01/2024, 09/2024 with benefit. Hamstring strain and meniscus tear is also likely contributing to her knee pain. We reviewed MRI results on her phone that she recently had. MRI confirms tricompartment osteoarthritis with medial meniscus tear. Orthopedic surgeon is recommending weight loss prior to arthroscopic procedure. Patient is knee pain is uncontrolled at this time. She had benefit with cortisone injections in the past. I will treat her osteoarthritis pain with cortisone injection. Code(s): M25.562 - Pain in left knee Category: Medical Qualifiers: Chronicity: chronic Qualified Code(s): M25.562 - Pain in left knee; G89.29 - Other chronic pain Plan: Patient received left knee cortisone injection After 2 weeks, she will resume home PT program Continue weight loss with healthy eating and exercise. She is on Ozempic When her BMI is less than 40, orthopedic surgeon is willing to consider performing arthroscopic procedure on left knee to repair meniscus if her pain is not controlled Requesting MRI report from [facility] Return to clinic in 3 months (3) Other senior care (current) drug therapy: Code(s): Z79.899 - Other exterminator (current) drug therapy Category: Medical Plan: See above. (4) Osteoarthritis of left knee: Comment: Uncontrolled pain. Failed physical therapy and bracing. She has received cortisone injections on 02/01/2024 and September 2024 with benefit. Code(s): M17.12 - Unilateral primary osteoarthritis, left knee Category: Medical Qualifiers: Osteoarthritis type: primary Qualified Code(s): M17.12 - Unilateral primary osteoarthritis, left knee Plan: Patient received left knee cortisone injection Continue to wear hinged knee brace Continue to do exercises learned from PT She is in a week she will try to discontinue Celebrex if pain is controlled. If she has increased pain office Celebrex, she will call office for prescription refill. If she has stable kidney function and liver function okay to send refills Return to clinic in 3 months Orders: Orders Complete Blood Count Man Dif 12/21/24 M32.9 - Systemic lupus erythematosus, unspecified C Reactive Protein 12/21/24 M32.9 - Systemic lupus erythematosus, unspecified Erythrocyte Sedimentation Rate 12/21/24 M32.9 - Systemic lupus erythematosus, unspecified Protein Creatinine Ratio, Ur 12/21/24 M32.9 - Systemic lupus erythematosus, unspecified Anti DNA DS Antibody 12/21/24 M32.9 - Systemic lupus erythematosus, unspecified Complement C3 12/21/24 M32.9 - Systemic lupus erythematosus, unspecified AMB Joint Injection/Aspiration 12/21/24 G89.29 - Other chronic pain, M25.562 - Pain in left knee Alanine Aminotransferase 12/21/24 M32.9 - Systemic lupus erythematosus, unspecified Aspartate Amino Transferase 12/21/24 M32.9 - Systemic lupus erythematosus, unspecified Creatinine 12/21/24 M32.9 - Systemic lupus erythematosus, unspecified UA w Microscopic 12/21/24 M32.9 - Systemic lupus erythematosus, unspecified Complement C4 12/21/24 M32.9 - Systemic lupus erythematosus, unspecified Medications: Refilled hydroxychloroquine 400 mg (2 x 200 mg) PO DAILY 180 tabs 1RF Coding Level of Care Code Est Pt Level 4 (25946) Complex EM visit Add On G2211 Diagnoses Systemic lupus erythematosus, unspecified SLE type, unspecified organ involvement status M32.9 Systemic lupus erythematosus organ involvement: unspecified Systemic lupus erythematosus type: unspecified Chronic pain of left knee M25.562; G89.29 Chronicity: chronic Other senior care (current) drug therapy Z79.899 Primary osteoarthritis of left knee M17.12 Osteoarthritis type: primary CPT Codes Coding - 63912 Large joint: 66436 - Large joint ([id number])
[2024-12-21 08:27] VITALS: BP 120/70; PULSE 94; O2SAT 98; BMI 46.0
--- OUTSIDE RECORDS SUMMARY | 2024-12-21 08:32 | XMS_ITS | Encounter Summary ---
Author Organization [facility] Address [address] [place] [address] Care Team Providers Care Open Cut Examiner Name Role Phone Janna De Paz Primary Care Provider [phone] Encounter Details Date Type Department Care Team (Late st Contact Info) Description 05/30/2024 10:30 AM EDT Hospital Encounter TH HISTORIC ENCOUNTERS [facility] CONVERSION ONLY Saul Daniels, [address] [place] [address] Social History Tobacco Use Types [...] on filedocumented in this encounter Care Teams Open Cut Examiner Relationship Specialty Start Date End Date Janna De Paz PA [address] [place] [address] PCP - General Internal Medicine 05/12/19 documented as of this encounter
--- OUTSIDE RECORDS SUMMARY | 2024-12-21 08:32 | XMS_ITS | Clinical Summary ---
Author Organization [facility] Address [address] [place] [address] Phone Care Team Providers Care Automation Tender Name Role Phone Janna De Paz Primary Care Provider [phone] Allergies Active Allergy Reactions Criticality Noted Date [...] 1 Tab by mouth daily. 02/02/2012 Active SIMVASTATIN ORAL Take by mouth. Active Active Problems Problem Noted Date Diagnosed Date DVT, lower extremity (CMS/HCC V24, CMS/HCC V28) 10/24/2021 Overview (07/17/2024): 11/13/2020 Left LE DVT: [...] on cpap IMO update Systemic lupus erythematosus (CMS/HCC V24, CMS/H CC V28) 03/07/2007 Overview (07/17/2024): 02/05: pleural effusions; + anti-DNA, low complements, arthralgias, rash; treated with Plaquenil and prednisone Eye exam September 2010 Hypothyroidism 11/09/2005 Overview (07/17/2024): Lab Results Component Value Date TSH 45.80 07/12/2020 TSH 10.44 02/29/2012 TSH 18.39 02/17/2012 Referral to endocrine Encounters Date Type Department Care Team Description 11/28/2024 Telephone Orthopedic Surgery [facility] [address] [facility] [address] [place] [address] Blanca English NE 11/15/2024 1:30 PM EDT Office Visit Orthopedic [facility] [address] [facility] [address] [place] [phone] Ina Chavarria MD Primary osteoarthritis of left knee 09/27/2024 7:30 AM EST Treatment [facility] [address] [phone] Ruthann Johnson, PT Chronic bilateral low back pain without sciatica (Primary Dx) 09/25/2024 7:30 AM EST Treatment [facility] [address] [phone] Oscar Ashraf, WIRE WHEELER Chronic bilateral low back pain without sciatica (Primary Dx) from Last 3 Months Immunizations Name Administration Dates Next Due Hepatitis B (Hyoabij-N-Yzifl , Recombivax HB-Adult) 19yo and older 08/24/2000 PPD Test 04/09/2001,04/07/2001 Surgical History Surgery Date Site/Laterality Comments TUBAL LIGATION PROCEDURE: HISTORICAL TUBAL LIGATION SECTION PROCEDURE: HISTORICAL DELIVERY Medical History Medical History Date Comments Acute bronchospasm 01/31/2007 DX:Acute bron chospasm Pneumonia, organism unspecified(486) 01/31/2007 DX:Pneumonia, organism unspecified(486) Noncompliance with medication regimen 05/10/2008 DX:Noncompliance with medication regimen Systemic lupus erythematosus ([facility] V24, [facility] V28) 03/07/2007 DX:Systemic lupus erythemato aisha (HCC); COMMENT: 02/05: pleural effusions; + anti-DNA, low complements, arthralgias, rash; treated with Plaquenil and prednisone Depression 01/17/2009 DX:Depression Cholelithiasis 2017 DX:Cholelithiasi s Renal calculi DX:Renal calculi ; COMMENT: 2017 Fatty liver 09/2017 DX:Fatty liver Family History [...] - Inhaled Oxygen Concentration - - Weight 115 kg (253 lb) 11/15/2024 1:24 PM EDT Height 157.5 cm (5' 2.01 ) 11/15/2024 1:24 PM ED T Body Mass Index 46.26 11/15/2024 1:24 PM EDT Plan of Treatment Health Maintenance Due Date Last Done Comments Breast Cancer Screening 1980 Diabetes: Annual Foot Exam 1990 Diabetes: Annual Retina Eye Exam 1990 Hepatitis A Vaccines (1 of 2 - Risk 2-dose series) 1999 Medicare Annual Wellness Visit 07/05/2022 Social Influencers of Health Screening 07/05/2022 COVID-19 Vaccine () 04/02/2024 10/07/2023, 07/31/2022, 05/13/2022, Additional history exists Diabetes: Annual Urine Albumin-Creatinine Ratio (uACR) 02/23/2025 02/24/2024, 02/17/2012 Diabetes: Annual GFR (Glomerular Filtration Rate) 02/23/2025 02/24/2024, 07/17/2010 Diabetes: Blood Sugar Control Test (HGBA1C) 04/20/2025 10/18/2024, 07/14/2024 Depression Screening 05/30/2025 05/30/2024 Cholesterol Screening (Lipid Panel) 10/18/2029 10/18/2024, 10/18/2024, 10/07/2023, Additional history exists DTaP,Tdap,and Td Vaccines (3 - Td or [...] age to complete this topic Meningococcal B Vaccine Aged Out No l onger eligible based on patient's age to complete this topic RSV Immunization Patients Under 20 months Aged Out No longer eligible based on patient's age to complete this topic Varicella Vaccines Aged Out No longer eligible based on patient's age to complete this topic Goals Goal Patient Goal Type Associated Problems Recent Progress Patient-Stated? Author LTTylor - 8 visits General No Joann Johnson, [...] Procedure Name Priority Date/Time Associated Diagnosis Comments MR KNEE WO CONTRAST LEFT Routine 11/17/2024 10:30 AM EDT URINE ALBUMIN CREATININE RATIO Routine 02/17/2012 HIV SCREENING Routine 02/01/2012 HEPATITIS C SCREENING Routine 07/15/2011 ANNUAL BMP BLOOD TEST Routine 07/17/2010 from Last 3 Months or Most Recently Relevant to Health Maintenance Results * MR Knee wo Contrast Left (11/17/2024 10:30 AM EDT) Anatomical Region Laterality Modality Lower Extremities, Knee Left Magnetic Resonance Historical Provider IMG MRI PROCEDURES Final Result * Urine Albumin Creatinine Ratio (02/17/2012) Pathologist [facility] Urine Albumin Creatinine Ratio Abstracted Historical Provider HEALTH MAINTENANCE Final Result * HIV Screening (02/01/2012) [facility] HIV Screening Abstracted Historical Provider HEALTH MAINTENANCE Final Result * Hepatitis C Screening (07/15/2011) [facility] Hepatitis C Screening Abstracted [facility] Provider HEALTH MAINTENANCE Final Result * Annual BMP Blood Test (07/17/2010) Pathologist [facility] Annual BMP Blood Test Abstracted [facility] Provider HEALTH MAINTENANCE Final Result from Last 3 Months or Most Recently Relevant to Health Maintenance Insurance MEDICARE MEDICAID - [place] Care Teams Automation Tender Relationship Specialty Start Date End Date Janna De Paz PA [address] [place] [address] PCP - General Internal Medicine 05/12/19
== END 2024-12-21 10:04 | disposition home or self-care (01) ==
LOC: HO.RHES 08:24
PROVIDERS: PCP Nurse Practitioner; Visit Provider Internal Medicine Rheumatology
DX: M32.9 Systemic lupus erythematosus, unspecified (principal); M25.562 Pain in left knee; G89.29 Other chronic pain; Z79.899 Other long term (current) drug therapy; M17.12 Unilateral primary osteoarthritis, left knee
CPT/HCPCS: 20610; 99214

== ENCOUNTER 2025-06-27 15:05 | Outpatient (AMB) | payer MEDICARE, MEDICAID, SELFPAY ==
--- OUTSIDE RECORDS SUMMARY | 2024-05-30 09:30 | XMS_ITS | Encounter Summary ---
Author Organization [facility] Address [address] [place] [address] Care Team Providers Care Utility Bill Complaints Investigator Name Role Phone Janna De Paz Primary Care Provider [phone] Encounter Details Date Type Department Care Team (Late st Contact Info) Description 05/30/2024 10:30 AM EDT Hospital Encounter TH HISTORIC ENCOUNTERS EAST[facility] CONVERSION ONLY Saul Daniels, [address] [place] [address] Social History Tobacco Use Types Packs/Day Years Used Date Smoking Tobacco: Former Smokeless Tobacco: Never Alcohol Use Standard Drinks/Week Comments Yes 0 (1 standard drink = 0.6 oz pur e alcohol) Comments Unknown Sex and Gender Information Value Date Recorded Sex Assigned at Not on file Legal Sex Female 4:56 AM EST Gender Identity Not on file Sexual Orientation Not on file documented as of this encounter Plan of Treatment Not on file documented as of this encounter Goals Goal Patient Goal Type Associated Problems Recent Progress Patient-Stated? Author LTG - 8 visits General No Joann Johnson PT Note: 05/30/2024 11:38 AM - Active Patient reports subjective decrease in L knee pain 05/30/2024 11:39 AM - Active Patient is able to achieve 5/5 knee flexion/extension strength 05/30/2024 11:39 AM - Active Patient is able to achieve 125 degrees of L knee flexion 05/30/2024 11:39 AM - Active Patient is able to achieve 0 degrees of L knee extension 05/30/2024 11:39 AM - Active Patient is independent and compliant with HEP documented as of this encounter Visit Diagnoses Not on filedocumented in this encounter Care Teams Utility Bill Complaints Investigator Relationship Specialty Start Date End Date Janna De Paz PA [address] [place] [address] PCP - General Internal Medicine 05/12/19 documented as of this encounter
--- NOTE | 2025-06-27 15:19 | MHC.OFFVIS ---
Intake Visit Reasons: Kidney Stones/Hx Of Stones/UA(set) Intake Note: Reason for Visit: New Patient Kidney Stones/HX Of Stones Urology Meds: None Blood Thinners: Aspirin Antibiotic Allergy: None Labs: None Imaging: CT Scan 12/15/24 Last PVR: None Family History: Prostate Cancer? no Bladder Cancer? no Kidney Cancer? no Accompanied by: Self / Same As Patient Allergies citalopram (From Celexa) Allergy (Mild, Verified 06/27/25 15:19) Abdominal Pain HPI Comments Details: Isabel is a pleasant female. She is a patient of , she is seen for the urologic conditions - nephrolithiasis Longstanding Prior intervention with [facility] Urology No documentation regarding stone composition CT scan - 12/24 bilateral 3 mm stones Start allopurinol and vitamin B6 Encourage lemon water Six-month follow-up ultrasound [facility] Medical History Anxiety Depression History of kidney stones Review of Systems Const Denies chills and Denies fever(s) Card Reports no additional complaints and Denies syncope Resp Denies cough GI Denies abdominal pain and Denies heartburn Reports as per HPI and Denies change in libido Neuro Denies syncope Psych Denies change in libido Endo Denies change in libido Physical Exam Const General: cooperative, healthy appearing, comfortable and no acute distress Orientation/consciousness: patient oriented x3 HEENT Face and sinus: Yes normal facial exam Mouth: moist mucous membranes Neck Neck: Yes normal visual inspection, Yes full ROM and Yes trachea midline Chest Chest palpation & inspection: normal inspection of the chest Resp Effort & Inspection: normal respiratory effort, able to speak in complete sentences and no respiratory distress GI Inspection: Yes normal to inspection Back/Spine/Pelvis Cervical Spine: normal cervical lordosis Thoracic/Lumbar Spine: thoracic and lumbar spine normal to inspection Skin General skin exam: no rashes or lesions noted Neuro General: patient oriented x3, gait normal, tone normal and moves all extremities Extrem General: Yes normal to inspection and Yes capillary refill normal Assessment & Plan Assessment & Plan (1) Nephrolithiasis: Code(s): N20.0 - Calculus of kidney Category: Medical Plan Start allopurinol Start B6 Renal ultrasound six-month Orders: Orders US renal BI 6 Months N20.0 - Calculus of kidney Medications: New allopurinol 100 mg PO DAILY 90 tabs 1RF 90 days N20.0 - Calculus of kidney pyridoxine (vitamin B6) 50 mg PO DAILY 90 tabs 1RF 90 days N20.0 - Calculus of kidney Patient Instructions: This note is constructed using voice recognition software. While every effort has been made to ensure accuracy telecommunications technician errors may have been included. Imaging studies, laboratory and physical exam results were discussed and reviewed in detail. No major barriers to patient understanding were identified. An opportunity to ask questions regarding the treatment plan was provided. All questions were answered. The patient expressed understanding and agreement with the above treatment plan. The patient is aware they should contact our office by phone for worsening of their current condition or the appearance of new urologic symptoms. Compliance is encouraged with any medications and followup testing that is ordered. It is a privilege to participate in the urologic care of your patient. If you have any questions or concerns regarding treatment for the above conditions, or other urologic issues, please do not hesitate to contact me. The office telephone contact is [phone]. Sincerely, Dr John Lazar MD, [facility] - Urology Compassionate Specialist Care for the Genitourinary System Coding Level of Care Code New Pt Level 4 (82314) Diagnoses Nephrolithiasis N20.0
--- OUTSIDE RECORDS SUMMARY | 2025-06-27 17:39 | XMS_ITS | Clinical Summary ---
Author Organization [facility] Address [address] [place] [address] Phone Care Team Providers Care Curriculum Development Specialist Name Role Phone Janna De Paz Primary Care Provider [phone] Allergies Active Allergy Reactions Criticality Noted Date [...] 2 fibroids measuring up to 9.3 cm. Endometrial complex not identified. Depression 01/17/2009 Sleep apnea 07/12/2007 Overview (07/17/2024): Dr lucas on cpap IMO update Systemic lupus erythematosus ([facility] V24, [facility]/ [facility] V28) 03/07/2007 Overview (07/17/2024): 02/05: pleural effusions; + anti-DNA, low complements, arthralgias, rash; treated with Plaquenil and prednisone Eye exam September 2010 Hypothyroidism 11/09/2005 Overview (07/17/2024): Lab Results Component Value Date TSH 45.80 07/12/2020 TSH 10.44 02/29/2012 TSH 18.39 02/17/2012 Referral to endocrine Immunizations Immunization Administration Dates Next Due Hepatitis B (Ewfzonf-L-Viglr , Recombivax HB-Adult) 19yo and older 08/24/2000 PPD Test 04/09/2001,04/07/2001 Surgical History Surgery Date Site/Laterality Comments TUBAL LIGATION PROCEDURE: HISTORICAL TUBAL LIGATION SECTION PROCEDURE: HISTORICAL DELIVERY Medical History Medical History Date Comments Acute bronchospasm 01/31/2007 DX:Acute bron chospasm Pneumonia, organism unspecified(486) 01/31/2007 DX:Pneumonia, organism unspecified(486) Noncompliance with medication regimen 05/10/2008 DX:Noncompliance with medication regimen Systemic lupus erythematosus ([facility] V24, [facility] V28) 03/07/2007 DX:Systemic lupus [facility]mat[facility] ([facility]); COMMENT: 02/05: pleural effusions; + anti-DNA, low [...] Last Done Comments Breast Cancer Screening 1980 Colorectal Cancer Screening: Colonoscopy 1980 Diabetes: Annual Foot Exam 1990 Diabetes: Annual Retina Eye Exam 1990 Hepatitis A Vaccines (1 of 2 - Risk 2-dose series) 1999 HPV Vaccines (1 - 3-dose SCDM series) 2007 Medicare Annual Wellness Visit 07/05/2022 Social Influencers of Health Screening 07/05/2022 Depression Screening 08/02/2024 Diabetes: Annual Urine Albumin-Creatinine Ratio (uACR) 02/23/2025 02/24/2024, 02/17/2012 Diabetes: Annual GFR (Glomerular Filtration Rate) 02/23/2025 02/24/2024, 07/17/2010 COVID-19 Vaccine ( season) 2025 10/07/2023, 07/31/2022, 05/13/2022, Additional history exists Influenza Vaccine (#1) 2025 , 06/01/2023, 05/13/2022, Additional history exists Diabetes: Blood Sugar Control Test (HGBA1C) 04/20/2025 10/18/2024, 07/14/2024 Cholesterol Screening (Lipid Panel) 10/18/2029 10/18/2024, 10/18/2024, 10/07/2023, Additional history exists DTaP,Tdap,and Td Vaccines (3 - Td or Tdap) 06/01/2033 06/01/2023, 01/13/2013 RSV Immunization Adult Patients (1 - 1-dose 75+ series) 2055 HIV Screening Completed 02/01/2012 Hepatitis C Screening Completed 07/31/2022, 011 Hepatitis B Vaccines Completed 10/07/2023, 08/24/2000, 06/16/2000 Pneumococcal Vaccine: Pediatrics (0 to 5 Years) and At-Risk Patients (6 to 49 Years) Aged Out 07/14/2024, 02/10/2007 No longer [...] Results * Urine Albumin Creatinine Ratio (02/17/2012) Pathologist [facility] hospital Urine Albumin Creatinine Ratio Abstracted [facility] Provider HEALTH MAINTENANCE Final Result * HIV Screening (02/01/2012) Pathologist [facility] HIV Screening Abstracted [facility] Provider HEALTH MAINTENANCE Final Result * Hepatitis C Screening (07/15/2011) Pathologist [facility] Hepatitis C Screening Abstracted [facility] Provider HEALTH MAINTENANCE Final Result * Annual BMP Blood Test (07/17/2010) Pathologist Critical [facility] hospital Annual BMP Blood Test Abstracted [facility] Provider HEALTH MAINTENANCE Final Result from Last 3 Months or Most Recently Relevant to Health Maintenance Insurance MEDICARE MEDICAID - [place] Care Teams Curriculum Development Specialist Relationship Specialty Start Date End Date Janna De Paz PA [address] [place] [address] PCP - General Internal Medicine 05/12/19
== END 2025-06-27 16:11 | disposition home or self-care (01) ==
LOC: HO.HUSH 15:06
PROVIDERS: PCP Nurse Practitioner; Visit Provider Urology
DX: N20.0 Calculus of kidney (principal)
CPT/HCPCS: 99204

== ENCOUNTER → 2025-06-27 15:05 | Outpatient (BNVA) | payer MEDICARE, MEDICAID, SELFPAY | PROVIDERS: PCP Nurse Practitioner; Visit Provider Urology | DX: N20.0 Calculus of kidney (principal); Z79.82 Long term (current) use of aspirin | CPT/HCPCS: 99202 ==